=== PATIENT | female | born 1935 | race Caucasian/White ===

== ENCOUNTER → 2017-11-24 10:36 | Outpatient (CLI) | payer MEDICARE, OTHER, SELFPAY ==
--- NOTE | 2017-11-24 10:42 | RAD_ITS ---
STUDY: X-RAY CHEST REASON FOR EXAM: Female, 81 years old. Cough and chest pain. TECHNIQUE: Frontal and lateral views of the chest. COMPARISON: 07/26/2014. FINDINGS: The lungs are hyperexpanded. There are coarsened interstitial markings suggestive of mild chronic fibrosis. No gross focal infiltrates. No gross effusions. Normal size heart. Normal mediastinum and david. Normal visualized pulmonary arteries. Normal visualized aortic arch and descending thoracic aorta. There are diffuse degenerative changes of the visualized thoracic spine. Normal visualized ribs, clavicles, and shoulders. There is no demonstrated abnormality of the visualized soft tissue structures of the upper abdomen. RAD/Chest PA and Lateral IMPRESSION: There are findings consistent with COPD. There is no evidence of acute chest disease. Electronically Signed: César Ignacio MD at 18:13 EDT , Service support ,
== END ==
PROVIDERS: Family Provider Nurse Practitioner; PCP Nurse Practitioner; Visit Provider Nurse Practitioner
DX: N18.3 Chronic kidney disease, stage 3 (moderate) (principal)
CPT/HCPCS: 71046

== ENCOUNTER 2017-12-11 08:55 | Day surgery (SDC) | payer MEDICARE, OTHER, SELFPAY ==
[2017-12-11 09:32] VITALS: BP 142/77; PULSE 80; RESP 16; TEMP 37.1; O2SAT 98; BMI 24.0
[2017-12-11] MEDS: Phenazopyridine 95 MG Tablet 190 MG PO (09:48)
[2017-12-11] MEDS: Cefazolin 2 GM in 0.9% Normal Saline 100 ML IV (10:32)
[2017-12-11] MEDS: Bupiv/Epi 0.5% Mpf 30 ML Vial (10:35)
--- NOTE | 2017-12-11 11:45 | VAGMU_PTH ---
PATIENT: LINDSAY SALDIVAR LOC: [facility] [place] U#:[id number] AGE/SX: 81/F ROOM: RE12/11/[address]: Dr. Mary Jo Aguilar MD : [id number] BED: DIS: 12/11/2017 SPEC #: [id number] RECD: 12/11/17 12:26 STATUS: ZEYAD MALENA #: [id number] BROOKE: 12/11/17 11:[address]: Mary Jo Aguilar DEPT: SURGICAL PATHOLOGY RECD BY: Deangelo Bran ENTERED: 12/11/17 13:13 SP TYPE: VAG MUCOSA OTHR DR: Mary Jo Grier NP-Lynn Tissues: Vagina, NOS Procedures: Surgery Specimen Level III HEADER OPERATION: Colpocleisis perineoplasty cysto PRE-OP DIAGNOSIS: Vaginal vault prolapse TISSUE SUBMITTED: Vaginal mucosa MICROSCOPIC DIAGNOSIS Vaginal mucosa: Fragments of squamous mucosa with focal hyperkeratosis and parakeratosis. SJ:cammy 4/30/18 MICROSCOPIC DESCRIPTION Slides are reviewed. GROSS DESCRIPTION Received in fixative is one container labeled with the patient's name and designated vaginal mucosa. The specimen consists of three glistening fragments of pink-guadalupe mucosa with hemorrhagic submucosal tissue that in aggregate measure 8.5 x 6 x 0.5 cm. No mass lesions are identified. Crime Scene Photographer sections are submitted in one cassette. / AM:cammy 12/11/17 TC:5 CPT: 87094
--- NOTE | 2017-12-11 11:57 | PCM.OPRPT ---
Problem List (1) Vaginal vault prolapse after hysterectomy Status: Acute Report of Operation Date of Procedure: 12/11/17 Pre-Operative Diagnosis: vaginal vault prolapse after hysterectomy Post-Operative Diagnosis: same Surgery/Procedure Performed:: Colpocleisis, perineoplasty and cystoscopy Description of Surgical Findings:: The patient was taken to the operating room where general anesthesia was initiated. The patient was placed in dorsal lithotomy position and prepped and draped in sterile fashion. A surgical time out occurred. A coombs catheter was placed in the patient's bladder. The vaginal epithelium overlying the prolapsed vaginal vault was grasped with two Allis clamps, injected with 0.25% Marcaine with epinephrine and four incisions were performed to divide the vaginal wall into four quandrants. The underlying fascia was dissected off the overlying vaginal epithelium until the herniation of the fascia was completely exposed. Hemostasis was achieved with electrosurgical cautery. The herniation was repaired in the traditional fashion using imbricating purse string sutures of 2-O PDS on a CT-1 needle. Once the hernation was completely repaired, the redundant vaginal epithelium was excised and the incision was closed with a running, locking 3-O vicryl suture. Excellent hemostasis was noted. The perineoplasty was then performed by denuding the vaginal epithelium from 3 o'clock to 9 o'clock on the introitus along the posterior fourchette. The was then closed in three layers with 3-O vicryl. The vagina was packed with Kerlex gauze soaked in estrogen cream. Anesthesia was discontinued. All needle, instrument, and sponge counts were correct x 2. The patient was taken to recovery room in stable condition draining clear urine from her coombs catheter. clinical project assistant: Courtney Rivas Type of Anesthesia:: MAC/Supplemental/Local
[2017-12-11 12:02] VITALS: BP 107/65; BP 142/77; PULSE 82; RESP 16; TEMP 37.2; O2SAT 92
--- NOTE | 2017-12-11 12:06 | OP.PCM_ITS ---
Problem List (1) Vaginal vault prolapse after hysterectomy Status: Acute Report of Operation Date of Procedure: 12/11/17 Pre-Operative Diagnosis: vaginal vault prolapse after hysterectomy Post-Operative Diagnosis: same Surgery/Procedure Performed:: Colpocleisis, perineoplasty and cystoscopy Description of Surgical Findings:: The patient was taken to the operating room where general anesthesia was initiated. The patient was placed in dorsal lithotomy position and prepped and draped in sterile fashion. A surgical time out occurred. A coombs catheter was placed in the patient's bladder. The vaginal epithelium overlying the prolapsed vaginal vault was grasped with two Allis clamps, injected with 0.25% Marcaine with epinephrine and four incisions were performed to divide the vaginal wall into four quandrants. The underlying fascia was dissected off the overlying vaginal epithelium until the herniation of the fascia was completely exposed. Hemostasis was achieved with electrosurgical cautery. The herniation was repaired in the traditional fashion using imbricating purse string sutures of 2-O PDS on a CT-1 needle. Once the hernation was completely repaired, the redundant vaginal epithelium was excised and the incision was closed with a running, locking 3-O vicryl suture. Excellent hemostasis was noted. The perineoplasty was then performed by denuding the vaginal epithelium from 3 o 'clock to 9 o'clock on the introitus along the posterior fourchette. The was then closed in three layers with 3-O vicryl. The vagina was packed with Kerlex gauze soaked in estrogen cream. Anesthesia was discontinued. All needle, instrument, and sponge counts were correct x 2. The patient was taken to recovery room in stable condition draining clear urine from her coombs catheter. jewel bearing broacher: Courtney Rivas Type of Anesthesia:: MAC/Supplemental/Local
--- NOTE | 2017-12-11 12:07 | PCM.DC.GS ---
Discharge Activity: Return to Normal Activity, May not drive while taking narcotic pain medications. May shower in (days): 1 Call your doctor if your incision/area has: Continuous Slow Oozing, Sudden Increased Bleeding, Increased Pain/ Swelling, Increased Redness, Foul Smelling Discharge, Swelling at the incision site Call your doctor if you observe: Fever of 101 or Higher, Coldness, Increased Pain, Numbness or Tingling, Inability to urinate, Inability to have a bowel movement Allergies/Adverse Reactions: Allergies Sulfa (Sulfonamide Antibiotics) Allergy (Verified 09/30/14 07:27) Rash belladonna alkaloids Adverse Reaction (Verified 09/30/14 07:27) Other MADE ME FEEL WEIRD Medications to take at Discharge Amlodipine [Norvasc] 7.5 mg PO DAILY 08/23/14 Omeprazole [Prilosec] 40 mg PO DAILY 08/23/14 Paroxetine HCl [Paxil] 40 mg PO DAILY 08/23/14 Ibuprofen [Motrin] 800 mg PO TID PRN PRN #60 tablet 09/26/14 Albuterol IH (ProAir) [Proair Hfa (SP)Vent Pts] 1 puff INHALATION DAILY 12/04/17 Calcium Carbonate [Calcium] 600 mg PO DAILY 12/04/17 Cholecalciferol (Vitamin D3) [Vitamin D3] 2,000 unit PO BID 12/04/17 Levothyroxine [Synthroid] 50 mcg PO DAILY 12/04/17 Pyridoxine HCl [Vitamin B-6] 25 mg PO DAILY 12/04/17 Triamcinolone Acetonide [Nasacort] 1 spray NS DAILY 12/04/17 Primary Care Physician: Mary Jo Grier [Primary Care Provider] - Please Follow Up With: Mary Jo Aguilar MD When: 2 weeks Proposed Discharge Date: 12/11/17
[2017-12-11 12:10] VITALS: BP 117/66; BP 142/77; PULSE 95; RESP 16; O2SAT 94
[2017-12-11 12:15] VITALS: BP 112/76; BP 142/77; PULSE 95; RESP 16; O2SAT 95
[2017-12-11 12:20] VITALS: BP 122/70; BP 142/77; PULSE 92; RESP 16; TEMP 36.9; O2SAT 97
[2017-12-11 13:53] VITALS: BP 142/77
== END 2017-12-11 13:58 | disposition home or self-care (01) ==
LOC: SDC 08:55 → AC 08:57
PROVIDERS: Family Provider Nurse Practitioner; PCP Nurse Practitioner; Visit Provider Obstetrics & Gynecology
PROC: 0TJB8ZZ Inspection of Bladder, Via Natural or Artificial Opening Endoscopic (ICD-10-PCS; CPT 57120; principal; 2017-12-11 11:30)
DX: N90.4 Leukoplakia of vulva (principal); R23.4 Changes in skin texture; M19.90 Unspecified osteoarthritis, unspecified site; E78.00 Pure hypercholesterolemia, unspecified; K21.9 Gastro-esophageal reflux disease without esophagitis; F32.9 Major depressive disorder, single episode, unspecified; F41.9 Anxiety disorder, unspecified; J45.909 Unspecified asthma, uncomplicated; I10 Essential (primary) hypertension; E07.9 Disorder of thyroid, unspecified; Z90.710 Acquired absence of both cervix and uterus; Z79.51 Long term (current) use of inhaled steroids; Z79.899 Other long term (current) drug therapy
CPT/HCPCS: 56810; 57120; 88304; J7120; C1758; J1940

== ENCOUNTER → 2018-01-13 11:04 | Outpatient (CLI) | payer MEDICARE, OTHER, SELFPAY ==
--- NOTE | 2018-01-13 11:07 | RAD_ITS ---
STUDY: X-RAY - LEFT ANKLE REASON FOR EXAM: Female, 82 years old. Left ankle edema TECHNIQUE: 3 view(s) of the ankle. COMPARISON: None. FINDINGS: Normal visualized distal tibia and fibula. Normal medial and lateral malleoli. Normal tibiotalar articulation and ankle mortise. Normal visualized talus and calcaneus. The visualized subtalar, talonavicular, calcaneocuboid and tarsal articulations are normal. There is no demonstrated fracture. There is soft tissue swelling. RAD/Ankle min 3 Views IMPRESSION: Soft tissue edema. No acute bony abnormality. Electronically Signed: Jacky Bolaños DO at 10:50 EDT Tel , Service support ,
== END ==
PROVIDERS: Family Provider Nurse Practitioner; PCP Nurse Practitioner; Visit Provider Nurse Practitioner
DX: M25.471 Effusion, right ankle (principal)
CPT/HCPCS: 73610

== ENCOUNTER → 2018-04-08 10:51 | Outpatient (CLI) | payer MEDICARE, OTHER, SELFPAY ==
[2018-04-08 11:17] LABS: Mucous, Urine 0 SEEN /hpf (<or=2+); Red Blood Cells-Urine 0 SEEN /hpf (0-5); Squamous Epithelial Cells - UA 0 SEEN /hpf (5-10)
[2018-04-08 11:33] LABS: Color, Urine Yellow (Yellow); Glucose, Dipstick Normal (Normal); Ketone-Dipstick Negative (Negative); Leukocyte Esterase-Dipstick 500 /ul (Negative); Nitrite-Dipstick Negative (Negative); Occult Blood-Urine 250 /ul (Negative); Protein-Dipstick 100 mg/dl (Negative); Urine Bilirubin Dipstick Negative (Negative); Urine Clarity Turbid (Clear); Urine Urobilinogen Normal (Normal)
[2018-04-08 11:39] LABS: Bacteria 1+ /hpf (None Seen); White Blood Cells >100 SEEN /hpf (0-5)
== END ==
PROVIDERS: Family Provider Nurse Practitioner; PCP Nurse Practitioner; Visit Provider Obstetrics & Gynecology
DX: R31.9 Hematuria, unspecified (principal)
CPT/HCPCS: 81001; 87077; 87086; 87088; 87186

== ENCOUNTER → 2018-05-27 16:33 | Outpatient (CLI) | payer MEDICARE, OTHER, SELFPAY | PROVIDERS: Referring Provider Nurse Practitioner Adult Health; Visit Provider Nurse Practitioner Adult Health | DX: R31.9 Hematuria, unspecified (principal) | CPT/HCPCS: 87086 ==

== ENCOUNTER → 2018-08-05 10:02 | Outpatient (CLI) | payer MEDICARE, OTHER, SELFPAY ==
--- NOTE | 2018-08-05 10:05 | BI_ITS ---
MAMMOGRAPHY - BILATERAL SCREENING REASON FOR EXAM: Female, 82 years old. Routine annual screening examination. PERTINENT HISTORY: Sister with breast cancer. TECHNIQUE: Digital bilateral breast issa (3D mammographic acquisition) in the CC and MLO projections. 2-D mediolateral oblique (MLO) and craniocaudad (CC) views of both breasts were obtained. CAD: Full Field Digital Mammography with Computer Added Detection was performed. COMPARISON: Comparison is made with prior study dated September 23, 2016 and June 12, 2015. FINDINGS: Breast Composition: There are scattered areas of fibroglandular density. There are no dominant masses or suspicious calcifications. Stable benign-appearing bilateral axillary lymph nodes. No other significant abnormalities are identified. There has been no significant change since the prior study. BI/SCREENING MAMM (CAD), BILAT IMPRESSION: Stable bilateral screening mammogram. Yearly follow-up mammogram recommended. (A) ASSESSMENT CATEGORY: BIRADS Category 2: Benign. A letter regarding these results will be sent to the patient by the facility within 30 days. Approximately 10% of breast cancers are not detected by mammography. A normal mammogram should not delay biopsy of a clinically suspicious abnormality. [id number] Electronically Signed: Justen Norton MD at 15:27 EST Tel [phone], Service support ,
--- NOTE | 2018-08-05 10:22 | BD_ITS ---
STUDY: DUAL ENERGY X-RAY ABSORPTIOMETRY / DXA REASON FOR EXAM: Female, 82 years old. The patient is postmenopausal. Loss of height. TECHNIQUE: Bone Mineral Density (BMD) measurements of lumbar spine and bilateral hips were obtained. COMPARISON: Comparison is made with prior study dated July 12, 2013. FINDINGS: Lumbar Spine (L1-L4): g/cm2 (0.653) / T-score (-4.3) / Z-score (-2.4) Findings are suggestive of osteoporosis with a high fracture risk. Left Femur Total: g/cm2 (0.737) / T-score (-2.1) / Z-score (-0.1) Left Femoral Neck: g/cm2 (0.681) / T-score (-2.6) / Z-score (-0.4) Right Femur Total: g/cm2 (0.768) / T-score (-1.9) / Z-score (0.1) Right Femoral Neck: g/cm2 (0.679) / T-score (-2.6) / Z-score (-0.4) The T-Scores on the most recent prior examination were: Lumbar Spine (L1-L4): There has been worsening of bone density since the previous examination. Left Femur Total: which represents a worsening of 1.5%. Right Femur Total: which represents a worsening of 1.9%. BD/DXA BONE DENS W/VERT FX ASMT IMPRESSION: The patient is considered osteoporotic as outlined below according to World Anthony Organization (WHO) criteria with a high fracture risk. There has been worsening of bone density since the previous examination. Reference Information: The T-score is the number of standard deviations above or below the standard which is normal for young adults at their peak bone mineral density. The World Health Organization (WHO) interprets the T-scores as follows: Above -1 Normal bone density Between -1 and -2.5 Osteopenia Equal to / or below -2.5 Osteoporosis As a practical clinical guideline, osteopenia may be graded as follows: Mild -1 through -1.5 Moderate -1.6 through -2.0 Severe -2.1 through -2.4 The Z-score is the number of standard deviations above or below age-matched controls. A Z-score of less than -1.5 would be considered abnormal. References: 1. NIH Osteoporosis and Related Bone Diseases http://www.osteo.org 2. International Society for Clinical Densitometry http://www.iscd.org 3. National Osteoporosis Foundation http://www.nof.org Electronically Signed: Justen Norton MD at 10:45 EST Tel [phone], Service support ,
== END ==
PROVIDERS: Family Provider Nurse Practitioner; PCP Nurse Practitioner; Visit Provider Nurse Practitioner
DX: Z12.31 Encounter for screening mammogram for malignant neoplasm of breast (principal); Z78.0 Asymptomatic menopausal state
CPT/HCPCS: 77063; 77067; 77085

== ENCOUNTER → 2019-03-17 | Outpatient (CLI) | payer MEDICARE, OTHER, SELFPAY | END | disposition home or self-care (01) | LOC: LABSPEC 16:11 | PROVIDERS: Family Provider Nurse Practitioner; PCP Nurse Practitioner | DX: R30.0 Dysuria (principal) | CPT/HCPCS: 87077; 87086; 87088; 87186 ==

== ENCOUNTER → 2019-08-08 10:09 | Outpatient (CLI) | payer MEDICARE, OTHER, SELFPAY ==
--- NOTE | 2019-08-08 10:14 | BI_ITS ---
MAMMOGRAPHY - BILATERAL SCREENING 3-D TOMOSYNTHESIS REASON FOR EXAM: Female, 83 years old. 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 TECHNIQUE: 2-D mammograms and 3-D Tomosynthesis of the breast (s) were performed. CAD was performed. COMPARISON: 08/05/2018, 09/23/2016 FINDINGS: The breast composition is composed of scattered fibroglandular density. Scattered benign calcifications are seen. No dense spiculated masses or suspicious microcalcifications are identified. No architectural distortion is identified. There is no skin thickening or retraction. There has been no significant change since the prior study. BI/SCREEN MAMM (CAD) W/MARTI BILAT IMPRESSION: No mammographic signs of malignancy. Routine yearly mammograms recommended. ASSESSMENT CATEGORY: BIRADS Category 2: Benign. A letter regarding these results will be sent to the patient by the facility within 30 days. FOLLOW UP RECOMMENDATION: Yearly follow up mammogram recommended. (A) Approximately 10% of breast cancers are not detected by mammography. A normal mammogram should not delay biopsy of a clinically suspicious abnormality. Electronically Signed: Sina Bolden MD at 21:20 EST Tel [phone], Service support ,
== END ==
PROVIDERS: Family Provider Nurse Practitioner; PCP Nurse Practitioner; Referring Provider Nurse Practitioner; Visit Provider Nurse Practitioner
DX: Z12.31 Encounter for screening mammogram for malignant neoplasm of breast (principal)
CPT/HCPCS: 77063; 77067

== ENCOUNTER → 2020-02-29 | Outpatient (CLI) | payer MEDICARE, OTHER, SELFPAY ==
--- NOTE | 2020-02-29 15:40 | RAD_ITS ---
STUDY: X-RAY - RIGHT KNEE REASON FOR EXAM: Female, 84 years old. CHRONIC PAIN TECHNIQUE: 4 view(s) of the knee. COMPARISON: None. FINDINGS: Normal visualized distal femur. Normal visualized proximal tibia and fibula. Normal proximal tibiofibular articulation. There are mild degenerative changes with joint space narrowing of the medial knee compartment. Normal lateral femorotibial compartment. Normal patellofemoral articulation. The soft tissue structures are unremarkable. RAD/Knee 4 or More Views IMPRESSION: Mild degenerative changes with joint space narrowing of the medial knee compartment. Electronically Signed: Woody Otoole MD at 16:09 EDT , Service support ,
== END | disposition home or self-care (01) ==
LOC: HPRAD 15:35
PROVIDERS: PCP Nurse Practitioner; Referring Provider Nurse Practitioner; Visit Provider Nurse Practitioner
DX: M25.561 Pain in right knee (principal)
CPT/HCPCS: 73564

== ENCOUNTER → 2020-06-13 | Outpatient (CLI) | payer MEDICARE, OTHER, SELFPAY | END | disposition home or self-care (01) | LOC: LABSPEC 13:15 | PROVIDERS: PCP Nurse Practitioner; Visit Provider Nurse Practitioner Adult Health | DX: N39.0 Urinary tract infection, site not specified (principal) | CPT/HCPCS: 87077; 87086; 87088; 87186 ==

== ENCOUNTER → 2020-08-14 13:18 | Outpatient (CLI) | payer MEDICARE, OTHER, SELFPAY ==
--- NOTE | 2020-08-14 13:19 | BI_ITS ---
MAMMOGRAPHY - BILATERAL SCREENING REASON FOR EXAM: Female, 84 years old. Routine annual screening examination. PERTINENT HISTORY: FA HX OF SISTER @ AGE 43 - LT EXC BX 1980 - BILAT MOLES MARKED - CURRENT HRT CREAM X 2 YRS TECHNIQUE: Digital bilateral breast marti (3D mammographic acquisition) in the CC and MLO projections. 2-D mediolateral oblique (MLO) and craniocaudad (CC) views of both breasts were obtained. CAD: Full Field Digital Mammography with Computer Added Detection was performed. COMPARISON: None. FINDINGS: Breast Composition: The breasts are almost entirely fatty. There is a new partially circumscribed mass in the upper outer quadrant of the right breast measures 5 mm for which further evaluation by ultrasound is recommended. There are no suspicious calcifications. No other significant abnormalities are identified. BI/SCREEN MAMM (CAD) W/MARTI BILAT IMPRESSION: Further ultrasound evaluation recommended, as described above. (E) ASSESSMENT CATEGORY: BIRADS Category 0: Incomplete. Need additional imaging evaluation. A letter regarding these results will be sent to the patient by the facility within 30 days. Approximately 10% of breast cancers are not detected by mammography. A normal mammogram should not delay biopsy of a clinically suspicious abnormality. [id number] Electronically Signed: Ross Hutchinson, at 15:15 EST Tel , Service support ,
--- NOTE | 2020-08-14 13:22 | BD_ITS ---
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 COMPARISON: Comparison is made with prior study dated 08/05/2018. FINDINGS: Lumbar Spine (L1-L4): g/cm2 (0.641) / T-score (-4.4) / Z-score (-2.5) Findings are suggestive of osteoporosis with a high fracture risk. Left Femur Total: g/cm2 (0.748) / T-score (-2.1) / Z-score (0.1) Left Femoral Neck: g/cm2 (0.687) / T-score (-2.5) / Z-score (-0.3) Right Femur Total: g/cm2 (0.74) / T-score (-1.8) / Z-score (0.4) Right Femoral Neck: g/cm2 (0.684) / T-score (-2.5) / Z-score (-0.3) The T-Scores on the most recent prior examination were: Lumbar Spine (L1-L4): There has been worsening of bone density since the previous examination. Left Femur Total: which represents an improvement of 1.5%. Right Femur Total: which represents an improvement of 2.1%. BD/Dexa Bone Density Study IMPRESSION: The patient is considered osteoporotic as outlined below according to World Anthony Organization (WHO) criteria with a high fracture risk. There has been improvement of bone density since the previous examination. Reference Information: The T-score is the number of standard deviations above or below the standard which is normal for young adults at their peak bone mineral density. The World Health Organization (WHO) interprets the T-scores as follows: Above -1 Normal bone density Between -1 and -2.5 Osteopenia Equal to / or below -2.5 Osteoporosis As a practical clinical guideline, osteopenia may be graded as follows: Mild -1 through -1.5 Moderate -1.6 through -2.0 Severe -2.1 through -2.4 The Z-score is the number of standard deviations above or below age-matched controls. A Z-score of less than -1.5 would be considered abnormal. References: 1. NIH Osteoporosis and Related Bone Diseases www osteo.org 2. International Society for Clinical Densitometry www iscd.org 3. National Osteoporosis Foundation www nof.org Electronically Signed: Justen Norton, at 10:33 EST , Service support ,
== END ==
PROVIDERS: PCP Nurse Practitioner; Referring Provider Nurse Practitioner; Visit Provider Nurse Practitioner
DX: Z78.0 Asymptomatic menopausal state (principal); Z12.31 Encounter for screening mammogram for malignant neoplasm of breast
CPT/HCPCS: 77063; 77067; 77080

== ENCOUNTER → 2020-08-20 10:47 | Outpatient (CLI) | payer MEDICARE, OTHER, SELFPAY ==
--- NOTE | 2020-08-20 10:49 | US_ITS ---
STUDY: ULTRASOUND BREAST - RIGHT REASON FOR EXAM: Female, 84 years old. Abnormal screening mammogram. TECHNIQUE: Axial and longitudinal images of the RIGHT breast were performed with a high resolution ultrasound transducer. # OF IMAGES: 40 COMPARISON: Comparison is made with prior mammogram dated 08/14/2020. FINDINGS: RIGHT Breast: The mammographic abnormality corresponds to a 4 mm x 3 mm x 3 mm cyst at the 9 o''clock position of the breast at 5 cm from nipple. US/Breast Limited Unilateral IMPRESSION: The mammographic abnormality corresponds to a 4 mm x 3 mm x 3 mm cyst at the 9 o''clock position of the breast at 5 cm from the nipple. ASSESSMENT CATEGORY: BIRADS Category 2: Benign. A letter regarding these results will be sent to the patient by the facility within 30 days. Electronically Signed: Justen Norton, at 15:49 EST , Service support ,
== END ==
PROVIDERS: PCP Nurse Practitioner; Visit Provider Nurse Practitioner
DX: N63.11 Unspecified lump in the right breast, upper outer quadrant (principal)
CPT/HCPCS: 76642

== ENCOUNTER 2020-09-13 14:58 | Outpatient (RCR) | payer MEDICARE, OTHER, SELFPAY | END 2020-09-13 23:59 | LOC: IMMUN 14:58 | PROVIDERS: PCP Nurse Practitioner; Visit Provider Family Medicine | DX: Z23 Encounter for immunization (principal) | CPT/HCPCS: 0011A; 0012A; 91301 ==

== ENCOUNTER → 2021-04-15 | Outpatient (CLI) | payer MEDICARE, OTHER, SELFPAY | END | disposition home or self-care (01) | LOC: LABSPEC 16:50 | PROVIDERS: PCP Nurse Practitioner; Referring Provider Nurse Practitioner Adult Health; Visit Provider Nurse Practitioner Adult Health | DX: R30.0 Dysuria (principal) | CPT/HCPCS: 87086; 87088 ==

== ENCOUNTER 2021-09-24 16:50 | Outpatient (CLI) | payer MEDICARE, SELFPAY | END 2021-09-24 23:59 | disposition home or self-care (01) | LOC: LABSPEC 16:59 | PROVIDERS: PCP Nurse Practitioner; Visit Provider Urology | DX: R31.9 Hematuria, unspecified (principal) | CPT/HCPCS: 87086; 87088 ==

== ENCOUNTER 2021-11-05 16:51 | Outpatient (CLI) | payer MEDICARE, SELFPAY ==
[2021-11-05 16:55] LABS: Bacteria 0 SEEN /hpf (None Seen); Mucous, Urine 0 SEEN /hpf (<or=2+)
[2021-11-05 17:40] LABS: Color, Urine Yellow (Yellow); Glucose, Dipstick Normal (Normal); Ketone-Dipstick Negative (Negative); Leukocyte Esterase-Dipstick 500 /ul (Negative); Nitrite-Dipstick Negative (Negative); Occult Blood-Urine 150 /ul (Negative); Protein-Dipstick 15 mg/dl (Negative); Urine Bilirubin Dipstick Negative (Negative); Urine Clarity Sl. Cloudy (Clear); Urine Urobilinogen Normal (Normal)
[2021-11-05 17:50] LABS: Amorphous Sediment 1+ URATE; Red Blood Cells-Urine 5-10 SEEN /hpf (0-5); Squamous Epithelial Cells - UA 0-5 SEEN /hpf (5-10); White Blood Cells 50-100 SEEN /hpf (0-5)
== END 2021-11-05 23:59 | disposition home or self-care (01) ==
LOC: LABSPEC 16:52
PROVIDERS: PCP Nurse Practitioner; Visit Provider Obstetrics & Gynecology
DX: R35.0 Frequency of micturition (principal)
CPT/HCPCS: 81001; 87077; 87086; 87088; 87186

== ENCOUNTER 2021-11-12 16:52 | Outpatient (CLI) | payer MEDICARE, SELFPAY | END 2021-11-12 23:59 | disposition home or self-care (01) | LOC: LABSPEC 16:54 | PROVIDERS: PCP Nurse Practitioner; Referring Provider Urology; Visit Provider Urology | DX: R31.21 Asymptomatic microscopic hematuria (principal) | CPT/HCPCS: 87086; 87088 ==

== ENCOUNTER 2021-11-22 06:37 | Outpatient (CLI) | payer MEDICARE, SELFPAY ==
--- NOTE | 2021-11-22 06:42 | CT_ITS ---
STUDY: CT ABDOMEN AND PELVIS WITH AND WITHOUT CONTRAST REASON FOR EXAM: Female, 85 years old. CYSTITIS WITH HEMATURIA RADIATION DOSAGE (If Supplied By Facility): CTDIvol = ( 16.10 ) mGy, DLP = ( 1910.17 ) mGycm TECHNIQUE: Transaxial images were obtained from the dome of the diaphragm to the symphysis pubis without oral contrast. IV 100mL Isovue-300 was administered. Sagittal and coronal images were reconstructed. Individualized dose optimization techniques were used for this CT. COMPARISON: None. FINDINGS: Mild increased linear markings at the lung bases slightly more prominent on the right side suggestive of a mild linear scarring. Coronary artery calcification. Normal liver. There are surgical clips in the gallbladder fossa consistent with a prior cholecystectomy. Normal spleen. Normal pancreas. Normal bilateral adrenal glands. Normal right kidney. There is a 6.1 cm x 6.1 cm cyst in the lateral upper midportion of the left kidney. Normal visualized stomach. Normal small intestine. Normal colon. The appendix is visualized and appears normal. There is scattered atherosclerotic calcification of the abdominal aorta and its major visceral branches, without a demonstrated aneurysm. Normal inferior vena cava. Normal retroperitoneum. Mild degree of mural thickening at the base of the bladder more prominent on the right side. There is absence of the uterus consistent with a prior hysterectomy. There is a 3 cm cyst in the left ovary. Follow-up is recommended. There is a small umbilical hernia containing fat. There are degenerative changes of the visualized lumbar spine. 50% loss of height of the L4 vertebrae. CT/CT Abd/Pelvis W/WO Contrast IMPRESSION: 6.1 cm x 6.1 cm cyst in the lateral upper midportion of the left kidney. 3 cm cyst in the left ovary. Follow-up is recommended. Mild degree of mural thickening at the base of the bladder more prominent on the right side. Electronically Signed: Justen Norton MD at 14:05 EDT ,
== END 2021-11-22 23:59 | disposition home or self-care (01) ==
PROVIDERS: PCP Nurse Practitioner; Referring Provider Urology; Visit Provider Urology
DX: N30.01 Acute cystitis with hematuria (principal)
CPT/HCPCS: 74178; Q9967

== ENCOUNTER → 2022-01-06 | Outpatient (CLI) | payer MEDICARE, SELFPAY ==
--- NOTE | 2022-01-06 14:57 | VDLE_ITS ---
Reason For Study: Pain RIGHT LEFT CFV is compressible, spontaneous, phasic, GSV is normal. competent and demonstrates normal CFV is compressible, spontaneous, phasic, augmentation. competent, and demonstrates normal Procedure augmentation. This is a venous duplex using B-mode, color FV is compressible, spontaneous, phasic, flow and spectral Doppler. competent and demonstrates normal Exam performed in department. augmentation. A preliminary report was called and/or faxed POP V is compressible, spontaneous, phasic, to Dr. Paige. competent and demonstrates normal augmentation. T/P Trunk is compressible. PTV is compressible. LT PerV is compressible. VL/Venous Duplex US, Unilateral Interpretation Summary There is no evidence of left lower extremity deep vein thrombosis. Left great s aphenous vein appears patent and compressible segmentally. Normal flow patterns right common femoral vein Ordering Physician: Irasema Paige Referring Physician: Irasema Paige Performed By: Luna Sam, PETE, RVT
== END | disposition home or self-care (01) ==
LOC: CVS 14:55
PROVIDERS: PCP Internal Medicine; Visit Provider Internal Medicine
DX: M79.662 Pain in left lower leg (principal)
CPT/HCPCS: 93971

== ENCOUNTER → 2022-10-08 | Outpatient (CLI) | payer MEDICARE, SELFPAY ==
--- NOTE | 2022-10-08 14:19 | US_ITS ---
INDICATION: Ovarian cyst, left EXAMINATION: Ultrasound US Pelvis Non-OB Complete TECHNIQUE: Transabdominal and transvaginal pelvic ultrasound was performed. Grayscale, spectral waveform, and color flow Doppler evaluation of the adnexa. COMPARISON: CT 11/22/2021. FINDINGS: UTERUS: Surgically absent. RIGHT OVARY: Not visualized. LEFT OVARY: Measures 4 x 3.8 x 2.6 cm. Non-enlarged, normal echogenicity. There is normal arterial inflow and venous outflow present in the left ovary. There is a well-circumscribed anechoic simple appearing cyst in the left ovary measuring 3.3 cm. FREE FLUID: None. US/Pelvic (Non ) IMPRESSION: Simple 3.3 cm cyst in the left ovary. Electronically Signed: Robert Simpson MD at 23:29 EST ,
== END | disposition home or self-care (01) ==
PROVIDERS: PCP Nurse Practitioner Family; Visit Provider Nurse Practitioner Family
DX: N83.202 Unspecified ovarian cyst, left side (principal)
CPT/HCPCS: 76856

== ENCOUNTER → 2022-10-15 | Outpatient (CLI) | payer MEDICARE, SELFPAY ==
[2022-10-17 08:29] LABS: Cancer Antigen 125 12.9 U/mL (0.0-38.1)
== END | disposition home or self-care (01) ==
PROVIDERS: PCP Nurse Practitioner Family; Referring Provider Nurse Practitioner Family; Visit Provider Nurse Practitioner Family
DX: N83.202 Unspecified ovarian cyst, left side (principal)
CPT/HCPCS: 36415; 86304

== ENCOUNTER 2023-04-15 11:14 | Emergency (ER) | payer MEDICARE, SELFPAY ==
[2023-04-15 11:15] VITALS: BP 146/88; PULSE 86; RESP 14; TEMP 36.2; O2SAT 97; BMI 25.7
--- NOTE | 2023-04-15 11:35 | CT_ITS ---
STUDY: CT ABDOMEN AND PELVIS WITH CONTRAST REASON FOR EXAM: Female, 87 years old. rlq abdominal pain. PRIOR CHOLECYSTECTOMY,HYSTERECTOMY RADIATION DOSAGE (If Supplied By Facility): CTDIvol = ( 12.46 ) mGy, DLP = ( 863.89 ) mGycm TECHNIQUE: Transaxial images were obtained from the dome of the diaphragm to the symphysis pubis without oral contrast. IV 100mL Isovue-300 was administered. Sagittal and coronal images were reconstructed. Individualized dose optimization techniques were used for this CT. COMPARISON: Comparison is made with prior study dated November 22, 2021. FINDINGS: Mild increase in markings at the lung bases suggestive of linear atelectasis and/or scarring. Coronary artery calcification. Normal liver. There are surgical clips in the gallbladder fossa consistent with a prior cholecystectomy. Normal spleen. Normal pancreas. Normal bilateral adrenal glands. Normal right kidney. There is a 6.8 cm x 6.5 cm cyst in the mid lower pole of the left kidney. There is a small hiatal hernia. Normal small intestine. Normal colon. There is non-visualization of the appendix. There is scattered atherosclerotic calcification of the abdominal aorta, without a demonstrated aneurysm. Normal inferior vena cava. Normal retroperitoneum. Normal urinary bladder. There is a 2.9 cm x 3.2 cm cyst in the left ovary. This is essentially unchanged as compared to prior study. The patient is status post hysterectomy. There is a small umbilical hernia containing fat. There are degenerative changes of the visualized lumbar spine. Stable loss of height of the superior endplate of the L4 vertebrae. CT/Abdomen/Pelvis W IV Cont ONLY IMPRESSION: Status post cholecystectomy. Stable left renal cyst. Stable cyst in the left ovary. Electronically Signed: Justen Norton MD at 13:49 EDT ,
[2023-04-15] MEDS: 0.9% Normal Saline 1,000 ML 1000 ML IV (11:43)
[2023-04-15] MEDS: Ketorolac 15 MG/ML Vial IV (11:43)
[2023-04-15 11:51] LABS: Absolute Lymphocyte Count 1.24 X10^3/uL (0.83-4.51); Basophil# 0.02 X10^3/uL; Basophil% 0.3 % (0-1); Eosinophil# 0.13 X10^3/uL; Eosinophils% 1.6 % (0-5); Hematocrit 41.9 % (37-47); Hemoglobin 13.7 g/dL (12.0-15.0); Lymphocyte # 1.24 X10^3/ul (0.83-4.51); Lymphocyte % 15.7 % (19-41); Mean Corp Hgb Conc 32.7 g/dL (32-36); Mean Corpuscular Hgb 29.5 pg (27.0-32.0); Mean Corpuscular Volume 90.1 fL (81-99); Mean Platelet Vol. 10.2 fl (6.2-12.0); Monocyte# 0.48 X10^3/uL; Monocyte% 6.1 % (0-10); NRBC Flagged by Analyzer 0 % (0-5); Neutrophil # 6.01 X10^3/uL (2.7-7.7); Platelet Count 195 K/mm3 (150-450); RBC Distribution Width SD 42.9 fl (35.1-43.9); Red Blood Count 4.65 M/mm3 (4.2-5.4); White Blood Count 7.9 K/mm3 (4.4-11.0)
[2023-04-15 12:07] LABS: AST(SGOT) 11 U/L (15-37); Alanine Aminotransfer ALT/SGPT 16 U/L (13-56); Albumin, Serum 3.8 g/dL (3.2-5.0); Alkaline Phosphatase 101 U/L (45-117); Anion Gap 7 (5-15); BUN 26 mg/dL (7-18); BUN/Creat Ratio 18.8 RATIO (10-20); Calcium,Total 9.3 mg/dL (8.5-10.1); Chloride 106 mmol/L (98-107); Creatinine, Serum 1.38 mg/dL (0.55-1.02); EST Glomerular Filtration Rate 39 mL/min (>60); Est Glom Filt Rate - Afr Amer 47 mL/min (>60); Estimated Creatinine Clearance 25.74 ml/min; Globulin 3.8 g/dL (2.2-4.2); Glucose 143 mg/dL (74-106); Lipase 29 U/L (13-75); Potassium 4.1 mmol/L (3.5-5.1); Protein, Total 7.6 g/dL (6.4-8.2); Sodium Level 138 mmol/L (136-145)
[2023-04-15 13:00] LABS: Mucous, Urine 0 SEEN /hpf (<or=2+)
[2023-04-15 13:08] LABS: Color, Urine Yellow (Yellow); Glucose, Dipstick Normal (Normal); Ketone-Dipstick Negative (Negative); Leukocyte Esterase-Dipstick 25 /ul (Negative); Nitrite-Dipstick Negative (Negative); Occult Blood-Urine 25 /ul (Negative); Protein-Dipstick Negative (Negative); Urine Bilirubin Dipstick Negative (Negative); Urine Clarity Clear (Clear); Urine Urobilinogen Normal (Normal)
[2023-04-15 13:14] VITALS: BP 140/78; PULSE 79; RESP 18; O2SAT 96
[2023-04-15 13:21] LABS: Bacteria RARE /hpf (None Seen); Red Blood Cells-Urine 0-5 SEEN /hpf (0-5); Squamous Epithelial Cells - UA 0-5 SEEN /hpf (5-10); White Blood Cells 10-25 SEEN /hpf (0-5)
--- NOTE | 2023-04-15 13:53 | ED.VIS.GI ---
HPI HPI - GI History of Present Illness Chief Complaint: Abd Pain Narrative Narrative: 87-year-old female with right lower abdominal pain. This started this morning upon awakening. Denies fever, chills, nausea, vomiting, diarrhea, constipation. No urinary or vaginal complaints. Patient states she feels otherwise well. She took some ibuprofen for pain and this did not take her pain completely away. Patient has had history of hysterectomy and cholecystectomy but no history of bowel obstruction. [facility] Medical History Arthritis Hemorrhoids Hypertension Knee pain Thyroid disease Home Medications Omeprazole [Prilosec] 40 mg PO DAILY 08/23/14 [History Last Taken 12/11/17 08:15 1] amlodipine 5 mg tablet 7.5 mg PO DAILY 08/23/14 [History Last Taken 12/11/17 08:15 1] paroxetine HCl 40 mg tablet (Paxil) 40 mg PO DAILY 08/23/14 [History Last Taken Unknown] Ibuprofen [Motrin] 800 mg PO TID PRN PRN Abdominal Pain #60 tabs 09/26/14 [Rx Last Taken Unknown] albuterol sulfate 90 mcg/actuation aerosol inhaler (ProAir HFA) 1 puff inhalation DAILY 12/04/17 [History Last Taken Unknown] calcium carbonate 600 mg calcium (1,500 mg) tablet 600 mg PO DAILY 12/04/17 [History Last Taken Unknown] cholecalciferol (vitamin D3) 50 mcg (2,000 unit) chewable tablet 2,000 unit PO BID 12/04/17 [History Last Taken Unknown] levothyroxine 50 mcg tablet 50 mcg PO DAILY 12/04/17 [History Last Taken 12/11/17 08:15 1] pyridoxine (vitamin B6) 25 mg tablet (Vitamin B-6) 25 mg PO DAILY 12/04/17 [History Last Taken Unknown] triamcinolone acetonide 55 mcg nasal spray aerosol (Nasacort) 1 spray NS DAILY 12/04/17 [History Last Taken Unknown] Allergy/AdvReac Type Severity Reaction Status Date / Time Sulfa (Sulfonamide Allergy Rash Verified 04/15/23 11:17 Antibiotics) belladonna alkaloids AdvReac Other Verified 04/15/23 11:17 Social History Smoking Status: Never smoker ROS ROS ED Constitutional Constitutional ED: Denies chills, fever(s) or sweats Eyes Eyes: Denies blurry vision or change in vision ENT ENT ED: Denies ear pain or sore throat Cardiovascular Cardiovascular: Denies chest pain, palpitations or racing heartbeat Respiratory/Chest Respiratory/Chest: Denies cough, dyspnea or sputum Gastrointestinal Gastrointestinal: Reports abdominal pain; Denies constipation, diarrhea, nausea or vomiting Genitourinary Genitourinary ED: Denies dysuria, hematuria or urinary frequency Musculoskeletal Musculoskeletal: Denies arthralgias, myalgias or neck pain Integumentary Denies abscess, Abrasions or rash Neurologic Neurologic: Denies headache(s), paresthesias or weakness Psychiatric Psychiatric: Denies anxiety, depression, suicidal ideation or suicidal thoughts Endocrine Endocrinology: Denies polydipsia or polyuria EXAM Physical Exam Const Vital Signs: 04/15/23 11:15 Temperature 97.2 F L Temperature Source Temporal Pulse Rate 86 Respiratory Rate 14 Blood Pressure 146/88 H Blood Pressure Mean 107 Pulse Ox 97 Oxygen Delivery Method Room Air Positive well nourished General Appearance ED: NAD HEENT Reports moist mucous membranes Eyes PERRL and EOMs intact bilaterally Neck no lymphadenopathy Resp normal respiratory effort Effort and Inspection: Negative for respiratory distress Cardio regular rate and regular rhythm GI Palpation: tender RLQ Back/Spine no CVA tenderness Neuro CN's II-XII intact bilaterally, moves all extremities and no sensory deficits noted Sensorium / Orientation: alert, oriented to person, oriented to place and oriented to time Psych mental status grossly normal and thought process normal Skin no wounds MDM MDM MDM Narrative Medical decision making narrative: Patient presenting with right lower quadrant abdominal pain which started this morning no history of kidney stones. Not have any urinary complaints or vaginal complaints. She has no associated symptoms other than the pain. No fevers or chills. Patient declines medication other than Toradol but this was given. Differential includes colitis, appendicitis, diverticulitis, UTI, pyelonephritis, constipation, small bowel obstruction. CBC was obtained to assess white blood cell count, hemoglobin, platelets. CMP to assess liver function, renal function, electrolytes. Lipase to assess for pancreatitis. Urinalysis to assess for UTI. CT of the abdomen pelvis was obtained to assess for intra-abdominal abnormalities. BC shows no leukocytosis with white blood cell count of 7.9. Hemoglobin 13.7. Platelets 195. Creatinine slightly elevated today at 1.38 and the patient was given a liter of normal saline. Her last creatinine was 1.19. Urinalysis negative for infection. Liver enzymes and lipase normal. CT of the abdomen pelvis with IV contrast shows left renal cyst and left ovarian cyst but nothing acute on the right side of her abdomen. I this point the patient ultimately has a negative work-up and is stable for discharge home. I will give her return precautions. Impression: 1. Abdominal pain Lab Data Attestation: I reviewed the patient's lab results. Labs: Laboratory Results - last 24 hr 04/15/23 04/15/23 11:43 11:56 WBC 7.9 RBC 4.65 Hgb 13.7 Hct 41.9 MCV 90.1 MCH 29.5 MCHC 32.7 RDW Std Deviation 42.9 RDW Coeff of Paula 13.0 Plt Count 195 MPV 10.2 Immature Gran % (Auto) 0.300 Neut % (Auto) 76.0 H Lymph % (Auto) 15.7 L Wise % (Auto) 6.1 Eos % (Auto) 1.6 Baso % (Auto) 0.3 Absolute Neuts (auto) 6.0 Absolute Lymphs (auto) 1.24 Nucleated RBC % 0 Sodium 138 Potassium 4.1 Chloride 106 Carbon Dioxide 25.0 Anion Gap 7 BUN 26 H Creatinine 1.38 H Estim Creat Clear Calc 25.74 Est GFR (MDRD) Af Amer 47 L Est GFR (MDRD) Non-Af 39 L BUN/Creatinine Ratio 18.8 Glucose 143 H Calcium 9.3 Total Bilirubin 0.50 AST 11 L ALT 16 Alkaline Phosphatase 101 Total Protein 7.6 Albumin 3.8 Globulin 3.8 Albumin/Globulin Ratio 1.0 Lipase 29 Urine Color Yellow Urine Clarity Clear Urine pH 7.0 Ur Specific [place] 1.010 Urine Protein Negative Urine Glucose (UA) Normal Urine Ketones Negative Urine Occult Blood 25 H Urine Nitrite Negative Urine Bilirubin Negative Urine Urobilinogen Normal Ur Leukocyte Esterase 25 H Urine RBC 0-5 SEEN Urine WBC 10-25 SEEN Ur Squamous Epith Cells 0-5 SEEN Urine Bacteria RARE Urine Mucus 0 SEEN Radiography Diagnostic Testing: Clinical Impression(s) from Imaging Studies Abdomen/Pelvis CT 04/15/23 11:35 IMPRESSION: Status post cholecystectomy. Stable left renal cyst. Stable cyst in the left ovary. Electronically Signed: Justen Norton MD at 13:49 EDT , Discharge Plan Triage Chief Complaint: Abd Pain ED Provider: Walt Nam Dx/Rx/DC Orders Instructions: ED Abdominal Pain Unkn Cause Fem Prescriptions: No Action amlodipine 5 MG tablet 7.5 mg PO DAILY Patient Comments: ELEVATED BLOOD PRESSURE paroxetine HCl [Paxil] 40 MG tablet 40 mg PO DAILY Patient Comments: DEPRESSION Omeprazole [Prilosec] 40 MG capsule 40 mg PO DAILY Patient Comments: STOMACH/INDIGESTION Ibuprofen [Motrin] 800 MG tablet 800 mg PO TID PRN PRN (Reason: Abdominal Pain) Qty: 60 1RF Patient Comments: PAIN pyridoxine (vitamin B6) [Vitamin B-6] 25 MG tablet 25 mg PO DAILY calcium carbonate 600 MG tablet 600 mg PO DAILY levothyroxine 50 MCG tablet 50 mcg PO DAILY triamcinolone acetonide [Nasacort] 1 SPRAY aerosol,spray 1 spray NS DAILY albuterol sulfate [ProAir HFA] 1 PUFF inhaler 1 puff inhalation DAILY cholecalciferol (vitamin D3) 2,000 UNIT tablet,chewable 2,000 unit PO BID Primary Care Provider: Bell Gaffney Referrals: Bell Gaffney, ADMINISTRATIVE ASSISTANT OFFICE MANAGER-C [Primary Care Provider] - Disposition Disposition: Home, Self Care
[2023-04-15 13:54] VITALS: BP 141/69; PULSE 80; RESP 16; O2SAT 96
[2023-04-15 14:17] VITALS: BP 136/55; PULSE 76; RESP 18; O2SAT 98
== END 2023-04-15 14:18 | disposition home or self-care (01) ==
PROVIDERS: Emergency Provider Student in an Organized Health Care Education/Training Program; PCP Nurse Practitioner Family; Visit Provider Student in an Organized Health Care Education/Training Program
DX: R10.31 Right lower quadrant pain (principal); N28.1 Cyst of kidney, acquired; N83.202 Unspecified ovarian cyst, left side; I10 Essential (primary) hypertension
CPT/HCPCS: 74177; 80053; 81001; 83690; 85025; 96361; 96374; 99283; J7030; Q9967; A4216

== ENCOUNTER 2023-05-10 18:36 | Emergency (ER) | payer MEDICARE, SELFPAY ==
[2023-05-10 18:38] VITALS: BP 155/83; PULSE 104; RESP 18; TEMP 37.2; O2SAT 94; BMI 26.6
--- NOTE | 2023-05-10 19:26 | CT_ITS ---
STUDY: CT Abdomen And Pelvis W/ Contrast Injection 05/10/2023 8:33 PM REASON FOR EXAM: Female, 87 years old. Abdominal pain LLQ abdominal pain Individualized dose optimization techniques were used for this CT. COMPARISON: 04.15.23. TECHNIQUE: CT Abdomen And Pelvis W/ Contrast Injection IV 75mL Isovue-370 FINDINGS: There are atherosclerotic calcifications of visualized coronary arteries. The visualized portions of the heart are within normal limits. Normal liver. There are surgical clips in the gallbladder fossa consistent with a prior cholecystectomy. Normal spleen. Normal pancreas. Normal bilateral adrenal glands. No acute findings of the right kidney. There are hypodensities in the left kidney. These are consistent for cysts. No follow up required. Normal visualized stomach. Normal small intestine. Stool throughout the colon. The appendix is visualized and appears normal. There are calcifications of the abdominal aorta. This is consistent for atherosclerotic disease. There is NO abdominal aortic aneurysm. Vascular workup can be obtained based on clinical correlation. Normal inferior vena cava. Subcentimeter mesenteric lymph nodes. Normal urinary bladder. There is absence of the uterus consistent with a prior hysterectomy. 24 mm simple left ovarian cyst. There is an umbilical hernia containing fat. There are diffuse degenerative changes of the visualized lumbar spine. Stable superior endplate compression deformity of L4. 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 CT/Abdomen/Pelvis W IV Cont ONLY IMPRESSION: (NOT LISTED IN ORDER OF SIGNIFICANCE) Since the prior study there has been development of an inferior endplate compression deformity of T12. There are no acute findings. Other findings as above. Electronically Signed: Hiram Branham MD at 20:40 EDT ,
[2023-05-10 19:43] LABS: Absolute Neutrophil Count 6.2 X10^3/uL (2.0-7.7); Basophil# 0.03 X10^3/uL; Basophil% 0.4 % (0-1); Eosinophil# 0.34 X10^3/uL; Hematocrit 41.7 % (37-47); Hemoglobin 13.7 g/dL (12.0-15.0); Lymphocyte % 14.3 % (19-41); Mean Corp Hgb Conc 32.9 g/dL (32-36); Mean Corpuscular Hgb 29.3 pg (27.0-32.0); Mean Corpuscular Volume 89.3 fL (81-99); Mean Platelet Vol. 9.7 fl (6.2-12.0); Monocyte# 0.58 X10^3/uL; Monocyte% 6.9 % (0-10); NRBC Flagged by Analyzer 0 % (0-5); Neutrophil # 6.21 X10^3/uL (2.7-7.7); Neutrophil % 73.9 % (47-70); Platelet Count 212 K/mm3 (150-450); RBC Distribution Width SD 42.5 fl (35.1-43.9); Red Blood Count 4.67 M/mm3 (4.2-5.4); White Blood Count 8.4 K/mm3 (4.4-11.0)
--- NOTE | 2023-05-10 19:48 | EDS_ITS ---
HPI <CHIRAG Babb - Last Filed: 05/10/23 21:13> History of Present Illness Chief Complaint: Abd Pain Narrative Narrative: Patient is an 87-year-old female with history of hypertension, hyperlipidemia,, hypothyroidism who presents to the emergency department with 1 week of left lower quadrant abdominal pain. Patient states the pain is getting worse, she does have some bowel changes such as being constipated for the last 3 days. She states the pain is worse when she wears tight pants over the area, as well as bend down. She does have history of diverticula however no history of diverticulitis. Patient denies any fever or chills. Patient denies any blood in the stool or vomit. PFSH <CHIRAG Babb - Last Filed: 05/10/23 21:13> [facility] Medical History Arthritis Hemorrhoids Hypertension Knee pain Thyroid disease Home Medications Omeprazole [Prilosec] 40 mg PO DAILY 08/23/14 [History Last Taken 12/11/17 08:15 1] amlodipine 5 mg tablet 7.5 mg PO DAILY 08/23/14 [History Last Taken 12/11/17 08:15 1] paroxetine HCl 40 mg tablet (Paxil) 40 mg PO DAILY 08/23/14 [History Last Taken Unknown] Ibuprofen [Motrin] 800 mg PO TID PRN PRN Abdominal Pain #60 tabs 09/26/14 [Rx Last Taken Unknown] albuterol sulfate 90 mcg/actuation aerosol inhaler (ProAir HFA) 1 puff inhalation DAILY 12/04/17 [History Last Taken Unknown] calcium carbonate 600 mg calcium (1,500 mg) tablet 600 mg PO DAILY 12/04/17 [History Last Taken Unknown] cholecalciferol (vitamin D3) 50 mcg (2,000 unit) chewable tablet 2,000 unit PO BID 12/04/17 [History Last Taken Unknown] levothyroxine 50 mcg tablet 50 mcg PO DAILY 12/04/17 [History Last Taken 12/11/17 08:15 1] pyridoxine (vitamin B6) 25 mg tablet (Vitamin B-6) 25 mg PO DAILY 12/04/17 [History Last Taken Unknown] triamcinolone acetonide 55 mcg nasal spray aerosol (Nasacort) 1 spray NS DAILY 12/04/17 [History Last Taken Unknown] Allergy/AdvReac Type Severity Reaction Status Date / Time Sulfa (Sulfonamide Allergy Rash Verified 05/10/23 18:38 Antibiotics) belladonna alkaloids AdvReac Other Verified 05/10/23 18:38 Social History Smoking Status: Never smoker ROS <CHIRAG Babb - Last Filed: 05/10/23 21:13> ROS ED ROS Narrative Constitutional: Negative for fever, chills, weight loss, weakness Eyes: Negative for vision loss, vision change, double vision ENT: Negative for any sore throat, ear pain, congestion Cardiovascular: Negative for any chest pain, tightness, palpitations Respiratory: Negative for any cough, sputum production, hemoptysis, dyspnea, dyspnea on exertion, orthopnea Gastrointestinal: Negative for any nausea, vomiting, diarrhea, constipation, blood in stool, blood in vomit. Positive for left lower quadrant abdominal pain : Negative for any urinary frequency, dysuria, retention, blood in urine Muscle skeletal: Negative for any muscle joint pain, stiffness, myalgias, arthralgias, neck pain, back pain Neurological: Negative for any headache, syncope, numbness or tingling, dizziness Skin: Negative for any rashes, lumps, itching, abrasions, lacerations Psychiatric: Negative for any depression, anxiety, stress, suicidal ideation, homicidal ideation Hematologic: Negative for any easy bruising, excessive bruising, easy bleeding Allergies: Negative for any eczema, hives, rash EXAM <CHIRAG Babb - Last Filed: 05/10/23 21:13> Physical Exam Narrative Exam Narrative: Vital signs reviewed. HEET: Head normocephalic atraumatic, TMs clear bilaterally. Posterior pharynx is clear, moist mucous membranes. Nares clear bilaterally. Neck: Supple with no lymphadenopathy or tenderness. No signs of meningismus, negative jolt sign. Cardiac: Regular rate and rhythm no murmurs gallops or rubs, equal peripheral pulses bilaterally. Respiratory: Lungs clear to auscultation bilaterally. No chest tenderness. Abdomen: Soft. No abdominal bruit or pulsatile masses. No hepatosplenomegaly. Patient's abdomen does appear slightly firm and distended however patient has no significant pain on palpation. Patient has minimal pain to the left lower quadrant on deep palpation. Hypoactive bowel sounds. Extremities: No peripheral edema, no signs of gross trauma or deformity. Active full range of motion of all extremities. Neuro: Cranial nerves II through XII intact, no focal neurological deficits. Skin: Clean dry and intact with no rash, purpura, petechiae, vesicles or pustules. Backs/flank: No CVA tenderness, no midline spinal tenderness, no deformity. Psych: Normal mood and affect. No SI, HI or acute psychosis. Const Vital Signs: 05/10/23 18:38 Temperature 99 F Temperature Source Temporal Pulse Rate 104 H Respiratory Rate 18 Blood Pressure 155/83 H Blood Pressure Mean 107 Pulse Ox 94 Oxygen Delivery Method Room Air <Dr. Sandoval Aguiar DO - Last Filed: 05/10/23 21:16> Physical Exam Const Vital Signs: 05/10/23 18:38 Temperature 99 F Temperature Source Temporal Pulse Rate 104 H Respiratory Rate 18 Blood Pressure 155/83 H Blood Pressure Mean 107 Pulse Ox 94 Oxygen Delivery Method Room Air MDM <CHIRAG Babb - Last Filed: 05/10/23 21:13> [facility] Lab Data Labs: Laboratory Results - last 24 hr 05/10/23 05/10/23 19:33 19:55 WBC 8.4 RBC 4.67 Hgb 13.7 Hct 41.7 MCV 89.3 MCH 29.3 MCHC 32.9 RDW Std Deviation 42.5 RDW Coeff of Paula 13.0 Plt Count 212 MPV 9.7 Immature Gran % (Auto) 0.500 Neut % (Auto) 73.9 H Lymph % (Auto) 14.[address] % (Auto) 6.9 Eos % (Auto) 4.0 Baso % (Auto) 0.4 Absolute Neuts (auto) 6.2 Absolute Lymphs (auto) 1.20 Nucleated RBC % 0 Sodium 138 Potassium 3.8 Chloride 104 Carbon Dioxide 26.0 Anion Gap 8 BUN 27 H Creatinine 1.38 H Estim Creat Clear Calc 25.74 Est GFR (MDRD) Af Amer 47 L Est GFR (MDRD) Non-Af 39 L BUN/Creatinine Ratio 19.6 Glucose 131 H Calcium 9.0 Urine Color Yellow Urine Clarity Cloudy Urine pH 6.0 Ur Specific [place] 1.010 Urine Protein 15 H Urine Glucose (UA) Normal Urine Ketones Negative Urine Occult Blood 50 H Urine Nitrite Negative Urine Bilirubin Negative Urine Urobilinogen Normal Ur Leukocyte Esterase 500 H Urine RBC 5-10 SEEN Urine WBC 50-100 SEEN Ur Squamous Epith Cells 10-25 SEEN Ur Transition Epith Cell 0 SEEN Urine Bacteria 1+ Urine Mucus 0 SEEN Radiography Diagnostic Testing: Clinical Impression(s) from Imaging Studies Abdomen/Pelvis CT 05/10/23 19:26 IMPRESSION: (NOT LISTED IN ORDER OF SIGNIFICANCE) Since the prior study there has been development of an inferior endplate compression deformity of T12. There are no acute findings. Other findings as above. Electronically Signed: Hiram Branham MD at 20:40 EDT , Treatment and Re-Evaluation :: Patient appears generally well, patient appears nontoxic, vital signs are stable. Presenting to the emergency department with complaints of left lower quadrant abdominal pain for the last week that is getting worse. Patient will receive a full abdominal work-up including CBC, BMP, urinalysis. CT scan of the abdomen pelvis with IV contrast to rule out any diverticulitis, bowel obstruction, colitis, constipation. All radiologic examinations were read, reviewed by the emergency department attending. From these reads, a plan of care will be put in place. Patient's laboratory values show normal CBC, patient's chemistries showed normal electrolytes, BUN was 27, creatinine is 1.38, this is baseline for the patient, 1 month ago it was 1.38 as well, blood glucose 131. Patient on reevaluation appears to be in no distress. Patient did receive a CT scan of the M pelvis without contrast. Currently waiting for the read. CT scan abdomen pelvis with IV contrast shows since the prior study there has been development of inferior endplate compression deformity at T12. There are no acute findings. Other findings as above. Patient has a normal urinary bladder. There is an absent uterus consistent with a prior hysterectomy. 24 mm simple left ovarian cyst. Patient has history of this. Patient at this time will follow-up outpatient. Patient's urinalysis did show bacteria however it was grossly contaminated, this was sent for culture. Patient will follow-up outpatient. At this time there is no evidence of acute diverticulitis, bowel obstruction, perforation, bowel obstruction. Patient stable for discharge <Dr. Sandoval Aguiar, DO - Last Filed: 05/10/23 21:16> [facility] Lab Data Attestation: I reviewed the patient's lab results. Labs: Laboratory Results - last 24 hr 05/10/23 05/10/23 19:33 19:55 WBC 8.4 RBC 4.67 Hgb 13.7 Hct 41.7 MCV 89.3 MCH 29.3 MCHC 32.9 RDW Std Deviation 42.5 RDW Coeff of Paula 13.0 Plt Count 212 MPV 9.7 Immature Gran % (Auto) 0.500 Neut % (Auto) 73.9 H Lymph % (Auto) 14.[address] % (Auto) 6.9 Eos % (Auto) 4.0 Baso % (Auto) 0.4 Absolute Neuts (auto) 6.2 Absolute Lymphs (auto) 1.20 Nucleated RBC % 0 Sodium 138 Potassium 3.8 Chloride 104 Carbon Dioxide 26.0 Anion Gap 8 BUN 27 H Creatinine 1.38 H Estim Creat Clear Calc 25.74 Est GFR (MDRD) Af Amer 47 L Est GFR (MDRD) Non-Af 39 L BUN/Creatinine Ratio 19.6 Glucose 131 H Calcium 9.0 Urine Color Yellow Urine Clarity Cloudy Urine pH 6.0 Ur Specific [place] 1.010 Urine Protein 15 H Urine Glucose (UA) Normal Urine Ketones Negative Urine Occult Blood 50 H Urine Nitrite Negative Urine Bilirubin Negative Urine Urobilinogen Normal Ur Leukocyte Esterase 500 H Urine RBC 5-10 SEEN Urine WBC 50-100 SEEN Ur Squamous Epith Cells 10-25 SEEN Ur Transition Epith Cell 0 SEEN Urine Bacteria 1+ Urine Mucus 0 SEEN Radiography Diagnostic Testing: Clinical Impression(s) from Imaging Studies Abdomen/Pelvis CT 05/10/23 19:26 IMPRESSION: (NOT LISTED IN ORDER OF SIGNIFICANCE) Since the prior study there has been development of an inferior endplate compression deformity of T12. There are no acute findings. Other findings as above. Electronically Signed: Hiram Branham MD at 20:40 EDT , Treatment and Re-Evaluation :: Patient appears generally well, patient appears nontoxic, vital signs are stable. Presenting to the emergency department with complaints of left lower quadrant abdominal pain for the last week that is getting worse. Patient will receive a full abdominal work-up including CBC, BMP, urinalysis. CT scan of the abdomen pelvis with IV contrast to rule out any diverticulitis, bowel obstruction, colitis, constipation. All radiologic examinations were read, reviewed by the emergency department attending. From these reads, a plan of care will be put in place. Patient's laboratory values show normal CBC, patient's chemistries showed normal electrolytes, BUN was 27, creatinine is 1.38, this is baseline for the patient, 1 month ago it was 1.38 as well, blood glucose 131. Patient on reevaluation appears to be in no distress. Patient did receive a CT scan of the M pelvis without contrast. Currently waiting for the read. CT scan abdomen pelvis with IV contrast shows since the prior study there has been development of inferior endplate compression deformity at T12. There are no acute findings. Other findings as above. Patient has a normal urinary bladder. There is an absent uterus consistent with a prior hysterectomy. 24 mm simple left ovarian cyst. Patient has history of this. Patient at this time wi ll follow-up outpatient. Patient's urinalysis did show bacteria however it was grossly contaminated, this was sent for culture. Patient will follow-up outpatient. At this time there is no evidence of acute diverticulitis, bowel obstruction, perforation, bowel obstruction. Patient stable for discharge I have personally performed a face to face assessment of the patient and have reviewed the NEVILLE Note. I performed a substantive portion of the visit including all aspects of the following. My prabhakar findings include: History is patient with progressively worsening left-sided abdominal pain partic ularly with bending over. She wonders if this could be related to an ovarian cyst. Exam is minimally tender abdomen. There is no guarding or rebound. Afebrile. She appears well and moves easily. Medical Decison Making White count is 8.4. Urine is contaminated but we will send this for culture. She is asymptomatic from urinary standpoint but she states that she gets frequent UTIs. At this point she has no inflammatory changes on her CT. Her white count is normal. She is afebrile. We will have her follow-up if continued symptoms. Discharge Plan Triage Chief Complaint: Abd Pain ED Midlevel Provider: Aayush Howell ED Provider: Sandoval Aguiar Dx/Rx/DC Orders Clinical Impression: Abdominal pain Instructions: Abdominal Pain Prescriptions: No Action amlodipine 5 MG tablet 7.5 mg PO DAILY Patient Comments: ELEVATED BLOOD PRESSURE paroxetine HCl [Paxil] 40 MG tablet 40 mg PO DAILY Patient Comments: DEPRESSION Omeprazole [Prilosec] 40 MG capsule 40 mg PO DAILY Patient Comments: STOMACH/INDIGESTION Ibuprofen [Motrin] 800 MG tablet 800 mg PO TID PRN PRN (Reason: Abdominal Pain) Qty: 60 1RF Patient Comments: PAIN pyridoxine (vitamin B6) [Vitamin B-6] 25 MG tablet 25 mg PO DAILY calcium carbonate 600 MG tablet 600 mg PO DAILY levothyroxine 50 MCG tablet 50 mcg PO DAILY triamcinolone acetonide [Nasacort] 1 SPRAY aerosol,spray 1 spray NS DAILY albuterol sulfate [ProAir HFA] 1 PUFF inhaler 1 puff inhalation DAILY cholecalciferol (vitamin D3) 2,000 UNIT tablet,chewable 2,000 unit PO BID Primary Care Provider: Bell Gaffney Referrals: Bell Gaffney, VIVEK-C [Primary Care Provider] - Activity Restrictions/Additional Instructions: Please follow-up outpatient. Disposition Disposition: Home, Self Care
[2023-05-10 19:55] LABS: Anion Gap 8 (5-15); BUN 27 mg/dL (7-18); BUN/Creat Ratio 19.6 RATIO (10-20); Chloride 104 mmol/L (98-107); Creatinine, Serum 1.38 mg/dL (0.55-1.02); EST Glomerular Filtration Rate 39 mL/min (>60); Est Glom Filt Rate - Afr Amer 47 mL/min (>60); Estimated Creatinine Clearance 25.74 ml/min; Glucose 131 mg/dL (74-106); Potassium 3.8 mmol/L (3.5-5.1); Sodium Level 138 mmol/L (136-145)
[2023-05-10 20:01] LABS: Mucous, Urine 0 SEEN /hpf (<or=2+)
[2023-05-10 20:03] LABS: Color, Urine Yellow (Yellow); Glucose, Dipstick Normal (Normal); Ketone-Dipstick Negative (Negative); Leukocyte Esterase-Dipstick 500 /ul (Negative); Nitrite-Dipstick Negative (Negative); Occult Blood-Urine 50 /ul (Negative); Protein-Dipstick 15 mg/dl (Negative); Urine Bilirubin Dipstick Negative (Negative); Urine Clarity Cloudy (Clear); Urine Urobilinogen Normal (Normal)
[2023-05-10 20:10] LABS: Red Blood Cells-Urine 5-10 SEEN /hpf (0-5); Squamous Epithelial Cells - UA 10-25 SEEN /hpf (5-10); Transitional Epithelial - Ur 0 SEEN /hpf (0-5); White Blood Cells 50-100 SEEN /hpf (0-5)
[2023-05-10 20:11] LABS: Bacteria 1+ /hpf (None Seen)
== END 2023-05-10 21:19 | disposition home or self-care (01) ==
PROVIDERS: Nurse Practitioner; Emergency Provider Emergency Medicine; PCP Nurse Practitioner Family; Visit Provider Emergency Medicine
DX: R10.32 Left lower quadrant pain (principal); E78.5 Hyperlipidemia, unspecified; I10 Essential (primary) hypertension; E03.9 Hypothyroidism, unspecified
CPT/HCPCS: 74177; 80048; 81001; 85025; 87086; 87088; 99282; Q9967; A4216

== ENCOUNTER 2023-05-19 14:03 | Emergency (ER) | payer MEDICARE, SELFPAY ==
[2023-05-19 14:03] VITALS: BP 129/70; PULSE 88; RESP 18; TEMP 35.7; O2SAT 98
--- NOTE | 2023-05-19 14:26 | ED.VIS.BACK ---
HPI History of Present Illness Chief Complaint: Back Detail of Chief Complaint: Increasing low back pain with history of compression fracture T12 and L3 Informant: patient and spouse/S.O. Onset/Context/Timing Onset: Month(s) Context: Gradual Onset Chronic pain exacerbated by: Any type of movement, sitting Injury: other (Significant osteoporosis) Timing: Continuous Quality: Dull and Aching Location: Lumbar Current Severity: Moderate Maximum Severity: Severe Worsened by: improves with Movement, Ambulation, Bending and Lifting Relieved by: Nothing (Patient prefers to stand versus sitting.) Associated Symptoms Associated Symptoms: - (She denies saddle paresthesia or anesthesia. She denies foot drop. She denies buckling of her knees going up or down steps.); Negative for Numbness, Tingling, Radiation to Right Leg, Radiation to Left Leg, Fever, Abdominal Pain, Dysuria, Unable to Ambulate, Unable to Transfer, Urinary Retention, Urinary Incontinence, Constipation or Fecal Incontinence Narrative Narrative: Patient is an 87-year-old woman. She states she had imaging done a couple of years ago. There is no record of any imaging of her back. She did have a recent CAT scan which revealed fracture endplate T12. She reports increasing pain over the past several months. She is presently on tramadol with minimal benefit. She states within 2 hours there is no improvement. She denies fever, chills night sweats. She denies trauma. She denies lifting pushing or pulling anything. She denies near fall. She denies bowel bladder dysfunction. She denies saddle paresthesia or anesthesia. She does not have radicular pain. She denies foot drop. She is able to go up and down steps without her knee buckling. She states she has increased pain. She denies dysuria, frequency, urgency or hematuria. Prior similar symptoms: Yes Recent Illness/Hospitalization: No PFSH PFS Medical History Arthritis Hemorrhoids Hypertension Knee pain Thyroid disease Home Medications Omeprazole [Prilosec] 40 mg PO DAILY 08/23/14 [History Last Taken 12/11/17 08:15 1] amlodipine 5 mg tablet 7.5 mg PO DAILY 08/23/14 [History Last Taken 12/11/17 08:15 1] paroxetine HCl 40 mg tablet (Paxil) 40 mg PO DAILY 08/23/14 [History Last Taken Unknown] Ibuprofen [Motrin] 800 mg PO TID PRN PRN Abdominal Pain #60 tabs 09/26/14 [Rx Last Taken Unknown] albuterol sulfate 90 mcg/actuation aerosol inhaler (ProAir HFA) 1 puff inhalation DAILY 12/04/17 [History Last Taken Unknown] calcium carbonate 600 mg calcium (1,500 mg) tablet 600 mg PO DAILY 12/04/17 [History Last Taken Unknown] cholecalciferol (vitamin D3) 50 mcg (2,000 unit) chewable tablet 2,000 unit PO BID 12/04/17 [History Last Taken Unknown] levothyroxine 50 mcg tablet 50 mcg PO DAILY 12/04/17 [History Last Taken 12/11/17 08:15 1] pyridoxine (vitamin B6) 25 mg tablet (Vitamin B-6) 25 mg PO DAILY 12/04/17 [History Last Taken Unknown] triamcinolone acetonide 55 mcg nasal spray aerosol (Nasacort) 1 spray NS DAILY 12/04/17 [History Last Taken Unknown] calcitonin (salmon) 200 unit/actuation nasal spray 1 spray intranasal (ALT) DAILY #3.7 mL 05/19/23 [Rx Last Taken Unknown] oxycodone-acetaminophen 5 mg-325 mg tablet 1 tab PO Q6H PRN PRN pain 5 days #20 TABLETS 05/19/23 [Rx Last Taken Unknown] Allergy/AdvReac Type Severity Reaction Status Date / Time Sulfa (Sulfonamide Allergy Rash Verified 05/19/23 14:03 Antibiotics) belladonna alkaloids AdvReac Other Verified 05/19/23 14:03 Social History (Updated 05/19/23 @ 14:[address] Darron Ceron MD) household members: spouse Smoking Status: Never smoker substance use type: does not use ROS ROS ED Constitutional Constitutional ED: Denies chills, fever(s), subjective or sweats Eyes Eyes: Denies blurry vision, change in vision or diplopia ENT ENT ED: Denies ear pain, rhinorrhea or sore throat Cardiovascular Cardiovascular: Denies chest pain, palpitations or paroxysmal nocturnal dyspnea Respiratory/Chest Respiratory/Chest: Denies dyspnea, dyspnea on exertion or paroxysmal nocturnal dyspnea Gastrointestinal Gastrointestinal: Denies abdominal pain, nausea or vomiting Genitourinary Genitourinary ED: Denies dysuria, hematuria or urinary frequency Musculoskeletal Musculoskeletal: Reports back pain; Denies arthralgias, myalgias or neck pain Integumentary Denies rash Neurologic Neurologic: Reports paresthesias and other Details: Patient points an area paresthesia superior to the right knee on the lateral side. ; Denies headache(s) or weakness Psychiatric Psychiatric: Denies anxiety or depression Hematologic/Lymphatic Hematologic/Lymphatic: Denies easy bleeding or easy bruising EXAM Physical Exam Const Vital Signs: 05/19/23 14:03 Temperature 96.3 F L Temperature Source Temporal Pulse Rate 88 Respiratory Rate 18 Blood Pressure 129/70 H Blood Pressure Mean 89 Pulse Ox 98 Oxygen Delivery Method Room Air Positive well nourished and well developed General Appearance ED: well developed; Negative for NAD HEENT Reports moist mucous membranes HEENT Narrative: Head is atraumatic and normocephalic. Ears are normal. Nares are patent. Posterior is normal. 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 ; Negative for pale conjunctiva or scleral icterus Neck no lymphadenopathy, supple and no JVD Resp normal respiratory effort and clear to auscultation bilaterally Cardio regular rate, regular rhythm, S1 normal heart sound, S2 normal heart sound and no murmurs GI normal to inspection, nondistended, normoactive bowel sounds, soft to palpation, non-tender, non-distended and no masses GI Narrative: There is no palpable pulse with mass. There is no abdominal bruit. Back/Spine normal to inspection and no thoracic nor lumbar tenderness Back/Spine Narrative: Alert and ankle reflex are 2+ and symmetric. EHLs intact. Gait was observed with no foot drop. She is able to walk on heels and toes. She is able to perform a 1 legged squat right and left. She has normal sensation over L3-S1 dermatome. EHL is intact bilaterally. DP and PT pulse are palpable. There is no stigmata of peripheral vascular disease. Movement does exacerbate her pain. Lumbar Spine / Lower Back: ROM limited and straight leg raise negative bilaterally Extremity normal to inspection and no clubbing, cyanosis or edema Neuro oriented x3 and no sensory deficits noted Sensorium / Orientation: alert Motor Exam: strength 5/5 throughout Deep Tendon Reflexes: Rt Patellar (L4): 2+, Lt Patellar (L4): 2+, Rt Ankle (S1): 2+ and Lt Ankle (S1): 2+ Deep Tendon Reflexes Back: Rt Patellar (L4): 2+, Lt Patellar (L4): 2+, Rt Ankle (S1): 2+ and Lt Ankle (S1): 2+ Plantar Reflex: Downgoing: bilateral Psych mental status grossly normal Skin no rashes or lesions noted and no wounds MDM MDM MDM Narrative Medical decision making narrative: With history of osteoporosis and known compression fractures and reportedly no imaging for 2 to 3 years we will obtain x-ray of the LS-spine. Patient was medicated with 3 mg of morphine and given 4 mg of Zofran to prevent nausea vomiting. Prior records were reviewed. Of note she did have a recent CT of the abdomen a couple of months ago which revealed a T12 endplate abnormality/fracture. She has an appointment with Dr. Andrade in pain management this coming week. Radiography Chest X-Ray - ED: 2 View and Read by ED Physician (There is total loss of height of the T12 vertebrae. This is new from most recent CT. There is also abnormality of the endplate of L4 noted. There appears to be a kidney stone on the right. There is nonseptic gas pattern noted on the abdominal portion. There is also evidence of atherosclerotic h) Diagnostic Testing: Clinical Impression(s) from Imaging Studies Lumbar Spine X-Ray 05/19/23 14:50 IMPRESSION: Degenerative changes of the spine, as detailed above. A most complete collapse of the T12 vertebral body. Loss of height of the superior endplate of the L4 vertebra. Electronically Signed: Justen Norton MD at 15:06 EDT , Treatment and Re-Evaluation Narrative: Patient was reassessed at 1542. She was informed of her x-ray results. She states she had significant improvement of her pain. Plan is to discharge to home with prescription for hydrocodone with acetaminophen. She was instructed to keep her appointment with Dr. Strickland. She was told if she develops weakness in her legs, problems with bowels or urination she is to return immediately. Discharge Plan Triage Chief Complaint: Back ED Provider: Darron Ceron Dx/Rx/DC Orders Clinical Impression: Closed wedge compression fracture of T12 vertebra, Nontraumatic compression fracture of L4 vertebra Instructions: ED Fracture, Vertebral Compression Prescriptions: New oxycodone-acetaminophen [oxycodone-acetaminophen] 5-325 mg tablet 1 tab PO Q6H PRN PRN (Reason: pain) 5 Days Qty: 20 0RF calcitonin (salmon) 200 unit/actuation spray,non-aerosol 1 spray intranasal (ALT) DAILY Qty: 3.7 0RF No Action amlodipine 5 MG tablet 7.5 mg PO DAILY Patient Comments: ELEVATED BLOOD PRESSURE paroxetine HCl [Paxil] 40 MG tablet 40 mg PO DAILY Patient Comments: DEPRESSION Omeprazole [Prilosec] 40 MG capsule 40 mg PO DAILY Patient Comments: STOMACH/INDIGESTION Ibuprofen [Motrin] 800 MG tablet 800 mg PO TID PRN PRN (Reason: Abdominal Pain) Qty: 60 1RF Patient Comments: PAIN pyridoxine (vitamin B6) [Vitamin B-6] 25 MG tablet 25 mg PO DAILY calcium carbonate 600 MG tablet 600 mg PO DAILY levothyroxine 50 MCG tablet 50 mcg PO DAILY triamcinolone acetonide [Nasacort] 1 SPRAY aerosol,spray 1 spray NS DAILY albuterol sulfate [ProAir HFA] 1 PUFF inhaler 1 puff inhalation DAILY cholecalciferol (vitamin D3) 2,000 UNIT tablet,chewable 2,000 unit PO BID Primary Care Provider: Bell Gaffney Referrals: Koby Strickland MD [Med Staff - Active Staff] - Keep [place] appointment Bell Gaffney [employer] CONSULTANT-C [Primary Care Provider] - Disposition Disposition: Home, Self Care
[2023-05-19] MEDS: Ondansetron 4 MG/2 ML Vial IV (14:29)
[2023-05-19] MEDS: Morphine 4 MG/ML Syringe 3 MG IV (14:29)
--- NOTE | 2023-05-19 14:50 | RAD_ITS ---
STUDY: X-RAY - LUMBAR SPINE REASON FOR EXAM: Female, 87 years old. Injury/Pain TECHNIQUE: 2 view(s) of the lumbar spine were obtained. COMPARISON: None FINDINGS: Normal lumbar lordosis. There is a mild dextroscoliosis of the lumbar spine. There is a normal alignment of the vertebrae. Almost complete collapse of the T12 vertebrae. Loss of height of the L4 vertebrae. There is multi-level degenerative disc disease with multi-level disc space narrowing. There is atherosclerotic calcification of the abdominal aorta without a demonstrated aneurysm. 1.4 cm x 1.4 sono rounded calcific density in the mid lower right side of the abdomen. This may represent a calcified mesenteric node. The patient is status post cholecystectomy. RAD/Lumbar Spine 2 or 3 Views IMPRESSION: Degenerative changes of the spine, as detailed above. A most complete collapse of the T12 vertebral body. Loss of height of the superior endplate of the L4 vertebra. Electronically Signed: Justen Norton MD at 15:06 EDT ,
== END 2023-05-19 16:04 | disposition home or self-care (01) ==
PROVIDERS: Emergency Provider Emergency Medicine; PCP Nurse Practitioner Family; Visit Provider Emergency Medicine
DX: M48.54XA Collapsed vertebra, not elsewhere classified, thoracic region, initial encounter for fracture (principal); M48.56XA Collapsed vertebra, not elsewhere classified, lumbar region, initial encounter for fracture; I10 Essential (primary) hypertension; G89.29 Other chronic pain; X58.XXXA Exposure to other specified factors, initial encounter
CPT/HCPCS: 72100; 96374; 96375; 99282; J2405

== ENCOUNTER 2023-05-22 13:18 | Emergency (ER) | payer MEDICARE, SELFPAY ==
[2023-05-22 13:21] VITALS: BP 152/70; PULSE 92; RESP 18; TEMP 36.6; O2SAT 97; BMI 26.9
--- NOTE | 2023-05-22 14:36 | ED.VIS.BACK ---
HPI History of Present Illness Chief Complaint: Back Detail of Chief Complaint: Back pain Informant: patient Narrative Narrative: Patient presents to the emergency department with complaint of back pain that she has had for approximately 3 weeks. She denies injury. Patient was seen in the emergency department 2 days ago and had x-rays of her back that showed a T12 compression fracture. She has history of osteoporosis. Patient was written for hydrocodone which is helping her pain but not taken away her pain. She denies any pain rating down the legs or weakness in extremities. She denies change in bowel or bladder function. Patient has appointment with pain management in 4 days. Patient was not sure if she can get through the weekend with the amount of blood on that she was prescribed. She denies any new falls or injuries. [facility] Medical History Arthritis Hemorrhoids Hypertension Knee pain Thyroid disease Home Medications Omeprazole [Prilosec] 40 mg PO DAILY 08/23/14 [History Last Taken 12/11/17 08:15 1] amlodipine 5 mg tablet 7.5 mg PO DAILY 08/23/14 [History Last Taken 12/11/17 08:15 1] paroxetine HCl 40 mg tablet (Paxil) 40 mg PO DAILY 08/23/14 [History Last Taken Unknown] Ibuprofen [Motrin] 800 mg PO TID PRN PRN Abdominal Pain #60 tabs 09/26/14 [Rx Last Taken Unknown] albuterol sulfate 90 mcg/actuation aerosol inhaler (ProAir HFA) 1 puff inhalation DAILY 12/04/17 [History Last Taken Unknown] calcium carbonate 600 mg calcium (1,500 mg) tablet 600 mg PO DAILY 12/04/17 [History Last Taken Unknown] cholecalciferol (vitamin D3) 50 mcg (2,000 unit) chewable tablet 2,000 unit PO BID 12/04/17 [History Last Taken Unknown] levothyroxine 50 mcg tablet 50 mcg PO DAILY 12/04/17 [History Last Taken 12/11/17 08:15 1] pyridoxine (vitamin B6) 25 mg tablet (Vitamin B-6) 25 mg PO DAILY 12/04/17 [History Last Taken Unknown] triamcinolone acetonide 55 mcg nasal spray aerosol (Nasacort) 1 spray NS DAILY 12/04/17 [History Last Taken Unknown] calcitonin (salmon) 200 unit/actuation nasal spray 1 spray intranasal (ALT) DAILY #3.7 mL 05/19/23 [Rx Last Taken Unknown] oxycodone-acetaminophen 5 mg-325 mg tablet 1 tab PO Q6H PRN PRN pain 5 days #20 TABLETS 05/19/23 [Rx Last Taken Unknown] oxycodone 5 mg tablet 5 mg PO Q4H PRN pain 3 days #14 tabs 05/22/23 [Rx Last Taken Unknown] Allergy/AdvReac Type Severity Reaction Status Date / Time Sulfa (Sulfonamide Allergy Rash Verified 05/22/23 13:20 Antibiotics) belladonna alkaloids AdvReac Other Verified 05/22/23 13:20 Social History (Updated 05/19/23 @ 14:[address] Darron Ceron MD) household members: spouse Smoking Status: Never smoker substance use type: does not use ROS ROS ED Review of Systems ROS Unobtainable: other Constitutional Constitutional ED: Reports lethargy; Denies chills, fever(s), sweats or weight loss Eyes Eyes: Denies blurry vision, change in vision or diplopia ENT ENT ED: Denies rhinorrhea or sore throat Cardiovascular Cardiovascular: Denies chest pain, orthopnea or racing heartbeat Respiratory/Chest Respiratory/Chest: Denies cough, dyspnea, dyspnea on exertion, orthopnea or sputum Gastrointestinal Gastrointestinal: Denies abdominal pain, diarrhea, nausea or vomiting Genitourinary Genitourinary ED: Denies dysuria, hematuria or urinary frequency Musculoskeletal Musculoskeletal: Reports back pain; Denies arthralgias, myalgias or neck pain Integumentary Denies abscess, Abrasions or rash Neurologic Neurologic: Denies headache(s) or weakness Psychiatric Psychiatric: Denies anxiety, depression or suicidal thoughts Endocrine Endocrinology: Denies polydipsia, polyphagia or polyuria Hematologic/Lymphatic Hematologic/Lymphatic: Denies easy bleeding, easy bruising or lymphadenopathy Allergic/Immunologic Allergic/Immunologic ED: Denies mouth swelling, tongue swelling or urticaria EXAM Physical Exam Const Vital Signs: 05/22/23 13:21 Temperature 97.8 F Temperature Source Temporal Pulse Rate 92 Respiratory Rate 18 Blood Pressure 152/70 H Blood Pressure Mean 97 Pulse Ox 97 Oxygen Delivery Method Room Air Positive well nourished and well developed General Appearance ED: well developed and NAD HEENT Reports TM's clear and moist mucous membranes normocephalic and atraumatic; Negative for trauma or tenderness Tympanic Membrane ED: Yes TM's clear Eyes PERRL and EOMs intact bilaterally General Eye ED: Negative for pale conjunctiva or scleral icterus Neck no lymphadenopathy, supple and no JVD General: Negative for tenderness Chest Wall inspection of chest normal and palpation of chest normal Chest: Negative for tenderness Resp normal respiratory effort and clear to auscultation bilaterally Effort and Inspection: Negative for respiratory distress or pain with movement Auscultation: Negative for rhonchi, wheezes or diminished lung sounds Cardio regular rate, regular rhythm, S1 normal heart sound, S2 normal heart sound and no murmurs Peripheral Pulses: pulses 2+ throughout GI normal to inspection, nondistended, normoactive bowel sounds, soft to palpation, non-tender, non-distended and no masses Back/Spine no CVA tenderness Back/Spine Narrative: To palpation over the T12 region that reproduces her pain. She has negative straight leg raises. Deep tendon reflexes +2/4 bilaterally at the patella and Achilles. Patient has normal extension. Normal sensation to light touch. Extremity normal to inspection General Extremety ED: Negative for edema General Extremity: Negative for edema Neuro oriented x3, CN's II-XII intact bilaterally, no sensory deficits noted and gait normal Sensorium / Orientation: awake, alert, oriented to person, oriented to place and oriented to time Motor Exam: strength 5/5 throughout and strength abnormal Psych mental status grossly normal Skin no rashes or lesions noted and no wounds MDM MDM MDM Narrative Medical decision making narrative: Presents with severe back pain related to T12 compression fracture. She is awaiting evaluation by pain management in 4 days. I will start her on a Duragesic patch and she can use the oxycodone for breakthrough pain. Patient advised to take a daily stool softener. There are no red flag symptoms of cauda equina. Discharge Plan Triage Chief Complaint: Back ED Provider: Mc Grubbs Dx/Rx/DC Orders Clinical Impression: Compression fracture, Back pain Instructions: Compression Fx, ED Back Pain (Acute or Chronic) Prescriptions: New oxycodone 5 mg tablet 5 mg PO Q4H PRN (Reason: pain) 3 Days Qty: 14 0RF Rx Instructions: as needed for pain No Action amlodipine 5 MG tablet 7.5 mg PO DAILY Patient Comments: ELEVATED BLOOD PRESSURE paroxetine HCl [Paxil] 40 MG tablet 40 mg PO DAILY Patient Comments: DEPRESSION Omeprazole [Prilosec] 40 MG capsule 40 mg PO DAILY Patient Comments: STOMACH/INDIGESTION Ibuprofen [Motrin] 800 MG tablet 800 mg PO TID PRN PRN (Reason: Abdominal Pain) Qty: 60 1RF Patient Comments: PAIN pyridoxine (vitamin B6) [Vitamin B-6] 25 MG tablet 25 mg PO DAILY calcium carbonate 600 MG tablet 600 mg PO DAILY levothyroxine 50 MCG tablet 50 mcg PO DAILY triamcinolone acetonide [Nasacort] 1 SPRAY aerosol,spray 1 spray NS DAILY albuterol sulfate [ProAir HFA] 1 PUFF inhaler 1 puff inhalation DAILY cholecalciferol (vitamin D3) 2,000 UNIT tablet,chewable 2,000 unit PO BID oxycodone-acetaminophen [oxycodone-acetaminophen] 5-325 mg tablet 1 tab PO Q6H PRN PRN (Reason: pain) 5 Days Qty: 20 0RF calcitonin (salmon) 200 unit/actuation spray,non-aerosol 1 spray intranasal (ALT) DAILY Qty: 3.7 0RF Primary Care Provider: Bell Gaffney Referrals: Koby Strickland MD [Med Staff - Active Staff] - 3-5 Days Bell Gaffney NP-C [Primary Care Provider] - Disposition Disposition: Home, Self Care Discharge Date/Time: 05/22/23 15:34
[2023-05-22] MEDS: fentaNYL 25 MCG Patch TD (15:29)
== END 2023-05-22 15:34 | disposition home or self-care (01) ==
PROVIDERS: Emergency Provider Emergency Medicine; PCP Nurse Practitioner Family; Visit Provider Emergency Medicine
DX: M80.08XA Age-related osteoporosis with current pathological fracture, vertebra(e), initial encounter for fracture (principal); I10 Essential (primary) hypertension
CPT/HCPCS: 99283

== ENCOUNTER 2023-05-27 16:31 | Observation (INO) | payer MEDICARE, SELFPAY ==
[2023-05-27 16:32] VITALS: BP 136/78; PULSE 114; RESP 19; TEMP 36.4; O2SAT 97
--- NOTE | 2023-05-27 17:57 | ED.VIS.BACK ---
HPI History of Present Illness Chief Complaint: Back Informant: patient, spouse/S.O. and other (Pain management physician) Onset/Context/Timing Onset: Weeks Narrative Narrative: Patient presents secondary to worsened low back pain. She states she has had some mild back pain throughout the summer but became exquisitely worse 3 weeks ago. Patient has been in the ER several times and saw pain management earlier this week. She is currently on oxycodone as well as low-dose tizanidine. X-rays and imaging studies have shown a T12 compression fracture. However, her pain seems to be lower around the L4 area. On prior studies she had a 50% loss of height of L4. Pain management called her back today when she had called about increasing pain but she was already in the waiting room in the emergency room. Pain management physician presented to the ER to evaluate the patient. He believes patient likely will need admission for pain control and a lumbar spine MRI. If this confirms compression fracture as he believes plan would be for kyphoplasty. [facility] Medical History Arthritis Hemorrhoids Hypertension Knee pain Thyroid disease Home Medications Omeprazole [Prilosec] 40 mg PO DAILY 08/23/14 [History Last Taken 12/11/17 08:15 1] amlodipine 5 mg tablet 5 mg PO DAILY 08/23/14 [History Last Taken 05/27/23] paroxetine HCl 40 mg tablet (Paxil) 40 mg PO DAILY 08/23/14 [History Last Taken Unknown] albuterol sulfate 90 mcg/actuation aerosol inhaler (ProAir HFA) 1 puff inhalation DAILY 12/04/17 [History Last Taken Unknown] calcium carbonate 600 mg calcium (1,500 mg) tablet 600 mg PO DAILY 12/04/17 [History Last Taken Unknown] cholecalciferol (vitamin D3) 50 mcg (2,000 unit) chewable tablet 2,000 unit PO BID 12/04/17 [History Last Taken Unknown] levothyroxine 50 mcg tablet 50 mcg PO DAILY 12/04/17 [History Last Taken 12/11/17 08:15 1] pyridoxine (vitamin B6) 25 mg tablet (Vitamin B-6) 25 mg PO DAILY 12/04/17 [History Last Taken Unknown] triamcinolone acetonide 55 mcg nasal spray aerosol (Nasacort) 1 spray NS DAILY 12/04/17 [History Last Taken Unknown] calcitonin (salmon) 200 unit/actuation nasal spray 1 spray intranasal (ALT) DAILY #3.7 mL 05/19/23 [Rx Last Taken Unknown] oxycodone-acetaminophen 5 mg-325 mg tablet 1 tab PO Q6H PRN PRN pain 5 days #20 TABLETS 05/19/23 [Rx Last Taken Unknown] ascorbic acid (vitamin C) 500 mg tablet (Vitamin C) 1 g PO DAILY 05/27/23 [History Last Taken Unknown] hydrochlorothiazide 12.5 mg capsule 12.5 mg PO DAILY 05/27/23 [History Last Taken Unknown] losartan 25 mg tablet 25 mg PO DAILY 05/27/23 [History Last Taken Unknown] methenamine hippurate 1 gram tablet 1 g PO DAILY PRN prevent uti 05/27/23 [History Last Taken Unknown] oxycodone 5 mg tablet 5 mg PO Q6H pain 05/27/23 [History Last Taken Unknown] rosuvastatin 5 mg tablet 5 mg PO QODAY 05/27/23 [History Last Taken Unknown] tizanidine 2 mg tablet 1 mg PO QHS 05/27/23 [History Last Taken Unknown] Allergy/AdvReac Type Severity Reaction Status Date / Time Sulfa (Sulfonamide Allergy Rash Verified 05/27/23 16:32 Antibiotics) belladonna alkaloids AdvReac Other Verified 05/27/23 16:32 Social History household members: spouse Smoking Status: Never smoker substance use type: does not use ROS ROS ED Constitutional Constitutional ED: Denies chills or fever(s) Eyes Eyes: Denies discharge from eye(s) ENT ENT ED: Denies discharge from eye(s), rhinorrhea or sore throat Cardiovascular Cardiovascular: Denies chest pain or palpitations Respiratory/Chest Respiratory/Chest: Denies cough or dyspnea Gastrointestinal Gastrointestinal: Denies abdominal pain, nausea or vomiting Genitourinary Genitourinary ED: Denies dysuria Musculoskeletal Musculoskeletal: Reports back pain Integumentary Denies Abrasions or rash Neurologic Neurologic: Denies headache(s) or weakness Psychiatric Psychiatric: Denies anxiety or depression Endocrine Endocrinology: Denies polydipsia or polyuria Allergic/Immunologic Allergic/Immunologic ED: Denies lip swelling or urticaria EXAM Physical Exam Const Vital Signs: 05/27/23 16:32 05/27/23 18:54 05/27/23 19:49 Temperature 97.6 F L Temperature Source Temporal Pulse Rate 114 H 82 70 Respiratory Rate 19 H 16 15 Blood Pressure 136/78 H 157/90 H 134/71 H Blood Pressure Mean 97 112 92 Pulse Ox 97 95 93 Oxygen Delivery Method Room Air Room Air Room Air Positive well nourished and well developed General Appearance ED: well developed HEENT Reports moist mucous membranes Eyes EOMs intact bilaterally Resp normal respiratory effort and clear to auscultation bilaterally Cardio regular rate and regular rhythm GI soft to palpation and non-tender Back/Spine Back/Spine Narrative: Tenderness of the low lumbar spine. Extremity normal to inspection Neuro oriented x3 Neuro Narrative: Good sensation noted to the bilateral lower extremities. Good distal pulses. No focal neurodeficits. Skin no rashes or lesions noted MDM MDM MDM Narrative Medical decision making narrative: Lab work we obtained to evaluate for leukocytosis, anemia, electrolyte derangement. Lumbar spine x-rays obtained to ensure no new change when compared to prior studies from a week ago. History & Record Review Additional record(s) reviewed:: Prior ED visit and Prior labs Lab Data Attestation: I reviewed the patient's lab results. Labs: Laboratory Results - last 24 hr 05/27/23 05/27/23 18:05 19:30 WBC 12.3 H RBC 4.58 Hgb 13.3 Hct 40.6 MCV 88.6 MCH 29.0 MCHC 32.8 RDW Std Deviation 41.5 RDW Coeff of Paula 12.9 Plt Count 261 MPV 9.4 Immature Gran % (Auto) 0.300 Neut % (Auto) 83.8 H Lymph % (Auto) 7.7 L [place] % (Auto) 7.2 Eos % (Auto) 0.7 Baso % (Auto) 0.3 Absolute Neuts (auto) 10.3 H Absolute Lymphs (auto) 0.95 Nucleated RBC % 0 Sodium 136 Potassium 3.6 Chloride 104 Carbon Dioxide 26.0 Anion Gap 6 BUN 21 H Creatinine 1.09 H Est GFR (MDRD) Af Amer 61 Est GFR (MDRD) Non-Af 51 L BUN/Creatinine Ratio 19.3 Glucose 106 Calcium 9.5 Urine Color Yellow Urine Clarity Clear Urine pH 6.5 Ur Specific [place] 1.015 Urine Protein 30 H Urine Glucose (UA) Normal Urine Ketones 150 A* Urine Occult Blood 50 H Urine Nitrite Negative Urine Bilirubin Negative Urine Urobilinogen Normal Ur Leukocyte Esterase 100 H Urine RBC 0-5 SEEN Urine WBC 5-10 SEEN Ur Squamous Epith Cells 0-5 SEEN Urine Bacteria 0 SEEN Urine Mucus 0 SEEN Radiography Diagnostic Testing: Clinical Impression(s) from Imaging Studies Lumbar Spine X-Ray 05/27/23 18:45 IMPRESSION: Stable T12 and L4 compression fractures. Degenerative change. Electronically Signed: Phillip Granado MD at 19:15 EDT , Treatment and Re-Evaluation Narrative: CBC was a white count of 12.3 with 84% neutrophils. Hemoglobin is 13.3. Chemistry studies are unremarkable. Urinalysis reveals 5-10 white cells with 0 bacteria and no nitrites. She does have 150 ketones. Lumbar spine x-rays per my interpretation no chronic changes with compression noted at T12 and L4. No significant change when compared to prior study. Radiology interpretation is reviewed and agrees. Patient did receive a dose of morphine and Zofran here for pain. I will speak with hospitalist regarding admission for pain control and lumbar spine MRI as planned with pain management. Discharge Plan Triage Chief Complaint: Back ED Provider: Mary Ellen Rojas Dx/Rx/DC Orders Clinical Impression: Compression fracture, Intractable back pain Prescriptions: No Action amlodipine 5 MG tablet 5 mg PO DAILY Patient Comments: ELEVATED BLOOD PRESSURE paroxetine HCl [Paxil] 40 MG tablet 40 mg PO DAILY Patient Comments: DEPRESSION Omeprazole [Prilosec] 40 MG capsule 40 mg PO DAILY Patient Comments: STOMACH/INDIGESTION pyridoxine (vitamin B6) [Vitamin B-6] 25 MG tablet 25 mg PO DAILY calcium carbonate 600 MG tablet 600 mg PO DAILY levothyroxine 50 MCG tablet 50 mcg PO DAILY triamcinolone acetonide [Nasacort] 1 SPRAY aerosol,spray 1 spray NS DAILY albuterol sulfate [ProAir HFA] 1 PUFF inhaler 1 puff inhalation DAILY cholecalciferol (vitamin D3) 2,000 UNIT tablet,chewable 2,000 unit PO BID oxycodone-acetaminophen [oxycodone-acetaminophen] 5-325 mg tablet 1 tab PO Q6H PRN PRN (Reason: pain) 5 Days Qty: 20 0RF calcitonin (salmon) 200 unit/actuation spray,non-aerosol 1 spray intranasal (ALT) DAILY Qty: 3.7 0RF hydrochlorothiazide 12.5 mg capsule 12.5 mg PO DAILY losartan 25 mg tablet 25 mg PO DAILY methenamine hippurate 1 gram tablet 1 g PO DAILY PRN rosuvastatin 5 mg tablet 5 mg PO QODAY tizanidine 2 mg tablet 1 mg PO QHS ascorbic acid (vitamin C) [Vitamin C] 500 mg tablet 1 g PO DAILY oxycodone 5 mg tablet 5 mg PO Q6H Rx Instructions: as needed for pain Primary Care Provider: Bell Gaffney Referrals: Bell Gaffney, [employer]-C [Primary Care Provider] - Disposition Disposition: Acute Care [facility]
[2023-05-27 18:12] LABS: Absolute Lymphocyte Count 0.95 X10^3/uL (0.83-4.51); Absolute Neutrophil Count 10.3 X10^3/uL (2.0-7.7); Basophil# 0.04 X10^3/uL; Basophil% 0.3 % (0-1); Eosinophil# 0.08 X10^3/uL; Eosinophils% 0.7 % (0-5); Hematocrit 40.6 % (37-47); Hemoglobin 13.3 g/dL (12.0-15.0); Lymphocyte # 0.95 X10^3/ul (0.83-4.51); Lymphocyte % 7.7 % (19-41); Mean Corp Hgb Conc 32.8 g/dL (32-36); Mean Corpuscular Volume 88.6 fL (81-99); Mean Platelet Vol. 9.4 fl (6.2-12.0); Monocyte# 0.88 X10^3/uL; Monocyte% 7.2 % (0-10); NRBC Flagged by Analyzer 0 % (0-5); Neutrophil # 10.28 X10^3/uL (2.7-7.7); Neutrophil % 83.8 % (47-70); Platelet Count 261 K/mm3 (150-450); RBC Distribution Width CV 12.9 % (11.6-14.6); RBC Distribution Width SD 41.5 fl (35.1-43.9); Red Blood Count 4.58 M/mm3 (4.2-5.4); White Blood Count 12.3 K/mm3 (4.4-11.0)
[2023-05-27 18:32] LABS: Anion Gap 6 (5-15); BUN 21 mg/dL (7-18); BUN/Creat Ratio 19.3 RATIO (10-20); Calcium,Total 9.5 mg/dL (8.5-10.1); Chloride 104 mmol/L (98-107); Creatinine, Serum 1.09 mg/dL (0.55-1.02); EST Glomerular Filtration Rate 51 mL/min (>60); Est Glom Filt Rate - Afr Amer 61 mL/min (>60); Glucose 106 mg/dL (74-106); Potassium 3.6 mmol/L (3.5-5.1); Sodium Level 136 mmol/L (136-145)
--- NOTE | 2023-05-27 18:45 | RAD_ITS ---
STUDY: X-RAY - LUMBAR SPINE REASON FOR EXAM: Female, 87 years old. Pain TECHNIQUE: 2 view(s) of the lumbar spine were obtained. COMPARISON: May 19, 2023 FINDINGS: Normal lumbar lordosis. There is no substantial scoliosis. There is a normal alignment of the vertebrae. There is generalized demineralization of the vertebral bodies. There is stable T12 compression fracture with 90% loss of height. There is stable L4 compression fracture with 30% loss of height. There are degenerative changes at L4-5. There is facet spurring of the lower lumbar spine. There are surgical clips in the right upper abdomen. RAD/Lumbar Spine 2 or 3 Views IMPRESSION: Stable T12 and L4 compression fractures. Degenerative change. Electronically Signed: Phillip Granado MD at 19:15 EDT ,
[2023-05-27 18:54] VITALS: BP 157/90; PULSE 82; RESP 16; O2SAT 95
[2023-05-27] MEDS: Morphine 4 MG/ML Syringe IV (19:21)
[2023-05-27] MEDS: Ondansetron 4 MG/2 ML Vial IV (19:21)
[2023-05-27 19:36] LABS: Bacteria 0 SEEN /hpf (None Seen); Mucous, Urine 0 SEEN /hpf (<or=2+)
[2023-05-27 19:47] LABS: Color, Urine Yellow (Yellow); Glucose, Dipstick Normal (Normal); Leukocyte Esterase-Dipstick 100 /ul (Negative); Nitrite-Dipstick Negative (Negative); Occult Blood-Urine 50 /ul (Negative); Protein-Dipstick 30 mg/dl (Negative); Specific Gravity, Urine 1.015 (1.002-1.030); Urine Bilirubin Dipstick Negative (Negative); Urine Clarity Clear (Clear); Urine Urobilinogen Normal (Normal); Urine pH 6.5 (5.0 - 8.0)
[2023-05-27 19:49] VITALS: BP 134/71; PULSE 70; RESP 15; O2SAT 93
[2023-05-27 19:53] LABS: Ketone-Dipstick 150 mg/dl (Negative)
[2023-05-27 20:00] LABS: Red Blood Cells-Urine 0-5 SEEN /hpf (0-5); Squamous Epithelial Cells - UA 0-5 SEEN /hpf (5-10); White Blood Cells 5-10 SEEN /hpf (0-5)
[2023-05-27 20:49] VITALS: BP 121/79; PULSE 69; RESP 15; O2SAT 98
--- NOTE | 2023-05-27 21:25 | PCM.HP.STD ---
HPI - General General Date of Admission: 05/27/23 Date of Service: 05/27/23 Chief Complaint: Lower back pain HPI Narrative LINDSAY SALDIVAR, is a 87 F with a significant history of chronic back pain presents emergency department progressively worsening lower back pain above his baseline started 3 weeks ago. Of note patient has a known L4 and T12 compression fracture. Because of severely worsening back pain patient saw pain management 2 days before presentation and he was put on a new pain regimen. She described the pain as sharp. Also she has muscle spasms at her back. Pain radiates to her lower back and at times into her bilateral legs. Because of pain she is unable to walk. That is her pain worsens with walking. Previously at rest pain was improved but now the pain is not improved with rest. Patient/family called pain management to let pain management know of her increasing pain. When pain management called back patient was at the ED already. Patient was seen at the ED by pain management briefly. Per pain management doctor patient should be admitted and an MRI of her lower back done. Patient reported the last time her bowels moved was on the same day of presentation and that was with MiraLAX. Patient denies any urinary symptoms. [facility] Medical History Arthritis Hemorrhoids Hypertension Knee pain Osteoporosis Thyroid disease Home Medications Omeprazole [Prilosec] 40 mg PO DAILY 08/23/14 [History Last Taken 05/27/23] amlodipine 5 mg tablet 5 mg PO DAILY 08/23/14 [History Last Taken 05/27/23] paroxetine HCl 40 mg tablet (Paxil) 40 mg PO DAILY 08/23/14 [History Last Taken 05/27/23] albuterol sulfate 90 mcg/actuation aerosol inhaler (ProAir HFA) 1 puff inhalation DAILY PRN sob 12/04/17 [History Last Taken 05/21/23] calcium carbonate 600 mg calcium (1,500 mg) tablet 600 mg PO DAILY 12/04/17 [History Last Taken 05/27/23] cholecalciferol (vitamin D3) 50 mcg (2,000 unit) chewable tablet 2,000 unit PO BID 12/04/17 [History Last Taken 05/27/23] levothyroxine 50 mcg tablet 50 mcg PO DAILY 12/04/17 [History Last Taken 05/27/23] pyridoxine (vitamin B6) 25 mg tablet (Vitamin B-6) 25 mg PO DAILY 12/04/17 [History Last Taken Unknown] triamcinolone acetonide 55 mcg nasal spray aerosol (Nasacort) 1 spray NS DAILY 12/04/17 [History Last Taken Unknown] oxycodone-acetaminophen 5 mg-325 mg tablet 1 tab PO Q6H PRN PRN pain 5 days #20 TABLETS 05/19/23 [Rx Last Taken Unknown] ascorbic acid (vitamin C) 500 mg tablet (Vitamin C) 1 g PO DAILY 05/27/23 [History Last Taken 05/27/23] calcitonin (salmon) 200 unit/actuation nasal spray 1 spray intranasal (ALT) DAILY PRN see md 05/27/23 [History Last Taken Unknown] hydrochlorothiazide 12.5 mg capsule 12.5 mg PO DAILY 05/27/23 [History Last Taken 05/27/23] losartan 25 mg tablet 25 mg PO DAILY 05/27/23 [History Last Taken 05/27/23] methenamine hippurate 1 gram tablet 1 g PO DAILY PRN prevent uti 05/27/23 [History Last Taken 05/27/23] oxycodone 5 mg tablet 5 mg PO Q6H pain 05/27/23 [History Last Taken 05/27/23] rosuvastatin 5 mg tablet 5 mg PO QODAY 05/27/23 [History Last Taken Unknown] tizanidine 2 mg tablet 1 mg PO QHS 05/27/23 [History Last Taken 05/26/23] Allergy/AdvReac Type Severity Reaction Status Date / Time Sulfa (Sulfonamide Allergy Rash Verified 05/27/23 16:32 Antibiotics) belladonna alkaloids AdvReac Other Verified 05/27/23 16:32 Family History Other Anxiety disorder CVA (cerebral vascular accident) Surgical History H/O: hysterectomy Hx of cholecystectomy Social History household members: spouse Smoking Status: Never smoker substance use type: does not use ROS ROS Narrative Pertinent positives and pertinent negatives as noted in HPI. All other systems were reviewed and are negative Vital Signs Vital Signs Vital Signs: 05/27/23 16:32 05/27/23 18:54 05/27/23 19:49 Temperature 97.6 F L Temperature Source Temporal Pulse Rate 114 H 82 70 Respiratory Rate 19 H 16 15 Blood Pressure 136/78 H 157/90 H 134/71 H Blood Pressure Mean 97 112 92 Pulse Ox 97 95 93 Oxygen Delivery Method Room Air Room Air Room Air 05/27/23 20:49 Temperature Temperature Source Pulse Rate 69 Respiratory Rate 15 Blood Pressure 121/79 H Blood Pressure Mean 93 Pulse Ox 98 Oxygen Delivery Method Physical Exam Narrative Physical exam: General: Well-nourished, well-developed. Head: Normocephalic, atraumatic, no tenderness Eyes: Vision is grossly intact. EOMI ENT, no trauma, dry mucous membranes, no rhinorrhea Neck: Nontender, No thyromegaly. CVS: Regular rate and rhythm. S1-S2 present. No murmur, gallop or rub. Respiratory : clear to auscultation bilaterally, chest wall nontender Abdomen: Soft, nontender, nondistended, normal bowel sounds, no masses : Deferred Back: Nontender, no CVA tenderness, no midline spinal tenderness, deformities, step-offs. Straight leg test is negative bilaterally. Extremities: Nontender full range of motion, no trauma Skin: Normal color, no trauma, abrasions Neuro: Alert, oriented, cranial nerves II through XII grossly intact. Psychiatry: Normal mood. Normal affect. Not depressed. Not anxious. Results Lab / Micro Data 05/27/23 18:05 05/27/23 18:05 Labs: Laboratory Results - last 24 hr 05/27/23 18:05: WBC 12.3 H, RBC 4.58, Hgb 13.3, Hct 40.6, MCV 88.6, MCH 29.0, MCHC 32.8, RDW Std Deviation 41.5, RDW Coeff of Paula 12.9, Plt Count 261, MPV 9.4, Immature Gran % (Auto) 0.300, Neut % (Auto) 83.8 H, Lymph % (Auto) 7.7 L, [place] % (Auto) 7.2, Eos % (Auto) 0.7, Baso % (Auto) 0.3, Absolute Neuts (auto) 10.3 H, Absolute Lymphs (auto) 0.95, Nucleated RBC % 0, Sodium 136, Potassium 3.6, Chloride 104, Carbon Dioxide 26.0, Anion Gap 6, BUN 21 H, Creatinine 1.09 H, Est GFR (MDRD) Af Amer 61, Est GFR (MDRD) Non-Af 51 L, BUN/Creatinine Ratio 19.3, Glucose 106, Calcium 9.5 05/27/23 19:30: Urine Color Yellow, Urine Clarity Clear, Urine pH 6.5, Ur Specific [place] 1.015, Urine Protein 30 H, Urine Glucose (UA) Normal, Urine Ketones 150 A*, Urine Occult Blood 50 H, Urine Nitrite Negative, Urine Bilirubin Negative, Urine Urobilinogen Normal, Ur Leukocyte Esterase 100 H, Urine RBC 0-5 SEEN, Urine WBC 5-10 SEEN, Ur Squamous Epith Cells 0-5 SEEN, Urine Bacteria 0 SEEN, Urine Mucus 0 SEEN Radiology Impression Lumbar Spine X-Ray 05/27/23 18:45 IMPRESSION: Stable T12 and L4 compression fractures. Degenerative change. Electronically Signed: Phillip Granado MD at 19:15 EDT , Assessment & Plan Assessment/Plan (1) Intractable back pain: PLAN: Plan Intractable lower back pain Radiology interpretation of lumbar spine x-ray: Stable T12 and L4 compression fractures. Degenerative change. Patient placed on scheduled Tylenol. As needed oxycodone continued with parameters.. Morphine ordered. Escalate tizanidine that was started about 2 days ago. Lumbar spine MRI ordered. Pain management consult. Dry mucous membrane Normal saline fluid hydration ordered. Leukocytosis Likely reactive Trend. DVT prophylaxis SCD ordered. Time spent in the patient's overall evaluation,decision-making process, review of diagnostic data, adjustment of management, discussion with other providers, nursing and ancillary staff involved in patient's care documentation, 45 minutes. Charges/Coding Visit Charges Inpatient E&M: 00255 Init Hosp L2
[2023-05-27 22:14] VITALS: BMI 25.8
[2023-05-27 22:32] VITALS: BP 159/80; PULSE 94; RESP 18; TEMP 36.8; O2SAT 100
[2023-05-27] MEDS: 0.9% Normal Saline (1000mL) 1,000 ML 75 ML IV (22:36)
[2023-05-27] MEDS: Acetaminophen 500 MG Tablet 1000 MG PO (22:41)
[2023-05-27] MEDS: 0.9% Saline Lock 10 ML Syringe IV (22:41)
[2023-05-27] MEDS: oxyCODONE 5 MG Tablet PO (22:41)
[2023-05-27] MEDS: tiZANidine HCl 2 MG Tablet PO (22:41)
[2023-05-28 03:07] VITALS: BP 121/66; PULSE 80; RESP 16; TEMP 36.6; O2SAT 94
[2023-05-28] MEDS: Morphine 4 MG/ML Syringe 3 MG IV ×2 (03:44→08:44)
[2023-05-28] MEDS: Acetaminophen 500 MG Tablet 1000 MG PO ×3 (05:20→20:05)
[2023-05-28] MEDS: oxyCODONE 5 MG Tablet PO (05:20)
[2023-05-28] MEDS: Levothyroxine 50 MCG Tablet PO (05:20)
--- NOTE | 2023-05-28 05:55 | MRI_ITS ---
HISTORY: Back Pain, KNOWN FRACTURE T12 AND L4 TECHNIQUE: Multiplanar and multisequence MR images of the lumbar spine were obtained without intravenous contrast. 144 images. COMPARISON: XR prior day and 05/19/2023, CT 05/10/2023. FINDINGS: VERTEBRAE: T12 compression fracture with approximately 60% loss of height, bone marrow edema, and no significant retropulsion into the spinal canal. Mild chronic compression fracture of L4. Degenerative endplate changes of T12-L1 and L4-5. ALIGNMENT: No anterior or posterior subluxation. SPINAL CANAL: Normal morphology and position of the conus medullaris at L1-2. No gross ligamentous disruption or epidural collection. INTERVERTEBRAL DISCS: T12-L1: 1.9 cm craniocaudal right paracentral and foraminal disc extrusion with superior and inferior migration resulting in right T12 and L1 nerve root impingement, moderate central canal stenosis, severe right, and mild-moderate left foraminal narrowing. L1-2: Mild posterior disc bulge osteophyte complex with facet arthropathy superimposed on a developmentally narrow spinal canal resulting in mild central canal stenosis and bilateral foraminal narrowing. L2-3: Mild posterior disc bulge osteophyte complex with facet arthropathy superimposed on a developmentally narrow spinal canal resulting in moderate central canal stenosis and bilateral foraminal narrowing. L3-4: Mild posterior disc bulge osteophyte complex with facet arthropathy superimposed on a developmentally narrow spinal canal resulting in mild-moderate central canal stenosis and bilateral foraminal narrowing. L4-5: Mild posterior disc bulge osteophyte complex with facet arthropathy superimposed on a developmentally narrow spinal canal resulting in moderate central canal stenosis and bilateral foraminal narrowing. L5-S1: Mild disc bulge with facet arthropathy resulting in mild central canal stenosis and bilateral foraminal narrowing. SOFT TISSUES: Prevertebral edema at the level of the T12 compression fracture. Posterior subcutaneous and intramuscular edema. Left renal and left ovarian cysts again seen. MRI/Spine Lumbar (Routine) IMPRESSION: Severe acute-subacute T12 compression fracture with height similar to 05/19/2023. Large right disc extrusion at T12-L1 resulting in right nerve root impingement, moderate spinal canal stenosis, and right greater than left foraminal narrowing. 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 Chronic T4 compression fracture. Electronically Signed: Aga Guerrero MD at 10:58 EDT ,
[2023-05-28] MEDS: Cholecalciferol (VIT D3) 25 MCG TABLET (1,000 UNITS) 50 MCG PO ×2 (08:45→20:05)
[2023-05-28] MEDS: Calcium Carbonate 500 MG Tablet PO (08:46)
[2023-05-28] MEDS: amLODIPine 5 MG Tablet PO (08:46)
[2023-05-28] MEDS: Pantoprazole Sodium 40 MG Tablet PO (08:46)
[2023-05-28] MEDS: Losartan Potassium 25 MG Tablet PO (08:46)
[2023-05-28] MEDS: hydroCHLOROthiazide 12.5mg 12.5 MG PO (08:46)
[2023-05-28] MEDS: Paroxetine 20 MG Tablet 40 MG PO (08:47)
[2023-05-28] MEDS: Ascorbic Acid 500 MG Tablet 1000 MG PO (08:48)
[2023-05-28] MEDS: Methenamine Hippurate 1 GM Tablet PO (08:48)
--- NOTE | 2023-05-28 08:50 | PCM.PN.HOSP ---
Reason for Visit Reason for Visit: Diagnoses Dorsalgia, unspecified (05/27/23) Subjective Subjective Patient feels the medications are helping but then symptoms go back telemetry reports they wear off, feels the same as yesterday otherwise Objective Data Objective Data Vital Signs: Vital Signs Temp Pulse Resp BP Pulse Ox O2 Del Method 98 F 80 16 121/66 H 94 Room Air 05/28/23 03:07 05/28/23 03:07 05/28/23 03:07 05/28/23 03:07 05/28/23 03:07 05/28/23 03:07 Oxygen Delivery Method Room Air Weight: 68.2 kg Body Mass Index (BMI) 25.8 Intake & Output: Intake and Output for Last 24 Hours 05/26/23 05/27/23 05/28/23 23:59 23:59 23:59 Output Total 100 / 100 Balance -100 / -100 Lab / Micro Data 05/28/23 10:36 05/27/23 18:05 Labs: Laboratory Results - last 24 hr 05/27/23 18:05: WBC 12.3 H, RBC 4.58, Hgb 13.3, Hct 40.6, MCV 88.6, MCH 29.0, MCHC 32.8, RDW Std Deviation 41.5, RDW Coeff of Paula 12.9, Plt Count 261, MPV 9.4, Immature Gran % (Auto) 0.300, Neut % (Auto) 83.8 H, Lymph % (Auto) 7.7 L, [place] % (Auto) 7.2, Eos % (Auto) 0.7, Baso % (Auto) 0.3, Absolute Neuts (auto) 10.3 H, Absolute Lymphs (auto) 0.95, Nucleated RBC % 0, Sodium 136, Potassium 3.6, Chloride 104, Carbon Dioxide 26.0, Anion Gap 6, BUN 21 H, Creatinine 1.09 H, Est GFR (MDRD) Af Amer 61, Est GFR (MDRD) Non-Af 51 L, BUN/Creatinine Ratio 19.3, Glucose 106, Calcium 9.5 05/27/23 19:30: Urine Color Yellow, Urine Clarity Clear, Urine pH 6.5, Ur Specific [place] 1.015, Urine Protein 30 H, Urine Glucose (UA) Normal, Urine Ketones 150 A*, Urine Occult Blood 50 H, Urine Nitrite Negative, Urine Bilirubin Negative, Urine Urobilinogen Normal, Ur Leukocyte Esterase 100 H, Urine RBC 0-5 SEEN, Urine WBC 5-10 SEEN, Ur Squamous Epith Cells 0-5 SEEN, Urine Bacteria 0 SEEN, Urine Mucus 0 SEEN Radiography Diagnostic Testing: Radiology Impression Lumbar Spine X-Ray 05/27/23 18:45 IMPRESSION: Stable T12 and L4 compression fractures. Degenerative change. Electronically Signed: Phillip Granado MD at 19:15 EDT , Physical Exam Narrative General: Alert, oriented, no apparent distress HEENT: Atraumatic, normocephalic, dry mouth Eyes: Anicteric, normal conjunctiva, extraocular movements grossly intact Neck: Supple Respiratory: Clear to auscultation bilaterally, normal respiratory effort Cardiovascular: Regular rate and rhythm GI: Soft, nontender, nondistended Extremities: No edema Musculoskeletal: Moving all extremities Neuro: No overt focal neurological deficits Skin: No rashes appreciated Psych: Cooperative Assessment & Plan Assessment/Plan (1) Intractable back pain: PLAN: Plan #Intractable lower back pain w/ hx of chronic T12 and L4 compression fxs -Radiology interpretation of lumbar spine x-ray: Stable T12 and L4 compression fractures. Degenerative change. -Patient placed on scheduled Tylenol. As needed oxycodone continued with parameters.. Morphine ordered. Escalate tizanidine that was started about 2 days ago. Lumbar spine MRI ordered. Pain management consult. -05/28: Continue as needed pain medication, awaiting MRI, appreciate pain management input. PT/OT ordered #CKD stage IIIb -Creatinine slightly less than baseline but patient appeared dry on admission, receiving IV fluids -05/28: Continue to monitor #Leukocytosis -Likely reactive -Trend. -05/28: Resolved DVT prophylaxis SCD ordered. Time spent in the patient's overall evaluation,decision-making process, review of diagnostic data, adjustment of management, discussion with other providers, nursing and ancillary staff involved in patient's care documentation, 30 minutes. Charges/Coding Visit Charges Inpatient E&M: 94137 [facility] Hosp L1
[2023-05-28 10:46] LABS: Absolute Lymphocyte Count 0.86 X10^3/uL (0.83-4.51); Absolute Neutrophil Count 7.6 X10^3/uL (2.0-7.7); Basophil# 0.03 X10^3/uL; Basophil% 0.3 % (0-1); Eosinophil# 0.14 X10^3/uL; Eosinophils% 1.5 % (0-5); Hematocrit 38.8 % (37-47); Hemoglobin 13.1 g/dL (12.0-15.0); Lymphocyte # 0.86 X10^3/ul (0.83-4.51); Lymphocyte % 9.3 % (19-41); Mean Corp Hgb Conc 33.8 g/dL (32-36); Mean Corpuscular Volume 88.8 fL (81-99); Mean Platelet Vol. 9.7 fl (6.2-12.0); Monocyte# 0.59 X10^3/uL; Monocyte% 6.4 % (0-10); NRBC Flagged by Analyzer 0 % (0-5); Neutrophil # 7.58 X10^3/uL (2.7-7.7); Neutrophil % 82.2 % (47-70); Platelet Count 258 K/mm3 (150-450); RBC Distribution Width CV 12.9 % (11.6-14.6); RBC Distribution Width SD 42.5 fl (35.1-43.9); Red Blood Count 4.37 M/mm3 (4.2-5.4); White Blood Count 9.2 K/mm3 (4.4-11.0)
[2023-05-28 11:12] LABS: Anion Gap 8 (5-15); BUN 22 mg/dL (7-18); BUN/Creat Ratio 20.2 RATIO (10-20); Calcium,Total 9.3 mg/dL (8.5-10.1); Chloride 108 mmol/L (98-107); Creatinine, Serum 1.09 mg/dL (0.55-1.02); EST Glomerular Filtration Rate 51 mL/min (>60); Est Glom Filt Rate - Afr Amer 61 mL/min (>60); Estimated Creatinine Clearance 32.58 ml/min; Glucose 97 mg/dL (74-106); Potassium 3.4 mmol/L (3.5-5.1); Sodium Level 139 mmol/L (136-145)
[2023-05-28] MEDS: 0.9% Normal Saline (1000mL) 1,000 ML 75 ML IV (12:50)
[2023-05-28] MEDS: Potassium Chloride Oral Tablet 20 MEQ 40 MEQ PO (12:52)
--- NOTE | 2023-05-28 13:15 | CASEMGMT ---
RN?CM?EXHIBIT PREPARATOR?CM?to room to meet with patient for initial transition planning/care coordination?assessment.?RN?CM?introduced self and role at [facility].? Pt voices understanding and consents to?assessment?at this time.? Pt sitting up in chair in room in no distress at this time.? Pt is A/O at this time and answers all questions appropriately.?? Care providers, pharmacy, and demographics verified/updated at this time. PCP: Bell Gaffney NP Specialists: pain management. Dr Prado-urology [facility] Benefit:?Yes Living Will/HPOA:?Pt does not currently have LW/HCPOA and declines info at this time.? Pt made aware that she can contact as an out-pt and make appt in the future if she decides she would like to talk with someone about this or would like to utilize [facility] social work for advanced directive completion.? Given Ticket Sales Supervisor Rac card with information and contact number. Pt expresses understanding.? LNOK: , Jack. 2 adult children: daughter and son Living Arrangements: Lives w/her in 2-story home w/2 steps to enter. Bedroom and full bathroom on 2nd floor, 1/2 bath on main floor. Pt states up until about 3 weeks ago, she was independent w/ADL's and IADL's and able to navigate the stairs quite well. Pt states her back started hurting a few weeks ago and the pain has become worse. She states for the past week it has been difficult to walk and either her or son have been assisting her w/walking and w/IADL's. The past 2 days it has been so painful, she has been staying upstairs and her family have been bringing her meals and assisting her. DME: ?States has the following DME:?cane. ?Pt states no need for further DME at this time.?Pt does not have a walker and may need one. PT/OT evals pending. HHC/SNF: No hx of either. Made aware PT/OT evals are pending and recommendations will be made. Discussed possible options of SNF, HHC, and OP therapy. Pt states she wants to take some time to think about it and talk w/her . She states she may be amendable to going to a SNF if it is recommended. Елена NOWAK, made aware. PLAN:??TBD. SNF vs home w/HHC, pending course of treatment and progress w/therapy. Amy BSN?RN?CM
[2023-05-28 15:00] VITALS: BP 141/78; PULSE 77; RESP 16; TEMP 36.7; O2SAT 93
[2023-05-28 16:00] VITALS: PULSE 82
--- NOTE | 2023-05-28 16:07 | CASEMGMT ---
Patient declined to have [employer] form reviewed or sign. She stated that she was trying to order dinner and she had company. When asked when a good time would be, she stated tomorrow. Will attempt to review with patient tomorrow. Bette Garza, Discharge Planning Asst.
--- NOTE | 2023-05-28 16:21 | PCM.CONS.GEN ---
Assessment & Plan Assessment/Plan (1) Intractable back pain: (2) Compression fracture: (3) Back pain: (4) Spinal stenosis of lumbar region: PLAN: Plan Ms. Villeda is a pleasant 87 y/o female with severe acute back pain that has limited her ability to perform adls. She is now admitted due to progressively worsening low back pain. She is now barely able to stand and walk due to the pain. The pain appears to be most consistent with severe muscle spasms that are likely related to her recent acute/subacute T12 vertebral compression fracture. MRI imaging demonstrated about 60% reduction in the vertebral height of the T12 vertebrae. I spoke with Dr. Kwon about possible kyphoplasty of the T12 vertebrae. We discussed this at length and decided to proceed with this procedure as an inpatient tomorrow. We will perform this kyphoplasty together as this is a relatively severe compression fracture. I spoke at length about this plan with the patient and her family and they are in agreement to proceed with the kyphoplasty and that I would be coordinating with Dr. Kwon to perform this procedure. -Continue current pain management regimen as per the hospitalist team as she has been feeling a bit better. She has had a little sleepiness on the current regimen, so I would not increase the dosing or frequency of the medications at this time. She denies any other side effects. -NPO at midnight, avoid anticoagulant medications. -Plan for T12 kyphoplasty in OR 05/29/2023. -I will consider epidural steroid injection as well in the future, likely to be performed in the outpatient setting after discharge. HPI Consult Data Date of Consult: 05/28/23 HPI Narrative Reason for Consultation: Back pain HPI Narrative: LINDSAY SALDIVAR, is a 87 F who presents with severe low back pain. She was last seen in our outpatient clinic on Thursday05/25/2023 for her low back pain. The pain started about 3 weeks ago after no clear inciting incident. The pain has been progressive and debilitating since that time. She has underwent multiple ED visits and prescribed opioid medications, which have helped short term, but the pain quickly returns. After her visit this thursday, I prescribed low dose tizanidine for her spasm pain along with oxycodone. The plan was to perform a LESI in order to improve her symptoms until an MRI could be obtained and then consider a kyphoplasty as this was felt to be the most likely cause of her pain. Furthermore, she had recent CT imaging and xray imaging showing a T12 compression fracture that was not seen on previous imaging. Her L4 compression fraction was present previous to the start of her pain. After her visit she states her pain worsened and she had difficulty standing and walking to the point that she was essentially unable to leave her bed on Thursday and Thursday. She went to the ED and was admitted for pain and poor function. She has since been managed with oxycodone, morphine and tizanidine with some improvement in her pain. FOR[facility]LY [facility] Medical History Arthritis Hemorrhoids Hypertension Knee pain Osteoporosis Thyroid disease Home Medications Omeprazole [Prilosec] 40 mg PO DAILY 08/23/14 [History Last Taken 05/27/23] amlodipine 5 mg tablet 5 mg PO DAILY 08/23/14 [History Last Taken 05/27/23] paroxetine HCl 40 mg tablet (Paxil) 40 mg PO DAILY 08/23/14 [History Last Taken 05/27/23] albuterol sulfate 90 mcg/actuation aerosol inhaler (ProAir HFA) 1 puff inhalation DAILY PRN sob 12/04/17 [History Last Taken 05/21/23] calcium carbonate 600 mg calcium (1,500 mg) tablet 600 mg PO DAILY 12/04/17 [History Last Taken 05/27/23] cholecalciferol (vitamin D3) 50 mcg (2,000 unit) chewable tablet 2,000 unit PO BID 12/04/17 [History Last Taken 05/27/23] levothyroxine 50 mcg tablet 50 mcg PO DAILY 12/04/17 [History Last Taken 05/27/23] pyridoxine (vitamin B6) 25 mg tablet (Vitamin B-6) 25 mg PO DAILY 12/04/17 [History Last Taken Unknown] triamcinolone acetonide 55 mcg nasal spray aerosol (Nasacort) 1 spray NS DAILY 12/04/17 [History Last Taken Unknown] oxycodone-acetaminophen 5 mg-325 mg tablet 1 tab PO Q6H PRN PRN pain 5 days #20 TABLETS 05/19/23 [Rx Last Taken Unknown] ascorbic acid (vitamin C) 500 mg tablet (Vitamin C) 1 g PO DAILY 05/27/23 [History Last Taken 05/27/23] calcitonin (salmon) 200 unit/actuation nasal spray 1 spray intranasal (ALT) DAILY PRN see md 05/27/23 [History Last Taken Unknown] hydrochlorothiazide 12.5 mg capsule 12.5 mg PO DAILY 05/27/23 [History Last Taken 05/27/23] losartan 25 mg tablet 25 mg PO DAILY 05/27/23 [History Last Taken 05/27/23] methenamine hippurate 1 gram tablet 1 g PO DAILY PRN prevent uti 05/27/23 [History Last Taken 05/27/23] oxycodone 5 mg tablet 5 mg PO Q6H pain 05/27/23 [History Last Taken 05/27/23] rosuvastatin 5 mg tablet 5 mg PO QODAY 05/27/23 [History Last Taken Unknown] tizanidine 2 mg tablet 1 mg PO QHS 05/27/23 [History Last Taken 05/26/23] Allergy/AdvReac Type Severity Reaction Status Date / Time Sulfa (Sulfonamide Allergy Rash Verified 05/27/23 16:32 Antibiotics) belladonna alkaloids AdvReac Other Verified 05/27/23 16:32 Family History Other Anxiety disorder CVA (cerebral vascular accident) Surgical History H/O: hysterectomy Hx of cholecystectomy Social History household members: spouse Smoking Status: Never smoker substance use type: does not use ROS Constitutional Constitutional: Denies anorexia, change in weight, chills, fatigue, fever(s), malaise, night sweats, weakness, weight gain or weight loss Musculoskeletal Musculoskeletal: Reports back pain; Denies extremity pain, joint pain, joint stiffness, joint swelling, limited range of motion, muscle weakness, neck pain or stiffness Physical Exam Narrative She has tenderness to percussion over the lower back. She has limited ROM due to significant pain. She has difficulty standing and sitting up due to pain. 5/5 strength in the lower extremities. Sensation is intact in the lower extremities. She has no significant tenderness to the paraspinal muscles in the thoracic and lumbar region. Const alert, oriented x3, no apparent distress and well nourished General Appearance: cooperative and well developed HEENT normocephalic Eyes EOMs intact bilaterally Resp normal respiratory effort Cardio regular rate Skin no rashes or lesions noted Psych affect normal Appearance: appropriate Medical Records Data Attestation: I reviewed the patient's medical records (Lumbar MRI) Medical records narrative: Her MRI shows a compression fracture of the T12 vertebral body. Additionally, there was a L4 vertebral compression fracture that appeared chronic in nature. Her T12 fracture appears to be acute or subacute in nature. Furthermore there is some posterior disc extrusion. Lab / Micro Data 05/28/23 10:36 05/28/23 10:36 Labs: Laboratory Results - last 24 hr 05/27/23 18:05: WBC 12.3 H, RBC 4.58, Hgb 13.3, Hct 40.6, MCV 88.6, MCH 29.0, MCHC 32.8, RDW Std Deviation 41.5, RDW Coeff of Paula 12.9, Plt Count 261, MPV 9.4, Immature Gran % (Auto) 0.300, Neut % (Auto) 83.8 H, Lymph % (Auto) 7.7 L, [place] % (Auto) 7.2, Eos % (Auto) 0.7, Baso % (Auto) 0.3, Absolute Neuts (auto) 10.3 H, Absolute Lymphs (auto) 0.95, Nucleated RBC % 0, Sodium 136, Potassium 3.6, Chloride 104, Carbon Dioxide 26.0, Anion Gap 6, BUN 21 H, Creatinine 1.09 H, Est GFR (MDRD) Af Amer 61, Est GFR (MDRD) Non-Af 51 L, BUN/Creatinine Ratio 19.3, Glucose 106, Calcium 9.5 05/27/23 19:30: Urine Color Yellow, Urine Clarity Clear, Urine pH 6.5, Ur Specific Jack 1.015, Urine Protein 30 H, Urine Glucose (UA) Normal, Urine Ketones 150 A*, Urine Occult Blood 50 H, Urine Nitrite Negative, Urine Bilirubin Negative, Urine Urobilinogen Normal, Ur Leukocyte Esterase 100 H, Urine RBC 0-5 SEEN, Urine WBC 5-10 SEEN, Ur Squamous Epith Cells 0-5 SEEN, Urine Bacteria 0 SEEN, Urine Mucus 0 SEEN 05/28/23 10:36: WBC 9.2, RBC 4.37, Hgb 13.1, Hct 38.8, MCV 88.8, MCH 30.0, MCHC 33.8, RDW Std Deviation 42.5, RDW Coeff of Paula 12.9, Plt Count 258, MPV 9.7, Immature Gran % (Auto) 0.300, Neut % (Auto) 82.2 H, Lymph % (Auto) 9.3 L, [place] % (Auto) 6.4, Eos % (Auto) 1.5, Baso % (Auto) 0.3, Absolute Neuts (auto) 7.6, Absolute Lymphs (auto) 0.86, Nucleated RBC % 0, Sodium 139, Potassium 3.4 L, Chloride 108 H, Carbon Dioxide 23.0, Anion Gap 8, BUN 22 H, Creatinine 1.09 H, Estim Creat Clear Calc 32.58, Est GFR (MDRD) Af Amer 61, Est GFR (MDRD) Non-Af 51 L, BUN/Creatinine Ratio 20.2 H, Glucose 97, Calcium 9.3 Radiology Impression Lumbar Spine X-Ray 05/27/23 18:45 IMPRESSION: Stable T12 and L4 compression fractures. Degenerative change. Electronically Signed: Phillip Granado MD at 19:15 EDT , Lumbar Spine MRI 05/28/23 05:55 IMPRESSION: Severe acute-subacute T12 compression fracture with height similar to 05/19/2023. Large right disc extrusion at T12-L1 resulting in right nerve root impingement, moderate spinal canal stenosis, and right greater than left foraminal narrowing. 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 Chronic T4 compression fracture. Electronically Signed: Aga Guerrero MD at 10:58 EDT , Charges/Coding Multi Select Codes Visit Charges Office Visit/Consults: 43777 IP Consult L4
[2023-05-28 19:59] VITALS: BP 151/83; PULSE 86; RESP 16; TEMP 36.8; O2SAT 94
[2023-05-28] MEDS: tiZANidine HCl 2 MG Tablet PO (20:05)
[2023-05-28] MEDS: Atorvastatin Calcium 10 MG Tablet PO (20:08)
[2023-05-29] VITALS (13 sets, daily range): BP systolic 134–168; BP diastolic 73–87; PULSE 89–107; RESP 16–18; TEMP 36.6–37; O2SAT 85–95; BMI 25.8
[2023-05-29] MEDS: Acetaminophen 500 MG Tablet 1000 MG PO ×3 (05:28→21:31)
[2023-05-29] MEDS: Levothyroxine 50 MCG Tablet PO (05:28)
--- NOTE | 2023-05-29 06:00 | EKG12_ITS ---
Test Reason : AM EKG Blood Pressure : / mmHG Vent. Rate : 099 BPM Atrial Rate : 099 BPM P-R Int : 152 ms QRS Dur : 066 ms QT Int : 372 ms P-R-T Axes : 061 -03 020 degrees QTc Int : 477 ms Normal sinus rhythm Low voltage QRS Borderline ECG When compared with ECG of 12-APR-2001 11:35, QT has lengthened Confirmed by JERICHO HUGHES, HARMONY ([id number]), website/blog editor MARCOS BERUMEN ([id number]) on 06/04/2023 1:26:29 PM Referred By: CAMILLA Confirmed By:HARMONY ECHAVARRIA MD
[2023-05-29 06:25] LABS: Absolute Lymphocyte Count 0.71 X10^3/uL (0.83-4.51); Absolute Neutrophil Count 7.7 X10^3/uL (2.0-7.7); Basophil# 0.03 X10^3/uL; Basophil% 0.3 % (0-1); Eosinophil# 0.35 X10^3/uL; Eosinophils% 3.7 % (0-5); Hematocrit 38.5 % (37-47); Hemoglobin 12.4 g/dL (12.0-15.0); Lymphocyte # 0.71 X10^3/ul (0.83-4.51); Lymphocyte % 7.5 % (19-41); Mean Corp Hgb Conc 32.2 g/dL (32-36); Mean Corpuscular Hgb 28.8 pg (27.0-32.0); Mean Corpuscular Volume 89.5 fL (81-99); Mean Platelet Vol. 9.7 fl (6.2-12.0); Monocyte# 0.63 X10^3/uL; Monocyte% 6.7 % (0-10); NRBC Flagged by Analyzer 0 % (0-5); Neutrophil # 7.68 X10^3/uL (2.7-7.7); Neutrophil % 81.4 % (47-70); Platelet Count 237 K/mm3 (150-450); RBC Distribution Width SD 42.4 fl (35.1-43.9); White Blood Count 9.4 K/mm3 (4.4-11.0)
[2023-05-29 07:03] LABS: Anion Gap 9 (5-15); BUN 20 mg/dL (7-18); BUN/Creat Ratio 22.2 RATIO (10-20); Calcium,Total 8.7 mg/dL (8.5-10.1); Chloride 109 mmol/L (98-107); EST Glomerular Filtration Rate 63 mL/min (>60); Est Glom Filt Rate - Afr Amer 76 mL/min (>60); Estimated Creatinine Clearance 39.46 ml/min; Glucose 106 mg/dL (74-106); Potassium 3.7 mmol/L (3.5-5.1); Sodium Level 143 mmol/L (136-145); Thyroid Stim Hormone (TSH) 1.13 uIU/mL (0.358-3.74)
[2023-05-29] MEDS: Calcium Carbonate 500 MG Tablet PO (07:27)
[2023-05-29] MEDS: amLODIPine 5 MG Tablet PO (07:28)
[2023-05-29] MEDS: hydroCHLOROthiazide 12.5mg 12.5 MG PO (07:28)
[2023-05-29] MEDS: Pantoprazole Sodium 40 MG Tablet PO (07:28)
[2023-05-29] MEDS: Ascorbic Acid 500 MG Tablet 1000 MG PO (07:28)
[2023-05-29] MEDS: Cholecalciferol (VIT D3) 25 MCG TABLET (1,000 UNITS) 50 MCG PO ×2 (07:29→21:31)
[2023-05-29] MEDS: Losartan Potassium 25 MG Tablet PO (07:30)
[2023-05-29] MEDS: Paroxetine 20 MG Tablet 40 MG PO (07:30)
--- NOTE | 2023-05-29 07:39 | PN.HOSP_ITS ---
Reason for Visit Reason for Visit: Diagnoses Spinal stenosis, lumbar region without neurogenic claudication (05/27/23) Dorsalgia, unspecified (05/27/23) Subjective Subjective Back still hurting, has no other acute complaints Objective Data Objective Data Vital Signs: Vital Signs Temp Pulse Resp BP Pulse Ox O2 Del Method 98.4 F 90 18 147/84 H 94 Room Air 05/29/23 02:55 05/29/23 02:55 05/29/23 02:55 05/29/23 02:55 05/29/23 02:55 05/29/23 02:55 Oxygen Delivery Method Room Air Weight: 68.2 kg Body Mass Index (BMI) 25.8 Intake & Output: Intake and Output for Last 24 Hours 05/27/23 05/28/23 05/29/23 23:59 23:59 23:59 Intake Total 1500 / 1500 1000 / 1000 Output Total 500 / 500 100 / 100 Balance 1000 / 1000 900 / 900 Lab / Micro Data 05/29/23 06:00 05/29/23 06:00 Labs: Laboratory Results - last 24 hr 05/28/23 10:36: WBC 9.2, RBC 4.37, Hgb 13.1, Hct 38.8, MCV 88.8, MCH 30.0, MCHC 33.8, RDW Std Deviation 42.5, RDW Coeff of Paula 12.9, Plt Count 258, MPV 9.7, Imm ature Gran % (Auto) 0.300, Neut % (Auto) 82.2 H, Lymph % (Auto) 9.3 L, [place] % (Auto) 6.4, Eos % (Auto) 1.5, Baso % (Auto) 0.3, Absolute Neuts (auto) 7.6, Absolute Lymphs (auto) 0.86, Nucleated RBC % 0, Sodium 139, Potassium 3.4 L, Chloride 108 H, Carbon Dioxide 23.0, Anion Gap 8, BUN 22 H, Creatinine 1.09 H, Estim Creat Clear Calc 32.58, Est GFR (MDRD) Af Amer 61, Est GFR (MDRD) Non-Af 51 L, BUN/Creatinine Ratio 20.2 H, Glucose 97, Calcium 9.3 05/29/23 06:00: WBC 9.4, RBC 4.30, Hgb 12.4, Hct 38.5, MCV 89.5, MCH 28.8, MCHC 32.2, RDW Std Deviation 42.4, RDW Coeff of Paula 13.0, Plt Count 237, MPV 9.7, Immature Gran % (Auto) 0.400, Neut % (Auto) 81.4 H, Lymph % (Auto) 7.5 L, [place] % (Auto) 6.7, Eos % (Auto) 3.7, Baso % (Auto) 0.3, Absolute Neuts (auto) 7.7, Absolute Lymphs (auto) 0.71 L, Nucleated RBC % 0, Sodium 143, Potassium 3.7, Chloride 109 H, Carbon Dioxide 25.0, Anion Gap 9, BUN 20 H, Creatinine 0.90, Estim Creat Clear Calc 39.46, Est GFR (MDRD) Af Amer 76, Est GFR (MDRD) Non-Af 63, BUN/Creatinine Ratio 22.2 H, Glucose 106, Calcium 8.7, TSH 1.13 Radiography Diagnostic Testing: Radiology Impression Lumbar Spine MRI 05/28/23 05:55 IMPRESSION: Severe acute-subacute T12 compression fracture with height similar to 05/19/2023. Large right disc extrusion at T12-L1 resulting in right nerve root impingement, moderate spinal canal stenosis, and right greater than left foraminal narrowing. 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 Chronic T4 compression fracture. Electronically Signed: Aga Guerrero MD at 10:58 EDT Reading Location ID and State: [facility] / [place] Tel , Service support , Physical Exam Narrative General: Alert, oriented, no apparent distress HEENT: Atraumatic, normocephalic, dry mouth Eyes: Anicteric, normal conjunctiva, extraocular movements grossly intact Neck: Supple Respiratory: Clear to auscultation bilaterally, normal respiratory effort Cardiovascular: Regular rate and rhythm GI: Soft, nontender, nondistended Extremities: No edema Musculoskeletal: Moving all extremities Neuro: No overt focal neurological deficits Skin: No rashes appreciated Psych: Cooperative Assessment & Plan Assessment/Plan (1) Intractable back pain: PLAN: Plan #Intractable lower back pain w/ hx of chronic T12 and L4 compression fxs -Radiology interpretation of lumbar spine x-ray: Stable T12 and L4 compression fractures. Degenerative change. -Patient placed on scheduled Tylenol. As needed oxycodone continued with parameters.. Morphine ordered. Escalate tizanidine that was started about 2 days ago. Lumbar spine MRI ordered. Pain management consult. -05/28: Continue as needed pain medication, awaiting MRI, appreciate pain management input. PT/OT ordered -05/29: Discussed with Dr. Galvan, he and Dr. Kwon will perform kyphoplasty this afternoon. Continue pain management, continue PT/OT #CKD stage IIIb -Creatinine slightly less than baseline but patient appeared dry on admission, receiving IV fluids -05/28: Continue to monitor -05/29: Further improved #Leukocytosis -Likely reactive -Trend. -05/28: Resolved DVT prophylaxis SCD ordered. Time spent in the patient's overall evaluation,decision-making process, review of diagnostic data, adjustment of management, discussion with other providers, nursing and ancillary staff involved in patient's care documentation, 36 minutes. Charges/Coding Visit Charges Inpatient E&M: 30490 Subs Hosp L2
--- NOTE | 2023-05-29 10:58 | CONS.ORTHO ---
HPI Consult Data Date of Consult: 05/29/23 HPI Narrative Reason for Consultation: Low back pain HPI Narrative: LINDSAY AMOS, is a 87 F who presents with low back pain for about a month. I was asked to see Mrs. Amos for her acute low back pain by Dr. Galvan and pain management as well as Dr. Vergara. She denies any falls or injuries a month ago but mentions that she had a fall in early summer this year. Over the last 4 weeks her pain has significantly worsened since that she had multiple ER visits and admissions. She says that she has been in the hospital at least for the last week. Since a week, she has not been able to ambulate by herself. She says that she has been transferred to a chair with help. Prior to a month ago she was able to go up and down stairs at home independently and used a cane for support. Over the last few weeks she has had needed help with someone helping her up the stairs. She lives with her and son and other family members. She denies any radiating pain or tingling numbness in the lower extremities. She denies any weakness as well. She has longstanding balance issues. She denies any bladder or bowel disturbances. [facility] Medical History Arthritis Hemorrhoids Hypertension Knee pain Osteoporosis Thyroid disease Home Medications Omeprazole [Prilosec] 40 mg PO DAILY 08/23/14 [History Last Taken 05/27/23] amlodipine 5 mg tablet 5 mg PO DAILY 08/23/14 [History Last Taken 05/27/23] paroxetine HCl 40 mg tablet (Paxil) 40 mg PO DAILY 08/23/14 [History Last Taken 05/27/23] albuterol sulfate 90 mcg/actuation aerosol inhaler (ProAir HFA) 1 puff inhalation DAILY PRN sob 12/04/17 [History Last Taken 05/21/23] calcium carbonate 600 mg calcium (1,500 mg) tablet 600 mg PO DAILY 12/04/17 [History Last Taken 05/27/23] cholecalciferol (vitamin D3) 50 mcg (2,000 unit) chewable tablet 2,000 unit PO BID 12/04/17 [History Last Taken 05/27/23] levothyroxine 50 mcg tablet 50 mcg PO DAILY 12/04/17 [History Last Taken 05/27/23] pyridoxine (vitamin B6) 25 mg tablet (Vitamin B-6) 25 mg PO DAILY 12/04/17 [History Last Taken Unknown] triamcinolone acetonide 55 mcg nasal spray aerosol (Nasacort) 1 spray NS DAILY 12/04/17 [History Last Taken Unknown] oxycodone-acetaminophen 5 mg-325 mg tablet 1 tab PO Q6H PRN PRN pain 5 days #20 TABLETS 05/19/23 [Rx Last Taken Unknown] ascorbic acid (vitamin C) 500 mg tablet (Vitamin C) 1 g PO DAILY 05/27/23 [History Last Taken 05/27/23] calcitonin (salmon) 200 unit/actuation nasal spray 1 spray intranasal (ALT) DAILY PRN see md 05/27/23 [History Last Taken Unknown] hydrochlorothiazide 12.5 mg capsule 12.5 mg PO DAILY 05/27/23 [History Last Taken 05/27/23] losartan 25 mg tablet 25 mg PO DAILY 05/27/23 [History Last Taken 05/27/23] methenamine hippurate 1 gram tablet 1 g PO DAILY PRN prevent uti 05/27/23 [History Last Taken 05/27/23] oxycodone 5 mg tablet 5 mg PO Q6H pain 05/27/23 [History Last Taken 05/27/23] rosuvastatin 5 mg tablet 5 mg PO QODAY 05/27/23 [History Last Taken Unknown] tizanidine 2 mg tablet 1 mg PO QHS 05/27/23 [History Last Taken 05/26/23] Allergy/AdvReac Type Severity Reaction Status Date / Time Sulfa (Sulfonamide Allergy Rash Verified 05/27/23 16:32 Antibiotics) belladonna alkaloids AdvReac Other Verified 05/27/23 16:32 Family History Other Anxiety disorder CVA (cerebral vascular accident) Surgical History H/O: hysterectomy Hx of cholecystectomy Social History household members: spouse Smoking Status: Never smoker substance use type: does not use Vital Signs Vital Signs Vital Signs: 05/28/23 15:00 05/28/23 16:00 05/28/23 19:59 Temperature 98.1 F 98.2 F Temperature Source Temporal Oral Pulse Rate 77 82 86 Pulse Strength Respiratory Rate 16 16 Respiratory Effort Respiratory Depth Respiratory Pattern Blood Pressure 141/78 H 151/83 H Blood Pressure Mean 99 105 Blood Pressure Source Monitor Blood Pressure Position Semi-Fowlers Blood Pressure Location Right Arm Pulse Ox 93 94 Oxygen Delivery Method Room Air Room Air 05/29/23 02:55 05/29/23 07:58 05/29/23 07:58 Temperature 98.4 F 98.4 F Temperature Source Oral Oral Pulse Rate 90 92 Pulse Strength Respiratory Rate 18 16 Respiratory Effort Normal Respiratory Depth Normal Respiratory Pattern Normal Blood Pressure 147/84 H 168/87 H Blood Pressure Mean 105 114 Blood Pressure Source Monitor Monitor Blood Pressure Position Semi-Fowlers Semi-Fowlers Blood Pressure Location Right Arm Right Arm Pulse Ox 94 94 Oxygen Delivery Method Room Air Room Air Room Air 05/29/23 07:58 Temperature Temperature Source Pulse Rate Pulse Strength Normal (2+) Respiratory Rate Respiratory Effort Respiratory Depth Respiratory Pattern Blood Pressure Blood Pressure Mean Blood Pressure Source Blood Pressure Position Blood Pressure Location Pulse Ox Oxygen Delivery Method Weight Weight: 150 lb 5.684 oz Body Mass Index (BMI) 25.8 Physical Exam Const alert and oriented x3 Neuro Neuro Narrative: Examination of her lower back shows mild vague paraspinal tenderness throughout the thoracolumbar to lower lumbar region. Gibbus noticed in the thoracolumbar junction region. Neurologic evaluation of lower extremity shows 5 x 5 power in all muscles normal sensations in all dermatomes. Lab / Micro Data 05/29/23 06:00 05/29/23 06:00 Labs: Laboratory Results - last 24 hr 05/28/23 10:36: Sodium 139, Potassium 3.4 L, Chloride 108 H, Carbon Dioxide 23.0, Anion Gap 8, BUN 22 H, Creatinine 1.09 H, Estim Creat Clear Calc 32.58, Est GFR (MDRD) Af Amer 61, Est GFR (MDRD) Non-Af 51 L, BUN/Creatinine Ratio 20.2 H, Glucose 97, Calcium 9.3 05/29/23 06:00: WBC 9.4, RBC 4.30, Hgb 12.4, Hct 38.5, MCV 89.5, MCH 28.8, MCHC 32.2, RDW Std Deviation 42.4, RDW Coeff of Paula 13.0, Plt Count 237, MPV 9.7, Immature Gran % (Auto) 0.400, Neut % (Auto) 81.4 H, Lymph % (Auto) 7.5 L, [place] % (Auto) 6.7, Eos % (Auto) 3.7, Baso % (Auto) 0.3, Absolute Neuts (auto) 7.7, Absolute Lymphs (auto) 0.71 L, Nucleated RBC % 0, Sodium 143, Potassium 3.7, Chloride 109 H, Carbon Dioxide 25.0, Anion Gap 9, BUN 20 H, Creatinine 0.90, Estim Creat Clear Calc 39.46, Est GFR (MDRD) Af Amer 76, Est GFR (MDRD) Non-Af 63, BUN/Creatinine Ratio 22.2 H, Glucose 106, Calcium 8.7, TSH 1.13 Radiology Impression Lumbar Spine MRI 05/28/23 05:55 IMPRESSION: Severe acute-subacute T12 compression fracture with height similar to 05/19/2023. Large right disc extrusion at T12-L1 resulting in right nerve root impingement, moderate spinal canal stenosis, and right greater than left foraminal narrowing. 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 Chronic T4 compression fracture. Electronically Signed: Aga Guerrero MD at 10:58 EDT Reading Location ID and State: [facility] / [place] Tel , Service support , Assessment & Plan Assessment/Plan (1) Compression fracture: PLAN: I went through the patient's recent x-rays MRI and CT abdomen. Her L4 compression fracture is likely chronic as it shows up on the abdomen from November 2021. The L4 compression deformity has not worsened with time. It is unclear if the L4 is contributing to her pain. Her T12 compression fracture is new and was first seen in the CT abdomen from 05/10/2023. The initial height loss was minimal, but the recent x-ray as well as MRI done within the last week show severe worsening vertebral body height loss at T12, nearing vertebral plana. Due to this progressive vertebral body height loss, I feel that she may benefit from intervention, either in the form of cement augmentation or use of orthosis such as TLSO brace. Since patient has intractable pain not getting better with time and she has lost her mobility at least for the last week, I believe that an urgent cement augmentation procedure would be ideal and will help her return to mobility quicker. Due to her age, regaining mobility and ambulation is critical to prevent any recumbency complications. Her recent MRI also suggests T12-L1 right paraspinal disc herniation with stenosis around the conus medullaris. Patient does not seem to have any bladder or bowel disturbance or any neurological weakness in the lower extremities. She also does not have any radicular symptoms going into the abdomen. I explained to her that this disc herniation may be source of pain, but will likely improve with time due to its known favorable natural history. A T12 kyphoplasty should be a less invasive procedure to help with her pain related to the subacute T12 compression fracture but will likely not do anything for the disc herniation. I am of the opinion that the kyphoplasty should be tried to see if it helps and if she still has continued persistent symptoms, consideration for further treatment of the discoloration may be possible. I agree with Dr. Galvan's recommendation for a detailed kyphoplasty this afternoon. I will assist him in the OR for this procedure. Postprocedure, a TLSO brace may be considered if she continues to have axial pain, but will not be needed if she has good relief from the procedure. Hopefully with physical therapy she should regain her mobility and ambulation. I went over all risks benefits and alternatives to the T12 kyphoplasty procedure with the patient. The risks include but are not limited to infection, bleeding, hematoma formation, spinal cord or nerve root injury, cement extravasation, cement embolism, hypertension, cardiopulmonary event, need for further procedures or surgeries DVT, pulmonary embolism. I feel the benefits of the procedure will outweigh the risks. Patient was in agreement. (2) Intractable back pain: PLAN: See above (3) Spinal stenosis of lumbar region: QUALIFIERS: Neurogenic claudication status: without neurogenic claudication Qualified Code(s): M48.061 - Spinal stenosis, lumbar region without neurogenic claudication PLAN: MRI does show multilevel degenerative stenosis in the lumbar spine. Patient does not have any neurologic symptoms in the lower extremities consistent with the stenosis and the severity of the stenosis not severe enough to consider any surgical intervention for the same. Charges/Coding Visit Charges Inpatient E&M: 23233 Init Hosp L3
--- NOTE | 2023-05-29 10:59 | CASEMGMT ---
Met with patient to complete [employer]IR[employer]O form. ALT[employer]IR[employer]O form explained to patient who voiced understanding and signed form. Original form placed in pt?s chart and copy provided to patient. Bette Garza, Discharge Planning Asst.?
--- NOTE | 2023-05-29 12:51 | NURSING ---
pt to surgery
--- NOTE | 2023-05-29 13:55 | RAD_ITS ---
CLINICAL HISTORY: Female, 87 years old. T12 kyphoplasty. PROCEDURE: KYPHOPLASTY - T12 FLUOROSCOPY TIME (if supplied): (2 minutes and 37 seconds.) minutes/seconds. 15.96 mGy. 10 spot images were submitted. TECHNIQUE: (All elements of maximal sterile barrier technique followed, including US elements as applicable) RAD/Thoracic Spine 2 Views IMPRESSION: Intraoperative imaging provided for kyphoplasty of the T12 vertebrae. Electronically Signed: Justen Norton MD at 9:38 EDT ,
--- NOTE | 2023-05-29 14:03 | CASEMGMT ---
Discharge Planning A list of?HH?providers including quality and resource use data and consistent with the patient's preferred geographic region, medical needs, and insurance network was created in [employer] Guide.? This list was provided to the RN PERCY. Bette Garza, Discharge Planning Asst.
[2023-05-29] MEDS: Cefazolin 2 GM in 0.9% Normal Saline (100mL Bag) 100 ML IV (14:24)
[2023-05-29] MEDS: Lidocaine 0.5% (50 ml) 50 ML Vial (14:45)
[2023-05-29] MEDS: Bupivacaine Mpf 0.5% 30 ML VIAL (15:19)
--- NOTE | 2023-05-29 15:50 | OP.PCM_ITS ---
Problems Associated Problem List Diagnoses (1) Compression fracture: (2) Intractable back pain: Report of Operation Pre-Operative Diagnosis: T12 vertebral fracture Post-Operative Diagnosis: T12 vertebral fracture Surgery/Procedure Performed:: T12 kyphoplasty Surgeon: Kishore Galvan architecture consultant: None (Dr. Jad Kwon: CO-Surgeon) Type of Anesthesia: MAC Anesthesiologist: Harvey Hardy Specimen's removed: None Drains: None Estimated Blood Loss (mL): 5 Description of Procedure: PROCEDURE:?The patient was brought to the operating room/radiology suite and patient was positioned prone on the Daniel table. MAC anesthesia was induced. The back was prepped and draped. The image intensifier (C-arm) was brought into position and the T12 pedicles were identified and marked with a skin marker. In view of the collapse of T12, a transpedicular approach to the vertebral body was appropriate. An 10-gauge needle was advanced through the T12 pedicle to the junction of the pedicle and vertebral body on the left side to about [address] medial and anterior from the lateral and posterior aguayo of the vertebral body. Positioning was confirmed on the AP and lateral plane. AP and lateral images were taken to verify position and trajectory. Once I was at the junction of the pedicle and the vertebral body, a lateral image was taken to insure that the cannula was positioned approximately 1cm past the vertebral body wall. The needle was then removed leaving the guide trochar in place. The same procedure was performed on the right side. Biopsy was attempted through each trochar, but no sample was able to be withdrawn. Through the cannula, a drill was advanced into the vertebral body under fluoroscopic guidance toward the anterior cortex, creating a channel. After completing the entry into the vertebral body, 15 mm inflatable balloon was inserted through the right cannula and advanced under fluoroscopic guidance into the vertebral body near the anterior cortex. The radiopaque marker bands on the balloon was identified using AP and lateral images. The above sequence of instrument placement was then repeated on the left side of the T12 vertebral body. Once both balloons were in position. Expansion of the balloons was done sequentially in increments of 0.25 to 0.5 cc of contrast, with careful attention being paid to the inflation pressures and balloon position. The inflation was monitored with AP and lateral imaging. The final balloon volume was 4 cc on the right side and 2 cc on the left. There was no breach of the lateral wall or anterior cortex of the vertebral body. Direct reduction of the fracture was achieved, end plate movement was noted. Once the bone cement had hardened, the cannulas were then removed. Imaging was then used to confirm no cement was trailing out of the cannula. Post-procedure, all incisions were closed with steristrips, 4x4 and tegaderm. The patient was kept in the prone position for approximately 10 minutes post cement injection. She was then turned supine, monitored briefly and returned to the floor. She was moving both her lower extremities at this time. Throughout the procedure, there were no intraoperative complications. Estimated blood loss was minimal. Complications None
[2023-05-29] MEDS: Methenamine Hippurate 1 GM Tablet PO (17:01)
[2023-05-29] MEDS: tiZANidine HCl 2 MG Tablet PO (21:31)
[2023-05-30 00:24] VITALS: BP 141/89; PULSE 92; RESP 16; TEMP 36.8; O2SAT 95
[2023-05-30 04:24] VITALS: BP 146/83; PULSE 94; RESP 16; TEMP 36.8; O2SAT 95
[2023-05-30] MEDS: Acetaminophen 500 MG Tablet 1000 MG PO ×2 (05:17→14:07)
[2023-05-30] MEDS: Levothyroxine 50 MCG Tablet PO (05:17)
[2023-05-30 07:02] LABS: Absolute Lymphocyte Count 0.61 X10^3/uL (0.83-4.51); Absolute Neutrophil Count 5.5 X10^3/uL (2.0-7.7); Hematocrit 37.4 % (37-47); Hemoglobin 12.4 g/dL (12.0-15.0); Lymphocyte # 0.61 X10^3/ul (0.83-4.51); Lymphocyte % 9.5 % (19-41); Mean Corp Hgb Conc 33.2 g/dL (32-36); Mean Corpuscular Hgb 29.4 pg (27.0-32.0); Mean Corpuscular Volume 88.6 fL (81-99); Mean Platelet Vol. 9.6 fl (6.2-12.0); Monocyte# 0.23 X10^3/uL; Monocyte% 3.6 % (0-10); NRBC Flagged by Analyzer 0 % (0-5); Neutrophil # 5.51 X10^3/uL (2.7-7.7); Neutrophil % 86.3 % (47-70); Platelet Count 217 K/mm3 (150-450); RBC Distribution Width CV 12.9 % (11.6-14.6); RBC Distribution Width SD 41.7 fl (35.1-43.9); Red Blood Count 4.22 M/mm3 (4.2-5.4); White Blood Count 6.4 K/mm3 (4.4-11.0)
[2023-05-30 07:38] LABS: Anion Gap 6 (5-15); BUN 29 mg/dL (7-18); BUN/Creat Ratio 28.2 RATIO (10-20); Calcium,Total 8.8 mg/dL (8.5-10.1); Chloride 110 mmol/L (98-107); Creatinine, Serum 1.03 mg/dL (0.55-1.02); EST Glomerular Filtration Rate 54 mL/min (>60); Est Glom Filt Rate - Afr Amer 65 mL/min (>60); Estimated Creatinine Clearance 34.48 ml/min; Glucose 131 mg/dL (74-106); Potassium 4.1 mmol/L (3.5-5.1); Sodium Level 141 mmol/L (136-145)
--- NOTE | 2023-05-30 07:55 | PCM.PN.HOSP ---
Reason for Visit Reason for Visit: Diagnoses Spinal stenosis, lumbar region without neurogenic claudication (05/27/23) Dorsalgia, unspecified (05/27/23) Subjective Subjective Patient is an 87-year-old lady who presented with intractable low back p Objective Data Objective Data Vital Signs: Vital Signs Temp Pulse Resp BP Pulse Ox O2 Del Method O2 Flow Rate 98.3 F 94 16 146/83 H 95 Room Air 2 05/30/23 04:24 05/30/23 04:24 05/30/23 04:24 05/30/23 04:24 05/30/23 04:24 05/30/23 04:24 05/30/23 00:24 Oxygen Flow Rate (L/min) 2 Oxygen Delivery Method Room Air Weight: 68.2 kg Body Mass Index (BMI) 25.8 Intake & Output: Intake and Output for Last 24 Hours 05/28/23 05/29/23 05/30/23 23:59 23:59 23:59 Intake Total 1500 / 1500 1360 / 1360 Output Total 500 / 500 1000 / 1000 400 / 400 Balance 1000 / 1000 360 / 360 -400 / -400 Lab / Micro Data 05/30/23 06:37 05/30/23 06:37 Labs: Laboratory Results - last 24 hr 05/30/23 06:37: WBC 6.4, RBC 4.22, Hgb 12.4, Hct 37.4, MCV 88.6, MCH 29.4, MCHC 33.2, RDW Std Deviation 41.7, RDW Coeff of Paula 12.9, Plt Count 217, MPV 9.6, Immature Gran % (Auto) 0.600, Neut % (Auto) 86.3 H, Lymph % (Auto) 9.5 L, [place] % (Auto) 3.6, Eos % (Auto) 0.0, Baso % (Auto) 0.0, Absolute Neuts (auto) 5.5, Absolute Lymphs (auto) 0.61 L, Nucleated RBC % 0, Sodium 141, Potassium 4.1, Chloride 110 H, Carbon Dioxide 25.0, Anion Gap 6, BUN 29 H, Creatinine 1.03 H, Estim Creat Clear Calc 34.48, Est GFR (MDRD) Af Amer 65, Est GFR (MDRD) Non-Af 54 L, BUN/Creatinine Ratio 28.2 H, Glucose 131 H, Calcium 8.8 Physical Exam Narrative GENERAL: cooperative HEENT: Atraumatic; normocephalic EYES; Anicteric, Normal Conjunctiva NECK; supple, normal thyroid, RESPIRATORY: Diminished to auscultation CARDIOVASCULAR: Regular S1 S2, GI: soft, normoactive bowel sounds, : No Renal angle tenderness; EXTREMITIES: No edema, no clubbing, MUSCULOSKELETAL: no muscle wasting NEURO: Awake; no lateralizing signs. SKIN: No Rash PSYCH; Flat affect Assessment & Plan Assessment/Plan (1) Intractable back pain: PLAN: Plan Patient is an 87-year-old lady who presented with intractable low back pain 1. Intractable lower back pain w/ hx of chronic T12 and L4 compression fractures ? Patient underwent kyphoplasty by Dr. Kishore Galvan on 05/29/2023 2. Chronic kidney disease stage IIIb ? Kidney function at baseline 3. Leukocytosis ?Thought to be reactive resolved. 4. DVT prophylaxis ? Bilateral s overall evaluation,decision-making process, review of diagnostic data, adjustment of management, discussion with other providers, nursing and ancillary staff involved in patient's care documentation, 36 minutes. Charges/Coding Visit Charges Inpatient E&M: 54597 Subs Hosp L2
[2023-05-30] MEDS: Ascorbic Acid 500 MG Tablet 1000 MG PO (09:43)
[2023-05-30] MEDS: Calcium Carbonate 500 MG Tablet PO (09:43)
[2023-05-30] MEDS: Pantoprazole Sodium 40 MG Tablet PO (09:43)
[2023-05-30] MEDS: Cholecalciferol (VIT D3) 25 MCG TABLET (1,000 UNITS) 50 MCG PO (09:43)
[2023-05-30] MEDS: hydroCHLOROthiazide 12.5mg 12.5 MG PO (09:44)
[2023-05-30] MEDS: Methenamine Hippurate 1 GM Tablet PO (09:44)
[2023-05-30] MEDS: Calcitonin-Salmon 1 SPRAY SPRAY NARES (09:44)
[2023-05-30] MEDS: Losartan Potassium 25 MG Tablet PO (09:44)
[2023-05-30] MEDS: amLODIPine 5 MG Tablet PO (09:45)
[2023-05-30] MEDS: Paroxetine 20 MG Tablet 40 MG PO (09:45)
[2023-05-30 09:58] VITALS: BP 138/79; PULSE 88; RESP 16; TEMP 36.8; O2SAT 96
--- NOTE | 2023-05-30 10:52 | DS.PCM_ITS ---
Providers Date of Admission: 05/27/23 Date of Discharge: 06/17/23 Primary Care Physician: Bell Gaffney, CHIRAG Consultations 05/27/23 22:10 Consult: Pain Management Routine Consulting Provider: Kishore Galvan Reason for Consult: Back pain EMERGENT Consult: No Notified: Yes Date Notified: 05/27/23 Time Notified: 21:38 Method of Notification: ED Physician Initiated 05/28/23 16:06 Consult: Orthopedics Routine Consulting Provider: Jad Kwon Reason for Consult: possible kyphoplasty EMERGENT Consult: No Notified: Yes Date Notified: 05/28/23 Time Notified: 16:07 Method of Notification: Verbal Reason For Visit: INTRACTABLE BACK PAIN Diagnosis Discharge Diagnosis (1) Intractable back pain: Status: Acute Code(s): M54.9 - Dorsalgia, unspecified Plan Patient is an 87-year-old lady who presented with intractable low back pain 1. Intractable lower back pain w/ hx of chronic T12 and L4 compression fractures ? Patient underwent kyphoplasty by Dr. Kishore Galvan on 05/29/2023 2. Chronic kidney disease stage IIIb ? Kidney function at baseline 3. Leukocytosis ?Thought to be reactive resolved. 4. DVT prophylaxis ? Bilateral s overall evaluation,decision-making process, review of diagnostic data, adjustment of management, discussion with other providers, nursing and ancillary staff involved in patient's care documentation, 36 minutes. Medications at Discharge Home Medications Omeprazole [Prilosec] 40 mg PO DAILY 08/23/14 amlodipine 5 mg tablet 5 mg PO DAILY 08/23/14 paroxetine HCl 40 mg tablet (Paxil) 40 mg PO DAILY 08/23/14 albuterol sulfate 90 mcg/actuation aerosol inhaler (ProAir HFA) 1 puff inhalation DAILY PRN sob 12/04/17 calcium carbonate 600 mg calcium (1,500 mg) tablet 600 mg PO DAILY 12/04/17 cholecalciferol (vitamin D3) 50 mcg (2,000 unit) chewable tablet 2,000 unit PO BID 12/04/17 levothyroxine 50 mcg tablet 50 mcg PO DAILY 12/04/17 pyridoxine (vitamin B6) 25 mg tablet (Vitamin B-6) 25 mg PO DAILY 12/04/17 triamcinolone acetonide 55 mcg nasal spray aerosol (Nasacort) 1 spray NS DAILY 12/04/17 oxycodone-acetaminophen 5 mg-325 mg tablet 1 tab PO Q6H PRN PRN pain 5 days #20 TABLETS 05/19/23 ascorbic acid (vitamin C) 500 mg tablet (Vitamin C) 1 g PO DAILY 05/27/23 calcitonin (salmon) 200 unit/actuation nasal spray 1 spray intranasal (ALT) DAILY PRN see 05/27/23 hydrochlorothiazide 12.5 mg capsule 12.5 mg PO DAILY 05/27/23 losartan 25 mg tablet 25 mg PO DAILY 05/27/23 methenamine hippurate 1 gram tablet 1 g PO DAILY PRN prevent uti 05/27/23 rosuvastatin 5 mg tablet 5 mg PO QODAY 05/27/23 tizanidine 2 mg tablet 1 mg PO QHS 05/27/23 Hospital Course Summary of Care Provided Minutes Spent on Discharge: 35 Physical Exam Narrative GENERAL: cooperative HEENT: Atraumatic; normocephalic EYES; Anicteric, Normal Conjunctiva NECK; supple, normal thyroid, RESPIRATORY: Diminished to auscultation CARDIOVASCULAR: Regular S1 S2, GI: soft, normoactive bowel sounds, : No Renal angle tenderness; EXTREMITIES: No edema, no clubbing, MUSCULOSKELETAL: no muscle wasting NEURO: Awake; no lateralizing signs. SKIN: No Rash PSYCH; Flat affect Weight / BMI Weight Weight: 68.2 kg Body Mass Index (BMI) 25.8 ABG / Lab / Microbiology Data 05/30/23 06:37 05/30/23 06:37 Laboratory: Laboratory Results - last 24 hr 05/30/23 06:37: WBC 6.4, RBC 4.22, Hgb 12.4, Hct 37.4, MCV 88.6, MCH 29.4, MCHC 33.2, RDW Std Deviation 41.7, RDW Coeff of Paula 12.9, Plt Count 217, MPV 9.6, Immature Gran % (Auto) 0.600, Neut % (Auto) 86.3 H, Lymph % (Auto) 9.5 L, [place] % (Auto) 3.6, Eos % (Auto) 0.0, Baso % (Auto) 0.0, Absolute Neuts (auto) 5.5, Absolute Lymphs (auto) 0.61 L, Nucleated RBC % 0, Sodium 141, Potassium 4.1, Chloride 110 H, Carbon Dioxide 25.0, Anion Gap 6, BUN 29 H, Creatinine 1.03 H, Estim Creat Clear Calc 34.48, Est GFR (MDRD) Af Amer 65, Est GFR (MDRD) Non-Af 54 L, BUN/Creatinine Ratio 28.2 H, Glucose 131 H, Calcium 8.8 D/C Instructions Discharge Diet: No restrictions Discharge Activity: Return to Normal Activity Call your doctor if you observe: Fever of 101 or Higher, Shortness of breath, Fainting spells and Chest pain Meaningful Use Info Meaningful Use Diagnoses (Choose all that apply): None applicable Discharge Plan Admission Admit Date/Time: 05/27/23 21:31 Attending Provider: Bakari Aguero Primary Care Provider: Bell Gaffney Consulting Providers: Aldair Birch; Jad Kwon; Kishore Galvan; Janine Vergara; Bakari Aguero Discharge Orders/Prescriptions Prescriptions: Continued amlodipine 5 MG tablet 5 mg PO DAILY Patient Comments: ELEVATED BLOOD PRESSURE paroxetine HCl [Paxil] 40 MG tablet 40 mg PO DAILY Patient Comments: DEPRESSION Omeprazole [Prilosec] 40 MG capsule 40 mg PO DAILY Patient Comments: STOMACH/INDIGESTION pyridoxine (vitamin B6) [Vitamin B-6] 25 MG tablet 25 mg PO DAILY calcium carbonate 600 MG tablet 600 mg PO DAILY levothyroxine 50 MCG tablet 50 mcg PO DAILY triamcinolone acetonide [Nasacort] 1 SPRAY aerosol,spray 1 spray NS DAILY albuterol sulfate [ProAir HFA] 1 PUFF inhaler 1 puff inhalation DAILY PRN (Reason: sob) cholecalciferol (vitamin D3) 2,000 UNIT tablet,chewable 2,000 unit PO BID oxycodone-acetaminophen 5-325 mg tablet 1 tab PO Q6H PRN PRN (Reason: pain) 5 Days Qty: 20 0RF hydrochlorothiazide 12.5 mg capsule 12.5 mg PO DAILY losartan 25 mg tablet 25 mg PO DAILY methenamine hippurate 1 gram tablet 1 g PO DAILY PRN rosuvastatin 5 mg tablet 5 mg PO QODAY Hold Instructions: pt doesnt want it tizanidine 2 mg tablet 1 mg PO QHS ascorbic acid (vitamin C) [Vitamin C] 500 mg tablet 1 g PO DAILY calcitonin (salmon) 200 unit/actuation spray,non-aerosol 1 spray intranasal (ALT) DAILY PRN (Reason: see md) Discontinued oxycodone 5 mg tablet 5 mg PO Q6H Rx Instructions: as needed for pain Referrals / Follow Up: Bell Gaffney ORTHOPEDIC PHYSICIAN-C [Primary Care Provider] - Disposition Disposition (needs filled in before D/C Order can be placed): Home, Self Care Charges/Coding Visit Charges Inpatient E&M: 94999 Disch Hosp >30min
--- NOTE | 2023-05-30 11:50 | CASEMGMT ---
Addendum entered by Rocio Bernal 05/30/23 12:17: Pt would like outpatient PT/OT. Script for outpatient Pt/OT prepared and sent to Dr. Aguero for his signature. Original Note: KAVITA GREER in to patient room to discuss desire for HHC/ HHC preferences. Pt. states she is not interested in having any type of HHC at this time. She states she would prefer to go somewhere outside of her home for her PT/OT, as she does think she needs these services to help her regain some strength. She is agreeable to still taking the HHC list to review. A list of HHC providers including quality and resource use data and consistent with the patient?s preferred geographical region, medical needs, and insurance network were provided from the [employer] Guide. Pt. reiterates that she would just like to go home. KAVITA GREER acknowledged this and validated pt. Pt. denies having further questions/concerns at this time.
[2023-05-30 14:52] VITALS: BP 134/73; PULSE 85; RESP 16; TEMP 36.6; O2SAT 95
== END 2023-05-30 15:16 | disposition home or self-care (01) ==
LOC: ED 20:32 → MS3 21:58
PROVIDERS: Anesthesiology; Internal Medicine; Admitting Provider Hospitalist; Emergency Provider Emergency Medicine; PCP Nurse Practitioner Family; Visit Provider Internal Medicine
PROC: (CPT 22513; principal; 2023-05-29 13:45)
DX: M80.08XA Age-related osteoporosis with current pathological fracture, vertebra(e), initial encounter for fracture (principal); N18.32 Chronic kidney disease, stage 3b; E07.9 Disorder of thyroid, unspecified; G89.29 Other chronic pain; M48.061 Spinal stenosis, lumbar region without neurogenic claudication; M62.830 Muscle spasm of back; I12.9 Hypertensive chronic kidney disease with stage 1 through stage 4 chronic kidney disease, or unspecified chronic kidney disease; M19.90 Unspecified osteoarthritis, unspecified site; Z79.899 Other long term (current) drug therapy; Z79.891 Long term (current) use of opiate analgesic; Z79.890 Hormone replacement therapy
CPT/HCPCS: 22513; 01941; 36415; 72070; 72100; 72148; 76000; 80048; 81001; 84443; 85025; 93005; 96361; 96374; 96375; 96376; 97110; 97116; 97162; 97165; 97530; 99221; 99285; J7030; A4216; G0378; J2405

== ENCOUNTER 2023-08-18 15:00 | Outpatient (RCR) | payer MEDICARE, SELFPAY ==
--- NOTE | 2023-08-14 15:48 | HP.PTEVAL_ITS ---
Patient's Visit Information Visit Information Visit Information: LINDSAY SALDIVAR is a 87 year old F referred to Physical Therapy by Dr. Kishore Galvan MD with a diagnosis of MYALGIA ,SPASMS. Date of Evaluation: 08/14/23 Physical Therapist: Jack Larson, PT, Cert MDT, OCS Visit Plan Frequency: 2x /Week Duration: 4 Weeks Plan: S/P KYPHOPLASTY T12 PT INTERVENTIONS POSTURAL EX'S ,DLS , FUNCTIONAL STRENGTHENING BLE ,ENDURANCE PROGRAM AND BALANCE TRAINING Subjective Subjective: This 87 y/o female presents to physical therapy with mid back pain. Patient kyphoplasty T12 on May 29 done [facility] at [facility] . Patient was in hospital for 3 days . Patient had MRI showed T 12 compression fx and old compression fx ,extrusion disc.. Patient has h/o osteoporosis . Patient has not been taking medication. Patient seen DT yesterday and did steriod injection. Pain located located LS . Patient taking just teylonal. Aggravating factors standing 15 mins and walking with cane ,difficulty lifting. Alleviating rest ,heat. Denies paresthesia/tingling-. Coughing/sneezing-. Bowel/bladder -. Sleeping okay. Patient pain affects and function. Patient had h/o falls in summer. Patient condition affects QOL and function. Patient gaols to decrease pain SOCIAL: RETIRED: Pain Bilateral Back: Pain Intensity (Out of 10): 2 Pain Intensity Range: 10 Objective Objective: POSTURE: mod thoracic kyphosis GAIT: reciprocal pattern with cane mild forward posture 2 point gait SYMMTRIES: align PALAPTION: unremarkable MMT: quads/hams 4/5 ,hip flexion 4-/5 ,ankle 4/5 LUMBAR ROM: flexion mod loss ,extension mod loss ,side glides mod loss FLEXABLITY: hamstrings min tight Special Tests L/S Slump test left side: Negative L/S Slump test right side: Negative L/S Left Straight Leg Raise: Negative L/S Right Straight Leg Raise: Negative Balance/Special Test Scores Oswestry Low Back Score: 29 Goals Goal 1:: Patient to be I with HEP for back Goal Time Frame: 4-6 Weeks Goal 2:: Patient to demonstrate 50 % improvement with less pain and improved function. Goal Time Frame: 4-6 Weeks Goal 3:: Patient to improve lumbar ROM for function of recovery for ADLS Goal Time Frame: 4-6 Weeks Goal 4:: Patient to improve back oswestry score by 5 point to improve QOL and function Goal Time Frame: 4-6 Weeks Goal 5:: Patient be able to perform Housework tasks and ADLS with min limitations Goal Time Frame: 4-6 Weeks Rehabilitation Potential Physical Therapy Diagnosis: This patient had compression fx T12 with kyphoplasty and L2-5 compression fx with decrease gait ,balance ,and weakness thus benefit from skilled PT Rehabilitation Potential: Good Anticipated Interventions Patient/Client Instruction: Educate patient on: Condition, Plan of Care and Risk Factors For the Purpose of:: To decrease pain, To increase ROM, To increase tolerance to activity/condition/position, To improve performance and independence with ADL's, To improve ability of physical actions for home/community/work/leisure, To improve health of tissue, To decrease soft tissue restriction, To increase flexibility/ROM and To improve tolerance to ADL's Therapeutic Exercise to Include: Strength training, Endurance training, Balance training, Body mechanics, Postural training, Flexibilty training and Dynamic Lumbar Stabilization Comment: BLE For the Purpose of:: To decrease pain, To increase ROM, To improve muscle performance and motor function, To increase tolerance to activity/condition/position, To improve ability of physical actions for home/community/work/leisure, To improve health of tissue, To decrease soft tissue restriction, To increase flexibility/ROM, To improve balance, To reduce risk of recurrence and To improve tolerance to ADL's Text: Thank you for the opportunity to evaluate your patient. For Medicare and Medicare HMO plans, please review the plan of care and approve it. It will need to be FAXED BACK to us at [phone] for Medicare purposes. For Medicare only, by signing this I certify the plan of care. Please let me know if there are questions or concerns regarding this plan of care. Physician Signature: Date:
--- NOTE | 2023-11-30 12:03 | HP.PT.NRP ---
Patient Information Patient Information: LINDSAY SALDIVAR was seen in my office for initial evaluation on 08/14/23. The following Plan of Care was established for this patient: POC Established Initial Frequency: 2x /Week Initial Duration: 4 Weeks Anticipated Interventions Patient/Client Instruction: Educate patient on: Condition, Plan of Care and Risk Factors For the Purpose of:: To decrease pain, To increase ROM, To increase tolerance to activity/condition/position, To improve performance and independence with ADL's, To improve ability of physical actions for home/community/work/leisure, To improve health of tissue, To decrease soft tissue restriction, To increase flexibility/ROM and To improve tolerance to ADL's Therapeutic Exercise to Include: Strength training, Endurance training, Balance training, Body mechanics, Postural training, Flexibilty training and Dynamic Lumbar Stabilization For the Purpose of:: To decrease pain, To increase ROM, To improve muscle performance and motor function, To increase tolerance to activity/condition/position, To improve ability of physical actions for home/community/work/leisure, To improve health of tissue, To decrease soft tissue restriction, To increase flexibility/ROM, To improve balance, To reduce risk of recurrence and To improve tolerance to ADL's Last Seen Last Seen: This patient was last seen in our office . Pertinent comments regarding their Physical therapy will appear below: Patient seen for PT for thoracic kyphoplasty for HEP. At this point I will be discontinuing this patient from physical therapy. I would be happy to see this patient again in the future if found appropriate by the physician. Thank you! Jack Larson, PT, Cert MDT, OCS Balance/Gait/Functional tests Balance/Special Test Scores Oswestry Low Back Score: 29
== END 2023-08-18 19:00 | disposition home or self-care (01) ==
LOC: PT 15:00
PROVIDERS: PCP Nurse Practitioner Family; Referring Provider Anesthesiology; Visit Provider Anesthesiology
DX: M46.1 Sacroiliitis, not elsewhere classified (principal); R25.2 Cramp and spasm; M79.10 Myalgia, unspecified site
CPT/HCPCS: 97110; 97112; 97162

== ENCOUNTER → 2023-11-05 | Outpatient (CLI) | payer MEDICARE, SELFPAY ==
--- NOTE | 2023-11-05 14:46 | BD_ITS ---
STUDY: DUAL ENERGY X-RAY ABSORPTIOMETRY / DXA REASON FOR EXAM: Female, 87 years old. 733.00OsteoporosisBONE DENSITY REASON FOR EXAM TECHNIQUE: Bone Mineral Density (BMD) measurements of lumbar spine and bilateral hips were obtained. COMPARISON: Comparison is made with prior study dated August 14, 2020. FINDINGS: Lumbar Spine (L1-L4): g/cm2 (0.623) / T-score (-3.9) / Z-score (-1.0) Findings are suggestive of osteoporosis with a high fracture risk. Left Femur Total: g/cm2 (0.675) / T-score (-2.2) / Z-score (0.1) Left Femoral Neck: g/cm2 (0.579) / T-score (-2.4) / Z-score (0.1) Right Femur Total: g/cm2 (0.679) / T-score (-2.2) / Z-score (0.2) Right Femoral Neck: g/cm2 (0.483) / T-score (-3.3) / Z-score (-0.8) The T-Scores on the most recent prior examination were: Lumbar Spine (L1-L4): There has been worsening of bone density since the previous examination. Left Femur Total: which represents a worsening of 2.1%. Right Femur Total: which represents an improvement of 0.1%. BD/Dexa Bone Density Study IMPRESSION: The patient is considered osteoporotic as outlined below according to World Anthony Organization (WHO) criteria with a high fracture risk. There has been worsening of bone density since the previous examination. Reference Information: The T-score is the number of standard deviations above or below the standard which is normal for young adults at their peak bone mineral density. The World Health Organization (WHO) interprets the T-scores as follows: Above -1 Normal bone density Between -1 and -2.5 Osteopenia Equal to / or below -2.5 Osteoporosis As a practical clinical guideline, osteopenia may be graded as follows: Mild -1 through -1.5 Moderate -1.6 through -2.0 Severe -2.1 through -2.4 The Z-score is the number of standard deviations above or below age-matched controls. A Z-score of less than -1.5 would be considered abnormal. References: 1. NIH Osteoporosis and Related Bone Diseases www osteo.org 2. International Society for Clinical Densitometry www iscd.org 3. National Osteoporosis Foundation www nof.org Electronically Signed: Justen Norton MD at 14:54 EDT ,
== END | disposition home or self-care (01) ==
LOC: OPBD 14:42
PROVIDERS: PCP Nurse Practitioner Family; Referring Provider Nurse Practitioner Family; Visit Provider Nurse Practitioner Family
DX: M81.0 Age-related osteoporosis without current pathological fracture (principal)
CPT/HCPCS: 77080

== ENCOUNTER → 2024-10-21 | Outpatient (CLI) | payer MEDICARE, SELFPAY ==
--- NOTE | 2024-10-21 13:44 | CT_ITS ---
PROCEDURE: CT ABD/PELVIS W/WO CONTRAST REASON FOR EXAM: Microscopic hematuria. Left renal cyst. TECHNIQUE: Abdomen and pelvis CT with intravenous contrast. No oral contrast. IV CONTRAST: 100 cc of Isovue 300. COMPARISON: Comparison is made with prior study dated May 10, 2023. FINDINGS: Lung bases: Minimal increased linear markings at the lung bases suggestive of atelectasis and/or scarring. There is calcification of the mitral valve annulus as well as coronary artery calcification. Liver: Unremarkable. Gallbladder: Surgically absent. Spleen: Unremarkable. Pancreas: Unremarkable. Adrenals: Unremarkable. Kidneys: There is a 5.6 cm x 5.5 cm cyst in the upper the left kidney. This is stable. Bladder: Unremarkable. Reproductive Organs: The patient is status post hysterectomy. There is a 3.2 cm x 3.3 cm cyst in the left ovary. Bowel: Unremarkable. Appendix: Normal. Lymph nodes: No suspicious lymph node enlargement. Vasculature: Atherosclerotic plaque formation of the aortic arch as well as the major visceral branches. Peritoneum / Retroperitoneum: No ascites. No free air. Bones: Almost complete collapse of the T12 vertebrae. Prior vertebroplasty. Loss of height of the L4 vertebrae. CT/CT Abd/Pelvis W/WO Contrast IMPRESSION: Stable examination. One or more dose reduction techniques were used (e.g., Automated exposure contr ol, adjustment of the mA and/or kV according to patient size, use of iterative reconstruction technique). Reading Location: [id number]
== END | disposition home or self-care (01) ==
LOC: CT 13:42
PROVIDERS: PCP Nurse Practitioner Family; Referring Provider Nurse Practitioner Family; Visit Provider Nurse Practitioner Family
DX: R31.9 Hematuria, unspecified (principal)
CPT/HCPCS: 74178; Q9967

== ENCOUNTER 2025-06-06 15:06 | Emergency (ER) | payer MEDICARE, SELFPAY ==
[2025-06-06] VITALS (8 sets, daily range): BP systolic 98–146; BP diastolic 65–93; PULSE 73–140; RESP 16–18; TEMP 36.6; O2SAT 95–98; BMI 25.9
[2025-06-06 15:44] LABS: Hematocrit 43.6 % (37-47); Hemoglobin 14.5 g/dL (12.0-15.0); Immature Granulocytes Count 0.020 X10^3/uL (0.0-0.0); Mean Corp Hgb Conc 33.3 g/dL (32-36); Mean Corpuscular Volume 86.7 fL (81-99); Mean Platelet Vol. 10.0 fl (6.2-12.0); NRBC Flagged by Analyzer 0 % (0-5); Platelet Count 221 K/mm3 (150-450); RBC Distribution Width CV 13.7 % (11.6-14.6); RBC Distribution Width SD 43.4 fl (35.1-43.9); Red Blood Count 5.03 M/mm3 (4.2-5.4); White Blood Count 9.6 K/mm3 (4.4-11.0)
[2025-06-06 16:28] LABS: Anion Gap 14 (5-15); BUN 38 mg/dL (4-19); BUN/Creat Ratio 23.4 RATIO (10-20); Calcium,Total 9.8 mg/dL (7.6-11.0); Carbon Dioxide 23.1 mmol/L (21.0-32.0); Chloride 102 mmol/L (98-108); Estimated Creatinine Clearance 23.40 ml/min (50-250); Glucose 134 mg/dL (70-99); Magnesium 2.3 mg/dL (1.5-2.2); Potassium 4.0 mmol/L (3.3-5.1); Pro- Brain NATRIURETIC PEPTIDE 3848 pg/mL (<=1800)
[2025-06-06 16:36] LABS: D-Dimer Quantitative (DVT/PE) 0.46 FEU/ug/m (0.27-0.49)
[2025-06-06 17:24] LABS: Troponin T High Sensitivity 34 ng/L (<=14)
[2025-06-06 18:03] LABS: Troponin T High Sens 2 HR 33 ng/L (<=14)
[2025-06-06] MEDS: APIXABAN 2.5 MG TABLET (WCH) PO (19:07)
== END 2025-06-06 19:19 | disposition home or self-care (01) ==
PROVIDERS: Emergency Provider Surgery; PCP Nurse Practitioner Family; Visit Provider Surgery
DX: I48.91 Unspecified atrial fibrillation (principal); R06.09 Other forms of dyspnea; I10 Essential (primary) hypertension; I34.0 Nonrheumatic mitral (valve) insufficiency; E07.9 Disorder of thyroid, unspecified; N28.9 Disorder of kidney and ureter, unspecified; M81.0 Age-related osteoporosis without current pathological fracture; M19.90 Unspecified osteoarthritis, unspecified site; Z79.890 Hormone replacement therapy; Z79.899 Other long term (current) drug therapy
CPT/HCPCS: 71046; 80048; 83735; 83880; 84439; 84443; 84484; 85025; 85379; 93005; 96374; 96376; 99284; A4216

== ENCOUNTER → 2025-06-06 | Outpatient (CLI) | payer MEDICARE, SELFPAY ==
--- NOTE | 2025-06-06 13:53 | ECHOD_ITS ---
Reason For Study Reason For Study: HTN Procedure This was a 2D Doppler, Color Flow transthoracic echocardiogram. Exam performed in department. Left Ventricle Normal size and thickness. Left ventricular systolic function is hyperdynamic. The left ventricular ejection fraction is 70 %. Unable to assess diastolic dysfunction due to arrhythmia. Right Ventricle Normal right ventricle. Atria The left atrium is severely enlarged. The right atrium is moderately enlarged. Mitral Valve Severe mitral annular calcification. Mild-Moderate (1-2+) mitral valve insufficiency. Tricuspid Valve Mild (1+) tricuspid valve insufficiency. Right ventricular systolic pressure estimated to be 45 mmHg. Aortic Valve Trisinus/trileaflet aortic valve. Aortic sclerosis, no stenosis. Pulmonic Valve The pulmonic valve is not well visualized. Great Vessels Normal sized aortic root. Pericardium/Pleural Trivial pericardial effusion. MMode/2D Measurements & Calculations LVIDd: 3.2 cm IVSd: 0.91 cm LVOT diam: 1.7 cm LVIDs: 2.0 cm LVPWd: 0.90 cm LVOT area: 2.2 cm2 RVDd: 2.6 cm FS: 38.4 % asc Aorta Diam: 3.2 cm LAV(MOD-bp): 45.1 ml LVAd ap4: 11.4 cm2 LAV(MOD-bp) Indexed: 26.5 ml/m2 LVLd ap4: 5.1 cm LAV(MOD-sp2): 54.4 ml EDV(MOD-sp4): 21.4 ml LAV(MOD-sp4): 36.6 ml EDV(sp4-el): 21.9 ml LVAs ap4: 5.8 cm2 LVLs ap4: 4.3 cm ESV(MOD-sp4): 7.0 ml ESV(sp4-el): 6.7 ml EF(MOD-sp4): 67.0 % EF(sp4-el): 69.2 % LVAd ap2: 11.9 cm2 SV(MOD-sp4): 14.3 ml SV(MOD-sp2): 14.4 ml LVLd ap2: 5.4 cm SI(MOD-sp4): 8.4 ml/m2 SI(MOD-sp2): 8.5 ml/m2 EDV(MOD-sp2): 20.9 ml EDV(sp2-el): 22.3 ml LVAs ap2: 6.0 cm2 LVLs ap2: 4.5 cm ESV(MOD-sp2): 6.5 ml ESV(sp2-el): 6.7 ml EF(MOD-sp2): 68.7 % SV(sp4-el): 15.2 ml Ao sinus diam: 2.[address] Junction: 2.0 cm LA dimension(2D): 3.5 cm LA A4 area: 16.7 cm2 RA A4 area: 8.8 cm2 TAPSE: 1.4 cm Time Measurements MV dec time: 0.14 sec Doppler Measurements & Calculations MV E max gibson: 148.2 cm/sec Lat Peak E' Gibson: 8.6 cm/sec Med Peak E' Gibson: 8.8 cm/sec E/E' lat: 17.3 E/E' med: 16.9 MV V2 max: 174.8 cm/sec MV P1/2t max gibson: 173.6 cm/sec Ao V2 max: 138.8 cm/sec MV max P.2 mmHg Ao max P.7 mmHg MV V2 mean: 124.9 cm/sec Ao V2 mean: 102.8 cm/sec MV mean P.9 mmHg Ao mean P.7 mmHg MV V2 VTI: 29.1 cm Ao V2 VTI: 24.0 cm MVA(VTI): 1.3 cm2 AV (velocity ratio): 0.69 MONISHA(I,D): 1.5 cm2 MONISHA(V,D): 1.9 cm2 LV V1 max: 118.3 cm/sec SV(LVOT): 36.9 ml PA V2 max: 82.8 cm/sec LV V1 max P.6 mmHg LV V1 mean P.6 mmHg LV V1 mean: 92.8 cm/sec LV V1 VTI: 16.5 cm TR max gibson: 273.0 cm/sec TR max P.8 mmHg ECHO/Echo Complete Interpretation Summary The left ventricular ejection fraction is 70 %. The left atrium is severely enlarged. The right atrium is moderately enlarged. Severe mitral annular calcification. Mild-Moderate (1-2+) mitral valve insufficiency. Mild (1+) tricuspid valve insufficiency. Right ventricular systolic pressure estimated to be 45 mmHg. Ordering Physician: Bell Gaffney Referring Physician: Bell Gaffney Performed By: Joanne Gill RDCS
--- NOTE | 2025-06-06 15:00 | EKG12_ITS ---
Test Reason : TACHYCARDIA Blood Pressure : */* mmHG Vent. Rate : 139 BPM Atrial Rate : 147 BPM P-R Int : * ms QRS Dur : 64 ms QT Int : 322 ms P-R-T Axes : * 12 95 degrees QTcB Int : 489 ms Atrial fibrillation Abnormal ECG Confirmed by Skip Garcia [id number]), department editor MARCOS BERUMEN ([id number]) on 06/07/2025 9:15:36 AM Referred By: Bell Gaffney Confirmed By: Skip Garcia
== END | disposition home or self-care (01) ==
LOC: CVS 13:50
PROVIDERS: PCP Nurse Practitioner Family; Referring Provider Nurse Practitioner Family; Visit Provider Nurse Practitioner Family
DX: R60.0 Localized edema (principal); I10 Essential (primary) hypertension
CPT/HCPCS: 93005; 93306

== ENCOUNTER 2025-06-18 09:02 | Inpatient (IN) | payer MEDICARE, SELFPAY ==
[2025-06-18] VITALS (28 sets, daily range): BP systolic 97–157; BP diastolic 46–91; PULSE 78–119; RESP 15–27; TEMP 36.3–37; O2SAT 89–100; BMI 27.5; BMI 27.4
--- NOTE | 2025-06-18 09:23 | ED.VIS.CHEST ---
HPI History of Present Illness Chief Complaint: Palpitations Informant: patient Onset/Context/Timing Onset: Weeks (1.5) Timing: Continuous Quality: Positive for - (Racing) Location: Substernal Worsened By: Nothing Relieved By: Nothing Associated Symptoms: Positive for Dyspnea and Palpitations; Negative for Nausea, Vomiting, Diaphoresis, Cough, Fever, Lightheadedness or Acid Reflux Narrative Narrative: Patient presents with palpitations that became worse today. Patient states she was recently diagnosed with atrial fibrillation. Patient states she was started on Eliquis when she was diagnosed with. Patient states he feels like her heart is racing. Patient states she feels short of breath when she walks across the room. Patient states nothing makes her symptoms better and nothing makes them worse. Patient denies any cough. Patient denies any fevers or chills. CVD Risk Factors: Negative for Hypertension, Diabetes, Hypercholesterolemia, Family History 1' </=55 or Smoking PE Risk Factors: Negative for Recent Travel/Surgery, Recent Immobilization, Prior DVT or PE, Cancer or OCP + Smoking + >/=35 PFSH PFSH Medical History Anxiety Depression Kidney disease GERD (gastroesophageal reflux disease) Non-smoker Atrial fibrillation Migraines Recurrent UTI Acquired renal cyst Hyperlipidemia Hypothyroidism Osteoporosis Thyroid disease Knee pain Hemorrhoids Arthritis Hypertension Home Medications ?Medication ?Instructions ?Recorded ?Last Taken ?Type Omeprazole [Prilosec] 40 mg PO DAILY 08/23/14 05/27/23 History paroxetine HCl 40 mg tablet (Paxil) 40 mg PO DAILY 08/23/14 05/27/23 History calcium carbonate 600 mg PO DAILY 12/04/17 05/27/23 History cholecalciferol (vitamin D3) 50 2,000 unit PO BID 12/04/17 05/27/23 History mcg (2,000 unit) chewable tablet levothyroxine 50 mcg tablet 50 mcg PO DAILY 12/04/17 05/27/23 History triamcinolone acetonide 55 mcg 1 spray NS DAILY 12/04/17 Unknown History nasal spray aerosol (Nasacort) ascorbic acid (vitamin C) 500 mg 1 g PO DAILY 05/27/23 05/27/23 History tablet (Vitamin C) calcitonin (salmon) 200 1 spray intranasal (ALT) DAILY PRN 05/27/23 Unknown History unit/actuation nasal spray see md hydrochlorothiazide 12.5 mg capsule 12.5 mg PO DAILY 05/27/23 05/27/23 History tizanidine 2 mg tablet 1 mg PO QHS 05/27/23 05/26/23 History albuterol sulfate 90 mcg/actuation 1 puff inhalation DAILY PRN sob 06/07/25 Unknown History aerosol inhaler (ProAir HFA) methenamine hippurate 1 gram tablet 1 g PO QDAY PRN prevent uti 06/07/25 Unknown History diltiazem HCl 360 mg 360 mg PO QDAY #90 caps 06/08/25 Unknown Rx capsule,extended release 24 hr (Cardizem CD) apixaban 2.5 mg tablet (Eliquis) 2.5 mg PO .COMPLEX #180 tabs 06/13/25 Unknown Rx Allergy/AdvReac Type Severity Reaction Status Date / Time rosuvastatin Allergy severe Verified 06/18/25 09:03 myalgias Sulfa (Sulfonamide Allergy Rash Verified 06/18/25 09:03 Antibiotics) amoxicillin (From Augmentin) AdvReac Diarrhea Verified 06/18/25 09:03 belladonna alkaloids AdvReac Other Verified 06/18/25 09:03 clavulanic acid (From AdvReac Diarrhea Verified 06/18/25 09:03 Augmentin) Family History Sister Hypertension Sister Hypertension Father CVA (cerebral vascular accident) Hypertension Mother Hypertension Anxiety disorder Brother Hypertension Surgical History H/O colonoscopy History of surgery History of carpal tunnel surgery H/O lumpectomy Hx of cholecystectomy H/O: hysterectomy Social History household members: spouse Smoking Status: Never smoker substance use type: does not use ROS ROS ED Constitutional Constitutional ED: Denies chills or fever(s) Eyes Eyes: Denies blurry vision or change in vision ENT ENT ED: Reports rhinorrhea; Denies sore throat Cardiovascular Cardiovascular: Reports palpitations and racing heartbeat; Denies chest pain Respiratory/Chest Respiratory/Chest: Reports dyspnea and dyspnea on exertion; Denies cough Gastrointestinal Gastrointestinal: Denies nausea or vomiting Genitourinary Genitourinary ED: Denies dysuria or hematuria Musculoskeletal Musculoskeletal: Denies back pain or neck pain Integumentary Denies abscess or rash Neurologic Neurologic: Reports headache(s); Denies weakness Allergic/Immunologic Allergic/Immunologic ED: Denies mouth swelling or urticaria EXAM Physical Exam Const Vital Signs: 06/18/25 09:03 06/18/25 09:17 06/18/25 10:14 Temperature 98.6 F Temperature Source Oral Pulse Rate 119 H 117 H Respiratory Rate 20 H 23 H Respiratory Pattern Tachypnea Blood Pressure 157/80 H 139/86 H Blood Pressure Mean 105 103 Pulse Ox 98 94 Oxygen Delivery Method Room Air 06/18/25 11:00 06/18/25 12:00 06/18/25 12:30 Temperature Temperature Source Pulse Rate 88 88 Respiratory Rate 15 Respiratory Pattern Blood Pressure 106/68 126/91 H Blood Pressure Mean 79 103 Pulse Ox 93 92 94 Oxygen Delivery Method 06/18/25 12:45 06/18/25 13:00 06/18/25 13:00 Temperature Temperature Source Pulse Rate 119 H 78 Respiratory Rate 22 H 18 Respiratory Pattern Blood Pressure 112/70 132/77 H 127/67 H Blood Pressure Mean 83 95 85 Pulse Ox 94 92 Oxygen Delivery Method Room Air 06/18/25 13:15 06/18/25 13:15 06/18/25 13:30 Temperature Temperature Source Pulse Rate 78 82 Respiratory Rate 15 17 Respiratory Pattern Blood Pressure 125/69 H 125/69 H 124/73 H Blood Pressure Mean 85 85 84 Pulse Ox 92 90 Oxygen Delivery Method 06/18/25 13:47 06/18/25 13:55 06/18/25 14:00 Temperature Temperature Source Pulse Rate 119 H 118 H Respiratory Rate 18 22 H Respiratory Pattern Blood Pressure 132/77 H 122/75 H Blood Pressure Mean 91 89 Pulse Ox 90 94 95 Oxygen Delivery Method Positive well nourished and well developed General Appearance ED: well developed and NAD HEENT Reports moist mucous membranes Neck supple and no JVD Resp normal respiratory effort and clear to auscultation bilaterally Cardio Rate: tachycardic Rhythm: abnormal rhythm irregularly irregular GI soft to palpation, non-tender and non-distended Extremity General Extremety ED: Yes edema; Negative for tenderness General Extremity: edema Neuro oriented x3, CN's II-XII intact bilaterally and no sensory deficits noted Sensorium / Orientation: awake and alert Motor Exam: strength 5/5 throughout Psych mental status grossly normal MDM MDM MDM Narrative Medical decision making narrative: Differential diagnosis includes cardiac dysrhythmia, cardiac ischemia, pneumonia, bronchitis, dehydration, electrolyte abnormality, congestive heart failure, and anxiety. EKG will be obtained to assess for cardiac dysrhythmia and cardiac ischemia. Chest x-ray will be obtained to assess for congestive heart failure, pneumonia, and bronchitis. CBC will be obtained to assess for leukocytosis and anemia. Basic metabolic profile will be obtained to assess for electrolyte abnormality and renal function. High-sensitivity troponin will be obtained to assess for cardiac ischemia. 2-hour repeat high-sensitivity troponin will be obtained to assess for ongoing cardiac ischemia. BNP will be obtained to assess for congestive heart failure. History & Record Review Additional record(s) reviewed:: Prior ED visit and Prior labs Lab Data Attestation: I reviewed the patient's lab results. Lab results narrative: CBC was reviewed. There is a mild leukocytosis of 11.1. The remainder is within normal limits. PT with INR and PTT were reviewed. Pro time is 16.2 and INR is 1.3. PTT was 28.6. Basic metabolic profile was reviewed. CO2 was slightly low at 17. BUN was slightly elevated at 23 and creatinine was slightly elevated at 1.21. High-sensitivity troponin was reviewed and was 18. 2-hour repeat high-sensitivity troponin was reviewed and was 21. 4-hour repeat high-sensitivity troponin was reviewed and was 18. Urinalysis was reviewed. There is no evidence of urinary tract infection or hematuria. Labs: Laboratory Results - last 24 hr 06/18/25 06/18/25 06/18/25 09:17 10:03 12:16 WBC 11.1 H RBC 4.87 Hgb 14.1 Hct 42.9 MCV 88.1 MCH 29.0 MCHC 32.9 RDW Std Deviation 45.4 H RDW Coeff of Paula 14.1 Plt Count 233 MPV 10.3 Immature Gran % (Auto) 0.400 Neut % (Auto) 82.8 H Lymph % (Auto) 9.9 L [place] % (Auto) 5.2 Eos % (Auto) 1.3 Baso % (Auto) 0.4 Absolute Neuts (auto) 9.2 H Absolute Lymphs (auto) 1.10 Nucleated RBC % 0 PT 16.2 H INR 1.3 APTT 28.6 Sodium 137 Potassium 4.1 Chloride 102 Carbon Dioxide 17.0 L Anion Gap 18 H BUN 23 H Creatinine 1.21 H Estim Creat Clear Calc 32.01 L Est GFR (MDRD) Non-Af 43 L BUN/Creatinine Ratio 18.6 Glucose 169 H Calcium 9.9 Troponin T High Sens 18 H D Troponin T Hi Sens 2 Hr Troponin T Hi Sens 4Hr Urine Color Yellow Urine Clarity Clear Urine pH 7.0 Ur Specific [place] 1.010 Urine Protein 15 H Urine Glucose (UA) Normal Urine Ketones Negative Urine Occult Blood 25 H Urine Nitrite Negative Urine Bilirubin Negative Urine Urobilinogen Normal Ur Leukocyte Esterase Negative Urine RBC 0-5 SEEN Urine WBC 0-5 SEEN Ur Squamous Epith Cells 0-5 SEEN Urine Bacteria 0 SEEN Urine Mucus 0 SEEN 06/18/25 06/18/25 12:44 14:06 WBC RBC Hgb Hct MCV MCH MCHC RDW Std Deviation RDW Coeff of Paula Plt Count MPV Immature Gran % (Auto) Neut % (Auto) Lymph % (Auto) [place] % (Auto) Eos % (Auto) Baso % (Auto) Absolute Neuts (auto) Absolute Lymphs (auto) Nucleated RBC % PT INR APTT Sodium Potassium Chloride Carbon Dioxide Anion Gap BUN Creatinine Estim Creat Clear Calc Est GFR (MDRD) Non-Af BUN/Creatinine Ratio Glucose Calcium Troponin T High Sens Troponin T Hi Sens 2 Hr 21 H Troponin T Hi Sens 4Hr 18 H Urine Color Urine Clarity Urine pH Ur Specific [place] Urine Protein Urine Glucose (UA) Urine Ketones Urine Occult Blood Urine Nitrite Urine Bilirubin Urine Urobilinogen Ur Leukocyte Esterase Urine RBC Urine WBC Ur Squamous Epith Cells Urine Bacteria Urine Mucus Radiography Chest X-Ray - ED: 2 View, Read by ED Physician, Read by Radiologist, No Acute Disease and Cardiomegaly Diagnostic Testing: Clinical Impression(s) from Imaging Studies Chest X-Ray 06/18/25 10:20 IMPRESSION: 1. Bibasilar atelectasis or pneumonia. 2. Cardiomegaly with mild congestion. 3. Bilateral pleural effusions. Reading Location: [facility] Chest CTA 06/18/25 14:31 IMPRESSION: No acute process detected. No pulmonary embolism. Sizable bilateral pleural effusions with associated airspace disease Reading Location: [facility] PA and lateral chest x-ray was obtained. There are 2 views. On my independent interpretation, lung khan show bibasilar atelectasis and mild congestion. There are mild bilateral pleural effusions. There is cardiomegaly. Bony thorax is normal. Radiologist also interpreted the x-ray and agrees. EKG Initial EKG: Attestation: I personally reviewed and interpreted this EKG as follows: Interpretation: Atrial Fibrillation (116) and Non-Specific ST Changes Comments: EKG was obtained. Interpretation, shows atrial fibrillation with a rate of 116. QRS and was normal at 66 ms. QTc interval was normal at 333 ms. [place] was normal. There are nonspecific ST-T wave changes noted in the lateral leads. Prior EKG tracings: available for review Prior: Unchanged (06/08/2025) Management Discussion w/another healthcare provider: Hospitalist and [employer] (Dr. Kenyon) Treatment and Re-Evaluation :: Patient was given a dose of Cardizem here. Patient had shortness of breath and weakness while walking to the bathroom. Because of this, CTA of the chest was obtained. There is no evidence of pulmonary embolism or pneumonia. Patient still feels weak on reevaluation. Because of this, I recommended admission to the hospital. Case was also discussed with cardiology. He recommended starting Lopressor 25 mg twice daily and decreasing the Cardizem to 240 mg daily. Case was discussed with the hospitalist. She will admit the patient to her service. She recommended adding on a lactate and BNP. These were ordered. Patient and family understand and are agreeable with the plan. All questions were answered. Discharge Plan Dx/Rx/DC Orders Clinical Impression: Atrial fibrillation, General weakness, Elevated blood pressure reading Disposition Disposition: Acute Care Hospital [facility]
[2025-06-18 10:12] LABS: Hematocrit 42.9 % (37-47); Hemoglobin 14.1 g/dL (12.0-15.0); Immature Granulocytes Count 0.040 X10^3/uL (0.0-0.0); Mean Corp Hgb Conc 32.9 g/dL (32-36); Mean Corpuscular Volume 88.1 fL (81-99); Mean Platelet Vol. 10.3 fl (6.2-12.0); NRBC Flagged by Analyzer 0 % (0-5); Platelet Count 233 K/mm3 (150-450); RBC Distribution Width CV 14.1 % (11.6-14.6); RBC Distribution Width SD 45.4 fl (35.1-43.9); Red Blood Count 4.87 M/mm3 (4.2-5.4); White Blood Count 11.1 K/mm3 (4.4-11.0)
--- NOTE | 2025-06-18 10:20 | RAD_ITS ---
RAD/Chest PA and Lateral
[2025-06-18 10:23] LABS: Partial Thromboplast Time 28.6 Seconds (24.1-36.2); Prothrombin Time (Protime)PT. 16.2 SECONDS (11.7-14.9)
[2025-06-18 10:24] LABS: Troponin T High Sensitivity 18 ng/L (<=14)
[2025-06-18 10:43] LABS: Anion Gap 18 (5-15); BUN 23 mg/dL (4-19); BUN/Creat Ratio 18.6 RATIO (10-20); Calcium,Total 9.9 mg/dL (7.6-11.0); Carbon Dioxide 17.0 mmol/L (21.0-32.0); Chloride 102 mmol/L (98-108); Estimated Creatinine Clearance 32.01 ml/min (50-250); Glucose 169 mg/dL (70-99); Potassium 4.1 mmol/L (3.3-5.1)
[2025-06-18 12:20] LABS: Mucous, Urine 0 SEEN /hpf (<or=2+)
[2025-06-18 12:22] LABS: Color, Urine Yellow (Yellow); Glucose, Dipstick Normal (Normal); Ketone-Dipstick Negative (Negative); Leukocyte Esterase-Dipstick Negative /ul (Negative); Nitrite-Dipstick Negative (Negative); Occult Blood-Urine 25 /ul (Negative); Protein-Dipstick 15 mg/dl (Negative); Specific Gravity, Urine 1.010 (1.002-1.030); Urine Bilirubin Dipstick Negative (Negative)
[2025-06-18 12:32] LABS: Red Blood Cells-Urine 0-5 SEEN /hpf (0-5); Squamous Epithelial Cells - UA 0-5 SEEN /hpf (5-10)
[2025-06-18 13:23] LABS: Troponin T High Sens 2 HR 21 ng/L (<=14)
--- NOTE | 2025-06-18 13:53 | ED.RN ---
when pt ambulated back from restroom, pt was having increased palpitations and sob. pt resp increased to [address] Valentin notified
[2025-06-18] MEDS: 0.9% Normal Saline (1000mL) 1,000 ML 999 ML IV (14:15)
--- NOTE | 2025-06-18 14:31 | CT_ITS ---
PROCEDURE: CT/CTA Chest W/WO Contrast
[2025-06-18 14:45] LABS: Troponin T High Sens 4 HR 18 ng/L (<=14)
[2025-06-18 17:15] LABS: Pro- Brain NATRIURETIC PEPTIDE 1695 pg/mL (<=1800)
--- NOTE | 2025-06-18 17:39 | PCM.HP.STD ---
HPI - General General Date of Admission: 06/18/25 Date of Service: 06/18/25 Chief Complaint: Shortness of breath HPI Narrative LINDSAY SALDIVAR, is a89 y/o F with a history of hypothyroidism, GERD, UTI, anxiety, recent diagnosis of atrial fibrillation started on Eliquis when she was diagnosed who presented [facility] ED 06/18/2025 with palpitations that became worse today and felt associated shortness of breath and walking across the room. In the ED heart rate 119 with a temp of 98.6, blood pressure 157/80, respiratory rate 28 pulse ox 98% on room air. CBC with white count 11.1, hemoglobin 14.1, troponin of 18, 21, then 18 again. No UTI. BMP with a bicarb of 17, gap of 18, BUN of 23 and a creatinine of 1.21 with a glucose of 169. Chest x-ray showed bibasilar atelectasis or pneumonia, cardiomegaly with mild congestion and bilateral pleural effusions. CTA showed sizable bilateral pleural effusions with associated airspace disease and no PE noted. It was felt patient was in RVR with rate in the 120s and patient was given a diltiazem bolus and cardiology was contacted who recommended decreasing Cardizem to 240 and starting Lopressor 25 mg twice daily. Given patient still feeling short of breath hospitalist contacted for admission. Patient evaluated at bedside, reports she has had increased shortness of breath over several weeks however over the past several days its been to the point where it is hard for her to get around, also notes increased lower extremity edema over that time. Has a little bit of a dry cough but nothing productive, no fevers, reports just feeling short of breath on exertion not as much at rest, no chest pain. [facility] Medical History Anxiety Depression Kidney disease GERD (gastroesophageal reflux disease) Non-smoker Atrial fibrillation Migraines Recurrent UTI Acquired renal cyst Hyperlipidemia Hypothyroidism Osteoporosis Thyroid disease Knee pain Hemorrhoids Arthritis Hypertension Home Medications ?Medication ?Instructions ?Recorded ?Last Taken ?Type Omeprazole [Prilosec] 40 mg PO DAILY 08/23/14 05/27/23 History paroxetine HCl 40 mg tablet (Paxil) 40 mg PO DAILY 08/23/14 05/27/23 History calcium carbonate 1,200 mg PO DAILY 12/04/17 05/27/23 History cholecalciferol (vitamin D3) 50 2,000 unit PO BID 12/04/17 05/27/23 History mcg (2,000 unit) chewable tablet levothyroxine 50 mcg tablet 50 mcg PO DAILY 12/04/17 05/27/23 History ascorbic acid (vitamin C) 500 mg 1 g PO DAILY 05/27/23 05/27/23 History tablet (Vitamin C) hydrochlorothiazide 12.5 mg capsule 12.5 mg PO DAILY 05/27/23 05/27/23 History albuterol sulfate 90 mcg/actuation 1 puff inhalation DAILY PRN sob 06/07/25 Unknown History aerosol inhaler (ProAir HFA) methenamine hippurate 1 gram tablet 1 g PO QDAY PRN prevent uti 06/07/25 Unknown History diltiazem HCl 360 mg 360 mg PO QDAY #90 caps 06/08/25 Unknown Rx capsule,extended release 24 hr (Cardizem CD) apixaban 2.5 mg tablet (Eliquis) 2.5 mg PO .COMPLEX #180 tabs 06/13/25 Unknown Rx Allergy/AdvReac Type Severity Reaction Status Date / Time rosuvastatin Allergy severe Verified 06/18/25 09:03 myalgias Sulfa (Sulfonamide Allergy Rash Verified 06/18/25 09:03 Antibiotics) amoxicillin (From Augmentin) AdvReac Diarrhea Verified 06/18/25 09:03 belladonna alkaloids AdvReac Other Verified 06/18/25 09:03 clavulanic acid (From AdvReac Diarrhea Verified 06/18/25 09:03 Augmentin) Family History Sister Hypertension Sister Hypertension Father CVA (cerebral vascular accident) Hypertension Mother Hypertension Anxiety disorder Brother Hypertension Surgical History H/O colonoscopy History of surgery History of carpal tunnel surgery H/O lumpectomy Hx of cholecystectomy H/O: hysterectomy Social History household members: spouse Smoking Status: Never smoker substance use type: does not use ROS ROS Narrative General: Denies fever/chills HENT: Denies headache, denies stuffy nose, denies sore throat EYES: Denies changes in vision Resp: Slight cough nonproductive, shortness of breath increasing worse on exertion Cardiac: Denies chest pain GI: Denies abdominal pain, denies changes in bowel, notes she stays constipated, denies nausea/vomiting : Denies changes in urination Extremity: Some increase swelling in lower extremities MSK: Feels little bit generally weak Neuro: Denies any numbness/tingling Heme: Denies any bleeding or bruising Skin: Denies rashes Psychiatric: No complaints voiced Vital Signs Vital Signs Vital Signs: 06/18/25 09:03 06/18/25 09:17 06/18/25 10:14 Temperature 98.6 F Temperature Source Oral Pulse Rate 119 H 117 H Respiratory Rate 20 H 23 H Respiratory Pattern Tachypnea Blood Pressure 157/80 H 139/86 H Blood Pressure Mean 105 103 Pulse Ox 98 94 Oxygen Delivery Method Room Air 06/18/25 11:00 06/18/25 12:00 06/18/25 12:30 Temperature Temperature Source Pulse Rate 88 88 Respiratory Rate 15 Respiratory Pattern Blood Pressure 106/68 126/91 H Blood Pressure Mean 79 103 Pulse Ox 93 92 94 Oxygen Delivery Method 06/18/25 12:45 06/18/25 13:00 06/18/25 13:00 Temperature Temperature Source Pulse Rate 119 H 78 Respiratory Rate 22 H 18 Respiratory Pattern Blood Pressure 112/70 132/77 H 127/67 H Blood Pressure Mean 83 95 85 Pulse Ox 94 92 Oxygen Delivery Method Room Air 06/18/25 13:15 06/18/25 13:15 06/18/25 13:30 Temperature Temperature Source Pulse Rate 78 82 Respiratory Rate 15 17 Respiratory Pattern Blood Pressure 125/69 H 125/69 H 124/73 H Blood Pressure Mean 85 85 84 Pulse Ox 92 90 Oxygen Delivery Method 06/18/25 13:47 06/18/25 13:55 06/18/25 14:00 Temperature Temperature Source Pulse Rate 119 H 118 H Respiratory Rate 18 22 H Respiratory Pattern Blood Pressure 132/77 H 122/75 H Blood Pressure Mean 91 89 Pulse Ox 90 94 95 Oxygen Delivery Method 06/18/25 14:15 06/18/25 14:15 06/18/25 14:30 Temperature Temperature Source Pulse Rate 108 H Respiratory Rate 20 H Respiratory Pattern Blood Pressure 108/76 108/76 120/53 L Blood Pressure Mean 86 86 73 Pulse Ox 94 91 Oxygen Delivery Method 06/18/25 14:30 06/18/25 14:45 06/18/25 15:00 Temperature Temperature Source Pulse Rate 91 92 Respiratory Rate 20 H 20 H Respiratory Pattern Blood Pressure 120/53 L 97/46 L 126/68 H Blood Pressure Mean 73 61 84 Pulse Ox 90 92 Oxygen Delivery Method 06/18/25 15:15 06/18/25 15:30 06/18/25 15:45 Temperature Temperature Source Pulse Rate 87 105 H 85 Respiratory Rate 20 H 24 H 27 H Respiratory Pattern Blood Pressure 116/67 125/87 H 123/73 H Blood Pressure Mean 79 94 83 Pulse Ox 89 93 92 Oxygen Delivery Method 06/18/25 16:00 06/18/25 16:15 06/18/25 16:30 Temperature Temperature Source Pulse Rate 86 97 92 Respiratory Rate 18 19 H 16 Respiratory Pattern Blood Pressure 115/82 H 129/83 H 116/82 H Blood Pressure Mean 92 98 92 Pulse Ox 93 96 94 Oxygen Delivery Method 06/18/25 16:45 06/18/25 16:53 06/18/25 17:00 Temperature 98 F Temperature Source Pulse Rate 92 86 85 Respiratory Rate 19 H 18 19 H Respiratory Pattern Blood Pressure 115/82 H Blood Pressure Mean 93 Pulse Ox 95 93 100 Oxygen Delivery Method Weight Weight: 72.7 kg Body Mass Index (BMI) 27.5 Physical Exam Narrative General: Alert, oriented, no apparent distress HEENT: Atraumatic, normocephalic Eyes: Anicteric, normal conjunctiva, extraocular movements grossly intact Neck: Supple Respiratory: Tachypneic with slightly increased respiratory effort, diminished at bases Cardiovascular: Irregularly irregular GI: Soft, nontender, nondistended Extremities: 1-2+ bilateral lower extremity edema Musculoskeletal: Moving all extremities Neuro: No overt focal neurological deficits Skin: No rashes appreciated Psych: Cooperative Results Lab / Micro Data 06/18/25 09:17 06/18/25 09:17 Labs: Laboratory Results - last 24 hr 06/18/25 09:17: WBC 11.1 H, RBC 4.87, Hgb 14.1, Hct 42.9, MCV 88.1, MCH 29.0, MCHC 32.9, RDW Std Deviation 45.4 H, RDW Coeff of Paula 14.1, Plt Count 233, MPV 10.3, Immature Gran % (Auto) 0.400, Neut % (Auto) 82.8 H, Lymph % (Auto) 9.9 L, [place] % (Auto) 5.2, Eos % (Auto) 1.3, Baso % (Auto) 0.4, Absolute Neuts (auto) 9.2 H, Absolute Lymphs (auto) 1.10, Nucleated RBC % 0, Sodium 137, Potassium 4.1, Chloride 102, Carbon Dioxide 17.0 L, Anion Gap 18 H, BUN 23 H, Creatinine 1.21 H, Estim Creat Clear Calc 32.01 L, Est GFR (MDRD) Non-Af 43 L, BUN/Creatinine Ratio 18.6, Glucose 169 H, Calcium 9.9, Troponin T High Sens 18 H D 06/18/25 10:03: PT 16.2 H, INR 1.3, APTT 28.6 06/18/25 12:16: Urine Color Yellow, Urine Clarity Clear, Urine pH 7.0, Ur Specific [place] 1.010, Urine Protein 15 H, Urine Glucose (UA) Normal, Urine Ketones Negative, Urine Occult Blood 25 H, Urine Nitrite Negative, Urine Bilirubin Negative, Urine Urobilinogen Normal, Ur Leukocyte Esterase Negative, Urine RBC 0-5 SEEN, Urine WBC 0-5 SEEN, Ur Squamous Epith Cells 0-5 SEEN, Urine Bacteria 0 SEEN, Urine Mucus 0 SEEN 06/18/25 12:44: Troponin T Hi Sens 2 Hr 21 H 06/18/25 14:06: Troponin T Hi Sens 4Hr 18 H, NT pro BNP II 1695 06/18/25 16:44: Lactic Acid 1.6 Imaging Radiology Impression Chest X-Ray 06/18/25 10:20 IMPRESSION: 1. Bibasilar atelectasis or pneumonia. 2. Cardiomegaly with mild congestion. 3. Bilateral pleural effusions. Reading Location: [id number] Chest CTA 06/18/25 14:31 IMPRESSION: No acute process detected. No pulmonary embolism. Sizable bilateral pleural effusions with associated airspace disease [facility] Assessment & Plan Assessment/Plan (1) Atrial fibrillation: (2) Pleural effusion: PLAN: Plan #Afib w/ RVR -Admit to telemetry -Initial rate in ED: 119 -EKG: A-fib with a rate of [address] changes -Rate control: Patient improved with heart rate in 80s to 90s on after she got a Cardizem bolus, cardiology contacted and recommended Lopressor 25 twice daily and decreasing Cardizem to 240, orders entered -AC: Continue home Eliquis -Echocardiogram: Did have recent echo 06/06/2025 however given patient now has increased bilateral effusions we will repeat limited echo to assess EF -TSH: Within normal limits on 06/06/2025 #Increased shortness of breath - Patient with bilateral pleural effusions seen on chest x-ray and CTA that were not there 2 weeks ago -BNP is actually lower than it was however at the time patient had been in RVR with rate in 140s, given effusions with increased lower extremity swelling and shortness of breath do think it is reasonable to repeat limited echo -May need to consider thoracentesis if symptoms not improving -Pending symptoms and echocardiogram may need to consider Lasix or other intervention though sx may improve w/ improved HR control -Daily weights, I's and O's #Hypothyroidism -Continue Synthroid #Depression/anxiety -Continue home medications #GERD -Continue PPI #DVT ppx: Not indicated already on full dose Vanessaququentin Vergara MD Charges/Coding Visit Charges Inpatient E&M: 89974 Init Hosp L2
--- NOTE | 2025-06-18 18:37 | ECHOL_ITS ---
Reason For Study ECHO/Echo, Limited Study
[2025-06-18] MEDS: APIXABAN 2.5 MG TABLET (WCH) PO (20:35)
[2025-06-18] MEDS: Cholecalciferol (VIT D3) 25 MCG TABLET (1,000 UNITS) 50 MCG PO (20:36)
[2025-06-19 03:15] VITALS: BP 130/77; PULSE 60; RESP 16; TEMP 37; O2SAT 94
[2025-06-19 03:22] VITALS: BMI 27.2
[2025-06-19 04:53] LABS: Hematocrit 39.1 % (37-47); Hemoglobin 12.9 g/dL (12.0-15.0); Immature Granulocytes Count 0.020 X10^3/uL (0.0-0.0); Mean Corp Hgb Conc 33.0 g/dL (32-36); Mean Corpuscular Volume 87.3 fL (81-99); Mean Platelet Vol. 10.3 fl (6.2-12.0); NRBC Flagged by Analyzer 0 % (0-5); Platelet Count 214 K/mm3 (150-450); RBC Distribution Width CV 14.2 % (11.6-14.6); RBC Distribution Width SD 45.7 fl (35.1-43.9); Red Blood Count 4.48 M/mm3 (4.2-5.4); White Blood Count 9.9 K/mm3 (4.4-11.0)
[2025-06-19 05:18] LABS: Anion Gap 11 (5-15); BUN 19 mg/dL (4-19); BUN/Creat Ratio 18.5 RATIO (10-20); Calcium,Total 9.0 mg/dL (7.6-11.0); Carbon Dioxide 20.8 mmol/L (21.0-32.0); Chloride 106 mmol/L (98-108); Estimated Creatinine Clearance 36.72 ml/min (50-250); Glucose 119 mg/dL (70-99); Potassium 4.2 mmol/L (3.3-5.1)
[2025-06-19 09:30] VITALS: BP 126/77; PULSE 80; RESP 18; TEMP 36.2; O2SAT 93
[2025-06-19 09:31] VITALS: PULSE 80
[2025-06-19] MEDS: Calcium (Elemental) 500 MG Tablet PO (09:31)
[2025-06-19] MEDS: APIXABAN 2.5 MG TABLET (WCH) PO ×2 (09:31→22:22)
[2025-06-19] MEDS: Cholecalciferol (VIT D3) 25 MCG TABLET (1,000 UNITS) 50 MCG PO ×2 (09:31→22:22)
--- NOTE | 2025-06-19 10:25 | RAD_ITS ---
PROCEDURE: RAD/Chest PA and Lateral
--- NOTE | 2025-06-19 11:46 | CASEMGMT ---
KAVITA GREER Assessment Face to Face with patient for initial transition planning/care coordination assessment. KAVITA GREER introduced self and role at [facility], pt voices understanding. Pt is A&Ox4 and is resting comfortably in bed and is calm. Pt's at the bedside. Care providers, pharmacy, and demographics verified. Admitting dx: MALGORZATA MONROE Strata: 2 PCP: [facility] Specialists: MAILE Preferred Pharmacy: [facility] Insurance: [facility] Prescription Benefit: Yes LNOK: Jack (H) Living Arrangements: Pt lives with her in a 2 story home with one step to enter ADLs/IADLs: Pt reports that she is indep at baseline. Current 6-Click score is 18 and PT is pending. Pt denies concerns at this time Transportation: Self, DME: Cane, BP Machine, pulse ox. Pt refuses the need for a FWW at this time. Pt is currently requiring additional oxygen and may qualify for home oxygen use. A verbal list of local in-network DME companies were provided to the pt at this time. Pt prefers [facility] HHC/SNF: Pt adamantly declines the need including OP Tx. Pt?s goal: Home Plan: Home with pt's , follow for oxygen needs. Pt reports that she recently started taking home Eliquis and that her heart doctor provided information on getting the medication out of [facility] for a better malik. Pt reports that she filled her first months supply through [employer] for 150$ and that the [facility] Eliquis is coming in the mail in 1-2 months. Pt was educated about the free trial card. Pt states that she has not used this and that she would like to. Informed the pt that this can only be used once. Pt states understanding. Card provided. Pt and pt's thank this sports writer and deny any further DC needs or concerns. Report given to [facility] ETIOLOGIST CM. Amrit Whipple RN, CM
[2025-06-19 13:16] LABS: Pro- Brain NATRIURETIC PEPTIDE 1450 pg/mL (<=1800)
[2025-06-19 13:20] VITALS: BP 119/84; PULSE 84; RESP 18; TEMP 36.2; O2SAT 96
[2025-06-19] MEDS: Furosemide 20 MG/2 ML VIAL IV ×2 (13:22→16:24)
--- NOTE | 2025-06-19 17:33 | PN.HOSP_ITS ---
Reason for Visit
--- NOTE | 2025-06-19 17:33 | PCM.PN.HOSP ---
Reason for Visit Chief Complaint: Shortness of breath Subjective Subjective Patient reports still feeling short of breath especially on exertion, lower extremity swelling similar to yesterday, no chest pain Objective Data Objective Data Vital Signs: Vital Signs Temp Pulse Resp BP Pulse Ox O2 Del Method O2 Flow Rate 97.1 F L 84 18 119/84 H 96 Nasal Cannula 3 06/19/25 13:20 06/19/25 13:20 06/19/25 13:20 06/19/25 13:20 06/19/25 13:20 06/19/25 14:00 06/19/25 14:00 FiO2 93 06/19/25 14:00 Oxygen Flow Rate (L/min) 3 Oxygen Delivery Method Nasal Cannula Weight: 72 kg Body Mass Index (BMI) 27.2 Intake & Output: Intake and Output for Last 24 Hours 06/17/25 06/18/25 06/19/25 23:59 22:59 23:59 Intake Total 1000 / 1000 500 / 500 Balance 1000 / 1000 500 / 500 Lab / Micro Data 06/19/25 03:37 06/19/25 03:37 Labs: Laboratory Results - last 24 hr 06/19/25 03:37: WBC 9.9, RBC 4.48, Hgb 12.9, Hct 39.1, MCV 87.3, MCH 28.8, MCHC 33.0, RDW Std Deviation 45.7 H, RDW Coeff of Paula 14.2, Plt Count 214, MPV 10.3, Immature Gran % (Auto) 0.200, Neut % (Auto) 79.1 H, Lymph % (Auto) 11.3 L, [place] % (Auto) 6.9, Eos % (Auto) 2.1, Baso % (Auto) 0.4, Absolute Neuts (auto) 7.9 H, Absolute Lymphs (auto) 1.12, Nucleated RBC % 0, Sodium 139, Potassium 4.2, Chloride 106, Carbon Dioxide 20.8 L, Anion Gap 11, BUN 19, Creatinine 1.05, Estim Creat Clear Calc 36.72 L, Est GFR (MDRD) Non-Af 51 L, BUN/Creatinine Ratio 18.5, Glucose 119 H, Calcium 9.0, NT pro BNP II 1450 Radiography Diagnostic Testing: Radiology Impression Echocardiogram 06/18/25 18:37 Interpretation Summary The left ventricular ejection fraction is 70 %. Mild concentric left ventricular hypertrophy. The left atrium is severely enlarged. The right atrium is moderately enlarged. Severe mitral annular calcification. Mild (1+) mitral valve insufficiency. Mild-Moderate (1-2+) tricuspid valve insufficiency. Pulmonary artery systolic pressure is 50 mmHg. Compared to prior study, there is no significant change. Ordering Physician: Janine Vergara Referring Physician: Bell Gaffney Performed By: Carol Guerrero RCS Chest X-Ray 06/19/25 10:25 IMPRESSION: Bilateral pleural effusions and bibasilar infiltrative airspace opacities with possible right infrahilar focal airspace disease. Reading Location: [place] [address] Physical Exam Narrative General: Alert, oriented, no apparent distress HEENT: Atraumatic, normocephalic Eyes: Anicteric, normal conjunctiva, extraocular movements grossly intact Neck: Supple Respiratory: Tachypneic with slightly increased respiratory effort, diminished throughout Cardiovascular: Irregularly irregular GI: Soft, nontender, nondistended Extremities: 1-2+ bilateral lower extremity edema Musculoskeletal: Moving all extremities Neuro: No overt focal neurological deficits Skin: No rashes appreciated Psych: Cooperative Assessment & Plan Assessment/Plan (1) Atrial fibrillation: (2) Pleural effusion: PLAN: Plan #Afib w/ RVR -Admit to telemetry -Initial rate in ED: 119 -EKG: A-fib with a rate of [address] changes -Rate control: Patient improved with heart rate in 80s to 90s on after she got a Cardizem bolus, cardiology contacted and recommended Lopressor 25 twice daily and decreasing Cardizem to 240, orders entered -AC: Continue home Eliquis -Echocardiogram: Did have recent echo 06/06/2025 however given patient now has increased bilateral effusions we will repeat limited echo to assess EF -TSH: Within normal limits on 06/06/2025 -06/19: Heart rates been 80s to 90s but without improvement, query if patient was RVR or if this was physiologic tachycardia in the setting of A-fib, discussed with cardiology and given patient's symptoms concerned that symptoms may be exacerbated by being in A-fib patients to be switched to 200 mg 3 times daily of p.o. Amio and will hold metoprolol and Cardizem #Increased shortness of breath - Patient with bilateral pleural effusions seen on chest x-ray and CTA that were not there 2 weeks ago -BNP is actually lower than it was however at the time patient had been in RVR with rate in 140s, given effusions with increased lower extremity swelling and shortness of breath do think it is reasonable to repeat limited echo -May need to consider thoracentesis if symptoms not improving -Pending symptoms and echocardiogram may need to consider Lasix or other intervention though sx may improve w/ improved HR control -Daily weights, I's and O's -06/19: Chest x-ray today appeared worse, echo with EF 70% with mild concentric left ventricular hypertrophy, mild to moderate tricuspid valve insufficiency, PASP of 50 and no significant change from prior echocardiogram. Chest x-ray did look worse, patient may not tolerate being in A-fib, switching to p.o. Amio. Additionally will order thoracentesis for symptomatic relief and patient was placed on IV Lasix Chronic medical problems and/or problems not being actively addressed during today's encounter: #Hypothyroidism -Continue Synthroid #Depression/anxiety -Continue home medications #GERD -Continue PPI #DVT ppx: Not indicated already on full dose Rita Vergara MD Time spent in the patient's overall evaluation,decision-making process, review of diagnostic data, adjustment of management, discussion with other providers, nursing nursing and ancillary staff involved in patient's care documentation, 40 Minutes Charges/Coding Visit Charges Inpatient E&M: 91939 [facility] H[facility] L2
[2025-06-19 22:14] VITALS: BP 127/91; PULSE 115; RESP 18; TEMP 36.4; O2SAT 94
[2025-06-20] VITALS (12 sets, daily range): BP systolic 120–141; BP diastolic 76–99; PULSE 113–120; RESP 14–22; TEMP 36.5–37; O2SAT 93–98; BMI 27.6
[2025-06-20 04:20] LABS: Hematocrit 40.7 % (37-47); Hemoglobin 13.6 g/dL (12.0-15.0); Immature Granulocytes Count 0.060 X10^3/uL (0.0-0.0); Mean Corp Hgb Conc 33.4 g/dL (32-36); Mean Corpuscular Volume 86.6 fL (81-99); Mean Platelet Vol. 10.1 fl (6.2-12.0); NRBC Flagged by Analyzer 0 % (0-5); Platelet Count 216 K/mm3 (150-450); RBC Distribution Width CV 14.0 % (11.6-14.6); RBC Distribution Width SD 44.6 fl (35.1-43.9); Red Blood Count 4.70 M/mm3 (4.2-5.4); White Blood Count 12.4 K/mm3 (4.4-11.0)
[2025-06-20 04:43] LABS: Anion Gap 14 (5-15); BUN 23 mg/dL (4-19); BUN/Creat Ratio 19.3 RATIO (10-20); Calcium,Total 9.3 mg/dL (7.6-11.0); Carbon Dioxide 23.1 mmol/L (21.0-32.0); Chloride 102 mmol/L (98-108); Estimated Creatinine Clearance 32.61 ml/min (50-250); Glucose 128 mg/dL (70-99); Potassium 3.4 mmol/L (3.3-5.1)
[2025-06-20 05:55] LABS: LDH 175 U/L (84-246)
--- NOTE | 2025-06-20 07:00 | US_ITS ---
PROCEDURE: US/Thoracentesis W US
[2025-06-20] MEDS: Calcium (Elemental) 500 MG Tablet PO (09:33)
[2025-06-20] MEDS: Cholecalciferol (VIT D3) 25 MCG TABLET (1,000 UNITS) 50 MCG PO ×2 (09:34→21:53)
[2025-06-20] MEDS: APIXABAN 2.5 MG TABLET (WCH) PO ×2 (09:52→21:54)
--- NOTE | 2025-06-20 12:00 | PN.HOSP_ITS ---
Reason for Visit
--- NOTE | 2025-06-20 12:00 | PCM.PN.HOSP ---
Reason for Visit Chief Complaint: Shortness of breath Subjective Subjective Still short of breath, thinks possibly slightly better than yesterday, patient for thoracentesis today Objective Data Objective Data Vital Signs: Vital Signs Temp Pulse Resp BP Pulse Ox O2 Del Method O2 Flow Rate 97.7 F L 115 H 16 134/95 H 95 Nasal Cannula 2 06/20/25 15:00 06/20/25 15:00 06/20/25 15:00 06/20/25 15:00 06/20/25 15:00 06/20/25 15:00 06/20/25 15:00 FiO2 93 06/19/25 14:00 Oxygen Flow Rate (L/min) 2 Oxygen Delivery Method Nasal Cannula Weight: 73 kg Body Mass Index (BMI) 27.6 Intake & Output: Intake and Output for Last 24 Hours 06/18/25 06/19/25 06/20/25 22:59 23:59 23:59 Intake Total 1000 / 1000 900 / 900 660 / 660 Output Total 1420 / 1420 Balance 1000 / 1000 900 / 700 -760 / -760 Lab / Micro Data 06/20/25 04:07 06/20/25 04:07 Labs: Laboratory Results - last 24 hr 06/19/25 03:37: Total Protein 6.8 06/19/25 13:35: Fluid Glucose 143, Fluid Total Protein 1.9, Fluid LDH 62 06/20/25 04:07: WBC 12.4 H, RBC 4.70, Hgb 13.6, Hct 40.7, MCV 86.6, MCH 28.9, MCHC 33.4, RDW Std Deviation 44.6 H, RDW Coeff of Paula 14.0, Plt Count 216, MPV 10.1, Immature Gran % (Auto) 0.500, Neut % (Auto) 80.9 H, Lymph % (Auto) 9.3 L, [place] % (Auto) 6.8, Eos % (Auto) 2.2, Baso % (Auto) 0.3, Absolute Neuts (auto) 10.1 H, Absolute Lymphs (auto) 1.16, Nucleated RBC % 0, Sodium 138, Potassium 3.4, Chloride 102, Carbon Dioxide 23.1, Anion Gap 14, BUN 23 H, Creatinine 1.19, Estim Creat Clear Calc 32.61 L, Est GFR (MDRD) Non-Af 44 L, BUN/Creatinine Ratio 19.3, Glucose 128 H, Calcium 9.3, Lactate Dehydrogenase 175 06/20/25 13:35: Fluid WBC 0.325, Fluid Tot Cell Count 0.336 H, Fld Polynuclear WBCs # 0.017, Fld Polynuclear WBCs % 5.2, Fluid Mononuclear WBCs 0.308, Fld Mononuclear WBCs % 94.8 Radiography Diagnostic Testing: Radiology Impression Thoracentesis Ultrasound 06/20/25 07:00 IMPRESSION: Successful therapeutic and diagnostic ultrasound-guided right thoracentesis. Laboratory results pending. Reading Location: [place] [address] Physical Exam Narrative General: Alert, oriented, no apparent distress HEENT: Atraumatic, normocephalic Eyes: Anicteric, normal conjunctiva, extraocular movements grossly intact Neck: Supple Respiratory: Diminished throughout, work of breathing slightly improved from yesterday Cardiovascular: Irregularly irregular GI: Soft, nontender, nondistended Extremities: Still at least 1+ bilateral lower extremity edema but appears to have some wrinkles Musculoskeletal: Moving all extremities Neuro: No overt focal neurological deficits Skin: No rashes appreciated Psych: Cooperative Assessment & Plan Assessment/Plan (1) Pleural effusion: (2) Atrial fibrillation: PLAN: Plan #Increased shortness of breath - Patient with bilateral pleural effusions seen on chest x-ray and CTA that were not there 2 weeks ago -BNP is actually lower than it was however at the time patient had been in RVR with rate in 140s, given effusions with increased lower extremity swelling and shortness of breath do think it is reasonable to repeat limited echo -May need to consider thoracentesis if symptoms not improving -Pending symptoms and echocardiogram may need to consider Lasix or other intervention though sx may improve w/ improved HR control -Daily weights, I's and O's -06/19: Chest x-ray today appeared worse, echo with EF 70% with mild concentric left ventricular hypertrophy, mild to moderate tricuspid valve insufficiency, PASP of 50 and no significant change from prior echocardiogram. Chest x-ray did look worse, patient may not tolerate being in A-fib, switching to p.o. Amio. Additionally will order thoracentesis for symptomatic relief and patient was placed on IV Lasix -06/20: Improving slightly on IV Lasix, thoracentesis x 1 today, tomorrow will have thoracentesis on the other side to help with quicker symptom relief #Afib w/ elevated rate -Admit to telemetry -Initial rate in ED: 119 -EKG: A-fib with a rate of [address] changes -Rate control: Patient improved with heart rate in 80s to 90s on after she got a Cardizem bolus, cardiology contacted and recommended Lopressor 25 twice daily and decreasing Cardizem to 240, orders entered -AC: Continue home Eliquis -Echocardiogram: Did have recent echo 06/06/2025 however given patient now has increased bilateral effusions we will repeat limited echo to assess EF -TSH: Within normal limits on 06/06/2025 -06/19: Heart rates been 80s to 90s but without improvement, query if patient was RVR or if this was physiologic tachycardia in the setting of A-fib, discussed with cardiology and given patient's symptoms concerned that symptoms may be exacerbated by being in A-fib patients to be switched to 200 mg 3 times daily of p.o. Amio and will hold metoprolol and Cardizem -06/20: Heart rate had been 110-120, given well clinical picture suspect that this was actually A-fib with a physiologic/compensatory tachycardia due to her work of breathing and not true RVR, management of underlying symptoms as above, patient switched over to amiodarone and attempt to help rhythm and rate Chronic medical problems and/or problems not being actively addressed during today's encounter: #Hypothyroidism -Continue Synthroid #Depression/anxiety -Continue home medications #GERD -Continue PPI #DVT ppx: Not indicated already on full dose Vanessaquis Janine Vergara MD Time spent in the patient's overall evaluation,decision-making process, review of diagnostic data, adjustment of management, discussion with other providers, nursing nursing and ancillary staff involved in patient's care documentation, 37 Minutes Charges/Coding Visit Charges Inpatient E&M: 25277 [facility] Hosp L2
--- NOTE | 2025-06-20 13:35 | FLU_PTH ---
PATIENT: LINDSAY SALDIVAR LOC: [facility] U#:[id number] AGE/SX: 89/F ROOM: [facility] RE06/18/[address]: Dr. Janine Vergara MD : [id number] BED: 1 DIS: 06/23/2025 SPEC #: [id number] RECD: 06/20/25 13:41 STATUS: ZEYAD REQ #: [id number] BROOKE: 06/20/25 13:[address]: Janine Vergara DEPT: CYTOLOGY RECD BY: Power Trinidad ENTERED: 06/21/25 13:41 SP TYPE: Fluid OTHR DR: Bell Gaffney, SET UP WORKER-C Tissues: A - Pleural fluid, NOS Procedures: Special Stain Group II Surgery Specimen Level IV Cytospin Fluid HEADER OPERATION: Ultrasound guided thoracentesis - right PRE-OP DIAGNOSIS: Pleural effusion TISSUE SUBMITTED: A- Thoracentesis fluid for cytology DIAGNOSIS CYTOLOGY A. Pleural effusion, thoracentesis (cytospin, cellblock): - No malignant cells identified. CYTOLOGY STUDY Slides are reviewed. CYTOLOGY GROSS A. Received is 110 ml of hazy-yellow fluid labeled with the patient's name and and designated per the requisition as Thoracentesis fluid. Submitted for cytology and cell block preparation. 06/21/2025 CPT: 30009,51587
[2025-06-20] MEDS: Lidocaine 2% (20 ml mdv) 20 ML Vial INFILT (13:36)
[2025-06-20 14:12] LABS: Cytology, Body Fluid / CSF SEE PATHOLOGY REPORT
[2025-06-20 14:38] LABS: Body Fluid Mononuclear WBC # 0.308 10^3/uL; Body Fluid Mononuclear WBC % 94.8 %; Body Fluid Polynuclear WBC # 0.017 10^3/uL; Body Fluid Polynuclear WBC % 5.2 %; White Blood Count/Body Fluid 0.325 10^3/uL
[2025-06-20 15:46] LABS: Glucose, Body Fluid 143 mg/dL (Not Establ.)
[2025-06-20 17:06] LABS: Auto B Fluid Analyzer BKGD Ct COUNTS W/IN LIMITS (W/IN LIMITS); Source- Body Fluid PLEURAL FLUID
[2025-06-20 17:08] LABS: Appearance/Body Fluid CLEAR; Color/Body Fluid LT YEL
[2025-06-20 17:09] LABS: Body Fluid QC Type(s) BF1Q
[2025-06-20 17:28] LABS: Red Cell Count/Body Fluid 344 /mm3
[2025-06-20 20:52] LABS: Neutrophil (Segs) 4 %
[2025-06-20 20:54] LABS: Other Cell Type/BF 0 %
[2025-06-21] VITALS (15 sets, daily range): BP systolic 114–141; BP diastolic 68–90; PULSE 113–118; RESP 14–18; TEMP 36–37.2; O2SAT 93–98; BMI 26.9
[2025-06-21 05:06] LABS: Hematocrit 38.8 % (37-47); Hemoglobin 13.0 g/dL (12.0-15.0); Immature Granulocytes Count 0.050 X10^3/uL (0.0-0.0); Mean Corp Hgb Conc 33.5 g/dL (32-36); Mean Corpuscular Volume 86.6 fL (81-99); Mean Platelet Vol. 10.5 fl (6.2-12.0); NRBC Flagged by Analyzer 0 % (0-5); Platelet Count 204 K/mm3 (150-450); RBC Distribution Width CV 14.0 % (11.6-14.6); RBC Distribution Width SD 44.9 fl (35.1-43.9); Red Blood Count 4.48 M/mm3 (4.2-5.4); White Blood Count 10.2 K/mm3 (4.4-11.0)
[2025-06-21 05:34] LABS: Anion Gap 13 (5-15); BUN 22 mg/dL (4-19); BUN/Creat Ratio 17.1 RATIO (10-20); Calcium,Total 8.7 mg/dL (7.6-11.0); Carbon Dioxide 25.7 mmol/L (21.0-32.0); Chloride 100 mmol/L (98-108); Estimated Creatinine Clearance 30.42 ml/min (50-250); Glucose 111 mg/dL (70-99); Potassium 3.2 mmol/L (3.3-5.1)
[2025-06-21] MEDS: Calcium (Elemental) 500 MG Tablet PO (08:28)
[2025-06-21] MEDS: Potassium Chloride Oral Tablet 20 MEQ 40 MEQ PO (08:31)
[2025-06-21] MEDS: APIXABAN 2.5 MG TABLET (WCH) PO ×2 (08:32→20:00)
[2025-06-21] MEDS: Cholecalciferol (VIT D3) 25 MCG TABLET (1,000 UNITS) 50 MCG PO ×2 (08:33→20:00)
[2025-06-21 08:45] LABS: Pathologist Comment/Body Fluid Reviewed
--- NOTE | 2025-06-21 11:02 | PN.HOSP_ITS ---
Reason for Visit
--- NOTE | 2025-06-21 11:02 | PCM.PN.HOSP ---
Reason for Visit Chief Complaint: Shortness of breath Subjective Subjective Still short of breath but breathing is improved from yesterday postthoracentesis and with Lasix Objective Data Objective Data Vital Signs: Vital Signs Temp Pulse Resp BP Pulse Ox O2 Del Method O2 Flow Rate 97.8 F 117 H 14 122/87 H 96 Nasal Cannula 2 06/21/25 08:41 06/21/25 08:41 06/21/25 08:41 06/21/25 08:41 06/21/25 08:41 06/21/25 08:41 06/21/25 08:41 FiO2 93 06/19/25 14:00 Oxygen Flow Rate (L/min) 2 Oxygen Delivery Method Nasal Cannula Weight: 71.1 kg Body Mass Index (BMI) 26.9 Intake & Output: Intake and Output for Last 24 Hours 06/19/25 06/20/25 06/21/25 23:59 23:59 23:59 Intake Total 900 / 900 1210 / 1210 Output Total 1420 / 1420 Balance 900 / 700 -210 / -210 Lab / Micro Data 06/21/25 03:38 06/21/25 03:38 Labs: Laboratory Results - last 24 hr 06/19/25 13:35: Fluid Glucose 143, Fluid Total Protein 1.9, Fluid LDH 62 06/20/25 13:35: Fluid Source PLEURAL FLUID, Fluid Color LT YEL, Fluid Appearance CLEAR, Fluid WBC 0.325, Fluid RBC 344, Fluid Tot Cell Count 0.336 H, Fld Polynuclear WBCs # 0.017, Fld Polynuclear WBCs % 5.2, Fluid Mononuclear WBCs 0.308, Fld Mononuclear WBCs % 94.8, Fluid Neutrophils 4, Fluid Lymphocytes 24, Fluid Monocytes 5, Fluid Macrophages 63, Fld Mesothelial Cells 4, Fluid Other Cells 0, Fl Pathologist Comment Reviewed, Fluid Comment 2 SEE COMMENT 06/21/25 03:38: WBC 10.2, RBC 4.48, Hgb 13.0, Hct 38.8, MCV 86.6, MCH 29.0, MCHC 33.5, RDW Std Deviation 44.9 H, RDW Coeff of Paula 14.0, Plt Count 204, MPV 10.5, Immature Gran % (Auto) 0.500, Neut % (Auto) 77.3 H, Lymph % (Auto) 11.5 L, [place] % (Auto) 7.5, Eos % (Auto) 2.7, Baso % (Auto) 0.5, Absolute Neuts (auto) 7.9 H, Absolute Lymphs (auto) 1.17, Nucleated RBC % 0, Sodium 139, Potassium 3.2 L, Chloride 100, Carbon Dioxide 25.7, Anion Gap 13, BUN 22 H, Creatinine 1.26 H, Estim Creat Clear Calc 30.42 L, Est GFR (MDRD) Non-Af 41 L, BUN/Creatinine Ratio 17.1, Glucose 111 H, Calcium 8.7 Micro: Microbiology 06/20/25 13:35 Fluid - Pleural (Lung) Body Fluid Culture - Preliminary No growth-Final to follow Radiography Diagnostic Testing: Radiology Impression Thoracentesis Ultrasound 06/20/25 07:00 IMPRESSION: Successful therapeutic and diagnostic ultrasound-guided right thoracentesis. Laboratory results pending. Reading Location: [place] [address] Physical Exam Narrative General: Alert, oriented, no apparent distress HEENT: Atraumatic, normocephalic Eyes: Anicteric, normal conjunctiva, extraocular movements grossly intact Neck: Supple Respiratory: Improved aeration of right lung, left lung still dull bases Cardiovascular: Low-grade tachycardia GI: Soft, nontender, nondistended Extremities: 1+ bilateral lower extremity edema but wrinkles present Musculoskeletal: Moving all extremities Neuro: No overt focal neurological deficits Skin: No rashes appreciated Psych: Cooperative Assessment & Plan Assessment/Plan (1) Pleural effusion: (2) Atrial fibrillation: PLAN: Plan #Increased shortness of breath secondary to bilateral pleural effusions and fluid overload - Patient with bilateral pleural effusions seen on chest x-ray and CTA that were not there 2 weeks ago -BNP is actually lower than it was however at the time patient had been in RVR with rate in 140s, given effusions with increased lower extremity swelling and shortness of breath do think it is reasonable to repeat limited echo -May need to consider thoracentesis if symptoms not improving -Pending symptoms and echocardiogram may need to consider Lasix or other intervention though sx may improve w/ improved HR control -Daily weights, I's and O's -06/19: Chest x-ray today appeared worse, echo with EF 70% with mild concentric left ventricular hypertrophy, mild to moderate tricuspid valve insufficiency, PASP of 50 and no significant change from prior echocardiogram. Chest x-ray did look worse, patient may not tolerate being in A-fib, switching to p.o. Amio. Additionally will order thoracentesis for symptomatic relief and patient was placed on IV Lasix -06/20: Improving slightly on IV Lasix, thoracentesis x 1 today, tomorrow will have thoracentesis on the other side to help with quicker symptom relief -06/21: Patient underwent right thoracentesis with some improvement in symptoms, to undergo left thoracentesis, has been responding to Lasix as well, continue supportive care and mobilizing as able. Repeat EKG as it appears patient may be back in sinus rhythm, suspect that she may not tolerate being in atrial fibrillation very well which may lead to her fluid overload on top of her LVH and pulmonary hypertension. Continue amiodarone #Afib w/ elevated rate -Admit to telemetry -Initial rate in ED: 119 -EKG: A-fib with a rate of [address] changes -Rate control: Patient improved with heart rate in 80s to 90s on after she got a Cardizem bolus, cardiology contacted and recommended Lopressor 25 twice daily and decreasing Cardizem to 240, orders entered -AC: Continue home Eliquis -Echocardiogram: Did have recent echo 06/06/2025 however given patient now has increased bilateral effusions we will repeat limited echo to assess EF -TSH: Within normal limits on 06/06/2025 -06/19: Heart rates been 80s to 90s but without improvement, query if patient was RVR or if this was physiologic tachycardia in the setting of A-fib, discussed with cardiology and given patient's symptoms concerned that symptoms may be exacerbated by being in A-fib patients to be switched to 200 mg 3 times daily of p.o. Amio and will hold metoprolol and Cardizem -06/20: Heart rate had been 110-120, given well clinical picture suspect that this was actually A-fib with a physiologic/compensatory tachycardia due to her work of breathing and not true RVR, management of underlying symptoms as above, patient switched over to amiodarone and attempt to help rhythm and rate -06/21: Repeating EKG as patient low-grade tachycardia however appears more regular but difficult to assess for P waves on her telemetry due to artifact Chronic medical problems and/or problems not being actively addressed during today's encounter: #Hypothyroidism -Continue Synthroid #Depression/anxiety -Continue home medications #GERD -Continue PPI #DVT ppx: Not indicated already on full dose Vanessaququentin Vergara MD Time spent in the patient's overall evaluation,decision-making process, review of diagnostic data, adjustment of management, discussion with other providers, nursing nursing and ancillary staff involved in patient's care documentation, 36 Minutes Charges/Coding Visit Charges Inpatient E&M: 29023 [facility] Hosp L2
[2025-06-21] MEDS: Lidocaine 2% (20 ml mdv) 20 ML Vial INFILT (12:15)
[2025-06-21] MEDS: 0.9% Saline Lock 10 ML Syringe IV (15:38)
--- NOTE | 2025-06-21 16:50 | US_ITS ---
PROCEDURE: US/Thoracentesis W US
[2025-06-22] VITALS (9 sets, daily range): BP systolic 104–134; BP diastolic 72–98; PULSE 112–117; RESP 16–18; TEMP 36.1–36.8; O2SAT 94–98; BMI 26.4
[2025-06-22 06:17] LABS: Hematocrit 41.8 % (37-47); Hemoglobin 14.0 g/dL (12.0-15.0); Immature Granulocytes Count 0.040 X10^3/uL (0.0-0.0); Mean Corp Hgb Conc 33.5 g/dL (32-36); Mean Corpuscular Volume 86.4 fL (81-99); Mean Platelet Vol. 10.4 fl (6.2-12.0); NRBC Flagged by Analyzer 0 % (0-5); Platelet Count 224 K/mm3 (150-450); RBC Distribution Width CV 13.7 % (11.6-14.6); RBC Distribution Width SD 43.4 fl (35.1-43.9); Red Blood Count 4.84 M/mm3 (4.2-5.4); White Blood Count 9.8 K/mm3 (4.4-11.0)
[2025-06-22 06:55] LABS: Anion Gap 12 (5-15); BUN 23 mg/dL (4-19); BUN/Creat Ratio 18.4 RATIO (10-20); Calcium,Total 9.1 mg/dL (7.6-11.0); Carbon Dioxide 26.2 mmol/L (21.0-32.0); Chloride 101 mmol/L (98-108); Estimated Creatinine Clearance 30.44 ml/min (50-250); Glucose 111 mg/dL (70-99); Potassium 3.3 mmol/L (3.3-5.1)
[2025-06-22] MEDS: APIXABAN 2.5 MG TABLET (WCH) PO ×2 (08:33→21:25)
[2025-06-22] MEDS: Cholecalciferol (VIT D3) 25 MCG TABLET (1,000 UNITS) 50 MCG PO ×2 (08:33→21:25)
[2025-06-22] MEDS: Calcium (Elemental) 500 MG Tablet PO (08:33)
[2025-06-22] MEDS: 0.9% Saline Lock 10 ML Syringe IV ×3 (10:29→17:46)
--- NOTE | 2025-06-22 16:44 | PN.HOSP_ITS ---
Reason for Visit
--- NOTE | 2025-06-22 16:44 | PCM.PN.HOSP ---
Reason for Visit Chief Complaint: Shortness of breath Subjective Subjective Shortness of breath progressively improving, lower extremity edema also improving, exercise tolerance improving Objective Data Objective Data Vital Signs: Vital Signs Temp Pulse Resp BP Pulse Ox O2 Del Method O2 Flow Rate 97.8 F 117 H 18 114/98 H 98 Room Air 2 06/22/25 13:35 06/22/25 13:36 06/22/25 13:35 06/22/25 13:35 06/22/25 13:35 06/22/25 13:41 06/21/25 14:45 FiO2 93 06/19/25 14:00 Oxygen Flow Rate (L/min) 2 Oxygen Delivery Method Room Air Weight: 70 kg Body Mass Index (BMI) 26.4 Intake & Output: Intake and Output for Last 24 Hours 06/20/25 06/21/25 06/22/25 23:59 23:59 23:59 Intake Total 1210 / 1210 960 / 1260 790 / 790 Output Total 1420 / 1420 310 / 310 Balance -210 / -210 650 / 950 790 / 790 Lab / Micro Data 06/22/25 05:35 06/22/25 05:35 Labs: Laboratory Results - last 24 hr 06/22/25 05:35: WBC 9.8, RBC 4.84, Hgb 14.0, Hct 41.8, MCV 86.4, MCH 28.9, MCHC 33.5, RDW Std Deviation 43.4, RDW Coeff of Paula 13.7, Plt Count 224, MPV 10.4, Immature Gran % (Auto) 0.400, Neut % (Auto) 74.9 H, Lymph % (Auto) 14.1 L, Iron % (Auto) 7.5, Eos % (Auto) 2.5, Baso % (Auto) 0.6, Absolute Neuts (auto) 7.3, Absolute Lymphs (auto) 1.38, Nucleated RBC % 0, Sodium 139, Potassium 3.3, Chloride 101, Carbon Dioxide 26.2, Anion Gap 12, BUN 23 H, Creatinine 1.25 H, Estim Creat Clear Calc 30.44 L, Est GFR (MDRD) Non-Af 42 L, BUN/Creatinine Ratio 18.4, Glucose 111 H, Calcium 9.1 Micro: Microbiology 06/20/25 13:35 Fluid - Pleural (Lung) Gram Stain - Final 06/20/25 13:35 Fluid - Pleural (Lung) Body Fluid Culture - Preliminary No growth-Final to follow 06/20/25 13:35 Fluid - Pleural (Lung) Anaerobic Culture - Preliminary No growth in 48 hours. Physical Exam Narrative General: Alert, oriented, no apparent distress HEENT: Atraumatic, normocephalic Eyes: Anicteric, normal conjunctiva, extraocular movements grossly intact Neck: Supple Respiratory: Improved aeration of both lungs with slight crackles at the bases Cardiovascular: Low-grade tachycardia GI: Soft, nontender, nondistended Extremities: 1+ bilateral lower extremity edema still but wrinkles present Musculoskeletal: Moving all extremities Neuro: No overt focal neurological deficits Skin: Chronic changes, no overt rashes appreciated Psych: Cooperative Assessment & Plan Assessment/Plan (1) Pleural effusion: (2) Atrial fibrillation: PLAN: Plan #Increased shortness of breath secondary to bilateral pleural effusions and fluid overload - Patient with bilateral pleural effusions seen on chest x-ray and CTA that were not there 2 weeks ago -BNP is actually lower than it was however at the time patient had been in RVR with rate in 140s, given effusions with increased lower extremity swelling and shortness of breath do think it is reasonable to repeat limited echo -May need to consider thoracentesis if symptoms not improving -Pending symptoms and echocardiogram may need to consider Lasix or other intervention though sx may improve w/ improved HR control -Daily weights, I's and O's -06/19: Chest x-ray today appeared worse, echo with EF 70% with mild concentric left ventricular hypertrophy, mild to moderate tricuspid valve insufficiency, PASP of 50 and no significant change from prior echocardiogram. Chest x-ray did look worse, patient may not tolerate being in A-fib, switching to p.o. Amio. Additionally will order thoracentesis for symptomatic relief and patient was placed on IV Lasix -06/20: Improving slightly on IV Lasix, thoracentesis x 1 today, tomorrow will have thoracentesis on the other side to help with quicker symptom relief -06/21: Patient underwent right thoracentesis with some improvement in symptoms, to undergo left thoracentesis, has been responding to Lasix as well, continue supportive care and mobilizing as able. Repeat EKG as it appears patient may be back in sinus rhythm, suspect that she may not tolerate being in atrial fibrillation very well which may lead to her fluid overload on top of her LVH and pulmonary hypertension. Continue amiodarone -06/22: Patient underwent bilateral thoracenteses and is improving, she has continued on IV Lasix and is having improved ability to ambulate. Continue current medications, possible DC tomorrow after walk test patient doing well #Afib w/ elevated rate -Admit to telemetry -Initial rate in ED: 119 -EKG: A-fib with a rate of [address] changes -Rate control: Patient improved with heart rate in 80s to 90s on after she got a Cardizem bolus, cardiology contacted and recommended Lopressor 25 twice daily and decreasing Cardizem to 240, orders entered -AC: Continue home Eliquis -Echocardiogram: Did have recent echo 06/06/2025 however given patient now has increased bilateral effusions we will repeat limited echo to assess EF -TSH: Within normal limits on 06/06/2025 -06/19: Heart rates been 80s to 90s but without improvement, query if patient was RVR or if this was physiologic tachycardia in the setting of A-fib, discussed with cardiology and given patient's symptoms concerned that symptoms may be exacerbated by being in A-fib patients to be switched to 200 mg 3 times daily of p.o. Amio and will hold metoprolol and Cardizem -06/20: Heart rate had been 110-120, given well clinical picture suspect that this was actually A-fib with a physiologic/compensatory tachycardia due to her work of breathing and not true RVR, management of underlying symptoms as above, patient switched over to amiodarone and attempt to help rhythm and rate -06/21: Repeating EKG as patient low-grade tachycardia however appears more regular but difficult to assess for P waves on her telemetry due to artifact -06/22: Currently in a junctional tachycardia has been pretty consistent at 115 with normal blood pressure, metoprolol added, given IV metoprolol to try to further slow rate, on amiodarone, will continue to titrate medications Chronic medical problems and/or problems not being actively addressed during today's encounter: #Hypothyroidism -Continue Synthroid #Depression/anxiety -Continue home medications #GERD -Continue PPI #DVT ppx: Not indicated already on full dose Rita Vergara MD Time spent in the patient's overall evaluation,decision-making process, review of diagnostic data, adjustment of management, discussion with other providers, nursing nursing and ancillary staff involved in patient's care documentation, 37 Minutes Charges/Coding Visit Charges Inpatient E&M: 68639 Subs Hosp L2
[2025-06-23 04:43] LABS: Hematocrit 39.8 % (37-47); Hemoglobin 13.7 g/dL (12.0-15.0); Immature Granulocytes Count 0.050 X10^3/uL (0.0-0.0); Mean Corp Hgb Conc 34.4 g/dL (32-36); Mean Corpuscular Volume 85.8 fL (81-99); Mean Platelet Vol. 10.0 fl (6.2-12.0); NRBC Flagged by Analyzer 0 % (0-5); Platelet Count 229 K/mm3 (150-450); RBC Distribution Width CV 13.8 % (11.6-14.6); RBC Distribution Width SD 42.7 fl (35.1-43.9); Red Blood Count 4.64 M/mm3 (4.2-5.4); White Blood Count 10.8 K/mm3 (4.4-11.0)
[2025-06-23 05:00] VITALS: BP 134/96; PULSE 112; RESP 16; TEMP 36.6; O2SAT 96
[2025-06-23 05:04] LABS: Anion Gap 13 (5-15); BUN 30 mg/dL (4-19); BUN/Creat Ratio 22.3 RATIO (10-20); Calcium,Total 9.0 mg/dL (7.6-11.0); Carbon Dioxide 25.3 mmol/L (21.0-32.0); Chloride 100 mmol/L (98-108); Estimated Creatinine Clearance 28.83 ml/min (50-250); Glucose 113 mg/dL (70-99); Magnesium 2.0 mg/dL (1.5-2.2); Potassium 3.5 mmol/L (3.3-5.1)
[2025-06-23] MEDS: 0.9% Saline Lock 10 ML Syringe IV (05:08)
[2025-06-23 05:50] VITALS: BMI 25.6
[2025-06-23 08:10] VITALS: BP 113/78; PULSE 110; RESP 17; TEMP 37.2; O2SAT 94
[2025-06-23] MEDS: Cholecalciferol (VIT D3) 25 MCG TABLET (1,000 UNITS) 50 MCG PO (08:56)
[2025-06-23] MEDS: APIXABAN 2.5 MG TABLET (WCH) PO (08:56)
[2025-06-23] MEDS: Calcium (Elemental) 500 MG Tablet PO (08:56)
[2025-06-23 08:57] VITALS: PULSE 110
[2025-06-23 09:51] VITALS: O2SAT 96
[2025-06-23 10:03] VITALS: O2SAT 96; O2SAT 97
[2025-06-23 13:05] VITALS: BP 122/76; PULSE 78; RESP 16; TEMP 37.1; O2SAT 96
--- NOTE | 2025-06-23 14:57 | DCINST_ITS ---
Discharge Instructions
--- NOTE | 2025-06-23 14:58 | PCM.DC.SUM ---
Providers Date of Admission: 06/18/25 Date of Discharge: 06/23/25 Primary Care Physician: Bell Gaffney, JUANC Reason For Visit: SHORTNESS OF BREATH Diagnosis Discharge Diagnosis (1) Pleural effusion: Status: Acute Code(s): J90 - Pleural effusion, not elsewhere classified (2) Atrial fibrillation: Status: Acute Code(s): I48.91 - Unspecified atrial fibrillation Plan #Increased shortness of breath secondary to bilateral pleural effusions and fluid overload #Afib w/ intermittent junctional tachycardia #Hypothyroidism #Depression/anxiety #GERD Medications at Discharge Home Medications Omeprazole [Prilosec] 40 mg PO DAILY 08/23/14 paroxetine HCl 40 mg tablet (Paxil) 40 mg PO DAILY 08/23/14 calcium carbonate 1,200 mg PO DAILY 12/04/17 cholecalciferol (vitamin D3) 50 mcg (2,000 unit) chewable tablet 2,000 unit PO BID 12/04/17 levothyroxine 50 mcg tablet 50 mcg PO DAILY 12/04/17 ascorbic acid (vitamin C) 500 mg tablet (Vitamin C) 1 g PO DAILY 05/27/23 albuterol sulfate 90 mcg/actuation aerosol inhaler (ProAir HFA) 1 puff inhalation DAILY PRN sob 06/07/25 methenamine hippurate 1 gram tablet 1 g PO QDAY PRN prevent uti 06/07/25 apixaban 2.5 mg tablet (Eliquis) 2.5 mg PO .COMPLEX #180 tabs 06/13/25 amiodarone 200 mg tablet 200 mg PO TID 30 days #90 tabs 06/23/25 furosemide 20 mg tablet (Lasix) 20 mg PO DAILY #10 tabs 06/23/25 metoprolol tartrate 25 mg tablet 25 mg PO BID 30 days #60 tabs 06/23/25 Hospital Course Procedures Thoracentesis and Transthoracic echo Summary of Care Provided Minutes Spent on Discharge: 31 Hospital Course: LINDSAY SALDIVAR, is a89 y/o F with a history of hypothyroidism, GERD, UTI, anxiety, recent diagnosis of atrial fibrillation started on Eliquis when she was diagnosed who presented [facility] ED 06/18/2025 with palpitations that became worse today and felt associated shortness of breath and walking across the room. In the ED heart rate 119 with a temp of 98.6, blood pressure 157/80, respiratory rate 28 pulse ox 98% on room air. CBC with white count 11.1, hemoglobin 14.1, troponin of 18, 21, then 18 again. No UTI. BMP with a bicarb of 17, gap of 18, BUN of 23 and a creatinine of 1.21 with a glucose of 169. Chest x-ray showed bibasilar atelectasis or pneumonia, cardiomegaly with mild congestion and bilateral pleural effusions. CTA showed sizable bilateral pleural effusions with associated airspace disease and no PE noted. Given patient was in A-fib with rate in the 120s patient was given a diltiazem bolus and cardiology was contacted who recommended decreasing Cardizem to 240 and starting Lopressor 25 mg twice daily. Given patient still feeling short of breath hospitalist contacted for admission. She was admitted and echocardiogram obtained to see if there were any significant changes from her recent 1 given she did not have significant fluid overload or pleural effusions previously but went on to develop and had worsened chest x-ray. Echo with EF and mild concentric left ventricular hypertrophy and PASP of 50 with no significant change from prior echo. Suspected that patient, given lack of significant worsening with echocardiogram, likely did not tolerate the elevated heart rate and consistently being in atrial fibrillation. Patient transitioned to amiodarone 3 times daily with plans to follow-up with her outpatient customer service advocate. She then went into a junctional tachycardia, addition of metoprolol ultimately improved heart rate to the 70s to 80s, still intermittently in fib however overall stable compared to presentation. She did require bilateral thoracenteses due to significant bilateral pleural effusions with significant improvement in respiratory status and also received IV Lasix with continued improvement in breathing and lower extremity swelling. Patient's significant shortness of breath limiting her ambulation significantly improved to the point where she was able to ambulate appropriate distances then did not desaturate did not require home O2. Verbally discussed discharge instructions with patient. She notes she has appointment with cardiology next week. No new or acute complaints on day of discharge and is feeling much better. Discharge instructions as follows: - Please follow-up with your customer service advocate next week as you have indicated you have an appointment scheduled. If there are any questions about this appointment please call their office upon discharge - You have had several medication changes, you will no longer be taking diltiazem or hydrochlorothiazide - You will be taking amiodarone 200 mg 3 times daily and metoprolol tartrate 25 mg twice daily - Additionally you will be discharged with furosemide (Lasix) 20 mg tabs to take daily until your follow-up appointment with cardiology, at that time it can be assessed if this medication needs continued or if any additional changes need to be made. If there are any concerns prior to your appointment please contact the cardiology office or your primary care physician -Weigh yourself every day. A sudden weight gain can mean you are retaining fluid. Weigh yourself at the same time of day and in the same kind of clothes. Ideally, weigh yourself first thing in the morning after you empty your bladder, but before you eat breakfast. -Please call your physician if your weight goes up by more than 2 pounds in 1 day or 5 pounds in 1 week. This can be a sign that you are retaining more fluid than you should be. - These medications have been sent into preferred pharmacy on file, [facility] in [place] - Continue your other home medications -Would recommend lab work (BMP) to check your kidney function and potassium in 3-4 days through your primary care physician's office. Please call their office upon discharge to obtain order for lab work and schedule hospital follow-up appointment. -Please call your primary care provider's office upon discharge to schedule a hospital follow up within 1 week. -For any concerning signs or symptoms please call 911 or proceed to the nearest emergency department Physical Exam Narrative General: Alert, oriented, no apparent distress HEENT: Atraumatic, normocephalic Eyes: Anicteric, normal conjunctiva, extraocular movements grossly intact Neck: Supple Respiratory: Still slight crackles but significantly improved aeration overall Cardiovascular: Regular rate GI: Soft, nontender, nondistended Extremities: Trace bilateral lower extremity edema with wrinkles, improved Musculoskeletal: Moving all extremities Neuro: No overt focal neurological deficits Skin: Chronic changes, no overt rashes appreciated Psych: Cooperative Weight / BMI Weight Weight: 67.8 kg Body Mass Index (BMI) 25.6 ABG / Lab / Microbiology Data 06/23/25 04:01 06/23/25 04:01 Laboratory: Laboratory Results - last 24 hr 06/23/25 04:01: WBC 10.8, RBC 4.64, Hgb 13.7, Hct 39.8, MCV 85.8, MCH 29.5, MCHC 34.4, RDW Std Deviation 42.7, RDW Coeff of Paula 13.8, Plt Count 229, MPV 10.0, Immature Gran % (Auto) 0.500, Neut % (Auto) 73.9 H, Lymph % (Auto) 13.1 L, [place] % (Auto) 8.2, Eos % (Auto) 3.7, Baso % (Auto) 0.6, Absolute Neuts (auto) 8.0 H, Absolute Lymphs (auto) 1.41, Nucleated RBC % 0, Sodium 138, Potassium 3.5, Chloride 100, Carbon Dioxide 25.3, Anion Gap 13, BUN 30 H, Creatinine 1.32 H, Estim Creat Clear Calc 28.83 L, Est GFR (MDRD) Non-Af 39 L, BUN/Creatinine Ratio 22.3 H, Glucose 113 H, Calcium 9.0, Magnesium 2.0 Microbiology: Microbiology 06/20/25 13:35 Fluid - Pleural (Lung) Gram Stain - Final 06/20/25 13:35 Fluid - Pleural (Lung) Body Fluid Culture - Final Culture exhibits no growth. 06/20/25 13:35 Fluid - Pleural (Lung) Anaerobic Culture - Preliminary No growth in 48 hours. D/C Instructions DC O2, CPAP, BIPAP Needs Home O2 Discharge instructions: No Meaningful Use Info Meaningful Use Meaningful Use Diagnoses (Choose all that apply): None applicable Discharge Plan Admission Admit Date/Time: 06/18/25 17:39 Primary Reason for Your Visit: Shortness of breath Attending Provider: Janine Vergara Primary Care Provider: Bell Gaffney Instructions Patient Instructions: Furosemide Additional Instructions / Restrictions: DISCHARGE INSTRUCTIONS PLEASE READ *Please take this with you to your next doctors appointment* - Please follow-up with your customer service advocate next week as you have indicated you have an appointment scheduled. If there are any questions about this appointment please call their office upon discharge - You have had several medication changes, you will no longer be taking diltiazem or hydrochlorothiazide - You will be taking amiodarone 200 mg 3 times daily and metoprolol tartrate 25 mg twice daily - Additionally you will be discharged with furosemide (Lasix) 20 mg tabs to take daily until your follow-up appointment with cardiology, at that time it can be assessed if this medication needs continued or if any additional changes need to be made. If there are any concerns prior to your appointment please contact the cardiology office or your primary care physician -Weigh yourself every day. A sudden weight gain can mean you are retaining fluid. Weigh yourself at the same time of day and in the same kind of clothes. Ideally, weigh yourself first thing in the morning after you empty your bladder, but before you eat breakfast. -Please call your physician if your weight goes up by more than 2 pounds in 1 day or 5 pounds in 1 week. This can be a sign that you are retaining more fluid than you should be. - These medications have been sent into preferred pharmacy on file, [facility] in [place] - Continue your other home medications -Would recommend lab work (BMP) to check your kidney function and potassium in 3-4 days through your primary care physician's office. Please call their office upon discharge to obtain order for lab work and schedule hospital follow-up appointment. -Please call your primary care provider's office upon discharge to schedule a hospital follow up within 1 week. -For any concerning signs or symptoms please call 911 or proceed to the nearest emergency department Discharge Orders/Prescriptions Prescriptions: New amiodarone 200 mg Tablet 200 mg PO TID 30 Days Qty: 90 0RF furosemide [Lasix] 20 mg tablet 20 mg PO DAILY Qty: 10 0RF metoprolol tartrate 25 mg Tablet 25 mg PO BID 30 Days Qty: 60 0RF Continued paroxetine HCl [Paxil] 40 MG tablet 40 mg PO DAILY Patient Comments: DEPRESSION Omeprazole [Prilosec] 40 MG capsule 40 mg PO DAILY Patient Comments: STOMACH/INDIGESTION calcium carbonate 600 MG tablet 1,200 mg PO DAILY levothyroxine 50 MCG tablet 50 mcg PO DAILY cholecalciferol (vitamin D3) 2,000 UNIT tablet,chewable 2,000 unit PO BID albuterol sulfate [ProAir HFA] 90 mcg/actuation HFA aerosol inhaler 1 puff inhalation DAILY PRN (Reason: sob) ascorbic acid (vitamin C) [Vitamin C] 500 mg tablet 1 g PO DAILY methenamine hippurate 1 gram tablet 1 g PO QDAY PRN (Reason: prevent uti) Eliquis 2.5 mg tablet 2.5 mg PO .COMPLEX Qty: 180 3RF Rx Instructions: 2.5 mg orally Twice a Day: fax to [facility]; Discontinued diltiazem HCl [Cardizem CD] 360 mg capsule,extended release 24hr 360 mg PO QDAY Qty: 90 3RF hydrochlorothiazide 12.5 mg capsule 12.5 mg PO DAILY Referrals / Follow Up: Skip Garcia MD [Med Staff - Active Staff, Cardiology] Bell Gaffney NP-C [Primary Care Provider, Internal Medicine] - Within 1 Week Disposition Disposition (needs filled in before D/C Order can be placed): Home, Self Care Charges/Coding Visit Charges Inpatient E&M: 41393 Disch Hosp >30min
--- NOTE | 2025-06-23 15:29 | PHA.DC_ITS ---
Pharmacy DC Med Rec Counseling
--- NOTE | 2025-06-23 15:29 | PHA.DC.MC.R ---
Pharmacy [facility] Counseling Pharmacy Service has performed discharge medication reconciliation and counseling for this patient. 1. AMIODARONE 200MG PO TID 2. FUROSEMIDE 20MG PO DAILY 3. METOPROLOL TARTRATE 25MG PO BID 4. STOP DILTIAZEM AND HCTZ The patient's discharge medication list was reviewed for discrepancies and discrepancies were resolved. The patient was counseled on the following discharge medications and changes in medications for homegoing were reviewed. The Reason for Use, instructions for use, and potential side effects were reviewed for all new medications. The patient's questions regarding all of their medications were answered. The patient was able to verbally demonstrate an understanding of their discharge medications. Patient counseled by student services repHugh. Medications at Discharge Home Medications Omeprazole [Prilosec] 40 mg PO DAILY 08/23/14 paroxetine HCl 40 mg tablet (Paxil) 40 mg PO DAILY 08/23/14 calcium carbonate 1,200 mg PO DAILY 12/04/17 cholecalciferol (vitamin D3) 50 mcg (2,000 unit) chewable tablet 2,000 unit PO BID 12/04/17 levothyroxine 50 mcg tablet 50 mcg PO DAILY 12/04/17 ascorbic acid (vitamin C) 500 mg tablet (Vitamin C) 1 g PO DAILY 05/27/23 albuterol sulfate 90 mcg/actuation aerosol inhaler (ProAir HFA) 1 puff inhalation DAILY PRN sob 06/07/25 methenamine hippurate 1 gram tablet 1 g PO QDAY PRN prevent uti 06/07/25 apixaban 2.5 mg tablet (Eliquis) 2.5 mg PO .COMPLEX #180 tabs 06/13/25 amiodarone 200 mg tablet 200 mg PO TID 30 days #90 tabs 06/23/25 furosemide 20 mg tablet (Lasix) 20 mg PO DAILY #10 tabs 06/23/25 metoprolol tartrate 25 mg tablet 25 mg PO BID 30 days #60 tabs 06/23/25
== END 2025-06-23 16:47 | disposition home or self-care (01) | DRG 291 ==
LOC: ED 16:29 → PCU 16:57
PROVIDERS: Admitting Provider Internal Medicine; Emergency Provider Emergency Medicine; PCP Nurse Practitioner Family; Visit Provider Internal Medicine
DX: I11.0 Hypertensive heart disease with heart failure (principal); I50.33 Acute on chronic diastolic (congestive) heart failure; I47.19 Other supraventricular tachycardia; J91.8 Pleural effusion in other conditions classified elsewhere; I27.20 Pulmonary hypertension, unspecified; E03.9 Hypothyroidism, unspecified; F32.A Depression, unspecified; I34.0 Nonrheumatic mitral (valve) insufficiency; I48.91 Unspecified atrial fibrillation; F41.9 Anxiety disorder, unspecified; K21.9 Gastro-esophageal reflux disease without esophagitis; E78.5 Hyperlipidemia, unspecified; Z79.01 Long term (current) use of anticoagulants; M81.0 Age-related osteoporosis without current pathological fracture; R06.02 Shortness of breath; Z90.49 Acquired absence of other specified parts of digestive tract; Z79.890 Hormone replacement therapy; Z79.899 Other long term (current) drug therapy; Z87.440 Personal history of urinary (tract) infections
CPT/HCPCS: 32555; 36415; 71046; 71275; 80048; 81001; 82945; 83605; 83615; 83735; 83880; 84155; 84157; 84484; 85025; 85610; 85730; 87070; 87075; 87205; 88108; 88305; 88313; 89050; 93005; 93308; 94668; 97116; 97162; 97530; 99285; Q9957; Q9967; A4216; J1938

== ENCOUNTER → 2025-06-29 | Outpatient (CLI) | payer MEDICARE, SELFPAY ==
[2025-06-29 13:24] LABS: Anion Gap 10 (5-15); BUN 23 mg/dL (4-19); BUN/Creat Ratio 17.3 RATIO (10-20); Calcium,Total 9.5 mg/dL (7.6-11.0); Carbon Dioxide 27.0 mmol/L (21.0-32.0); Chloride 103 mmol/L (98-108); Glucose 89 mg/dL (70-99); Potassium 3.9 mmol/L (3.3-5.1)
== END | disposition home or self-care (01) ==
LOC: LAB 11:33
PROVIDERS: Internal Medicine Cardiovascular Disease; Referring Provider Nurse Practitioner Gerontology; Visit Provider Nurse Practitioner Gerontology
DX: I48.91 Unspecified atrial fibrillation (principal); N28.9 Disorder of kidney and ureter, unspecified
CPT/HCPCS: 36415; 80048

== ENCOUNTER 2025-07-10 08:05 | Emergency (ER) | payer MEDICARE, SELFPAY ==
[2025-07-10] VITALS (9 sets, daily range): BP systolic 138–163; BP diastolic 77–121; PULSE 90–115; RESP 16–21; TEMP 36.4; O2SAT 92–95; BMI 25.5
--- NOTE | 2025-07-10 08:24 | ED.VIS.DYS ---
HPI History of Present Illness Chief Complaint: Shortness of Breath Informant: patient Onset/Context/Timing Onset: Weeks (1) Context: gradual Timing: Continuous Quality: Positive for Dyspnea on exertion and - (Fullness) Worsened by: Exertion (Going up stairs) Relieved by: Nothing Associated Symptoms cough, rhinorrhea and white sputum; Negative for post nasal drip, ear pain, fever, sore throat, chills, sweats, clear sputum, yellow sputum or green sputum Narrative Narrative: Patient presents with some shortness of breath that has been gradually getting worse over the past week. Patient states it has been constant. Patient states she feels like there is a fullness in her chest. Patient states it is worse with going up stairs. Patient states nothing seems to help with it. Patient admits to a cough with some white sputum. Patient also admits to some rhinorrhea. Patient denies any fevers or chills. Patient denies any chest pain. PE Risk Factors: Negative for Cancer, OCP + Smoking + > 35, Prior DVT or PE, Recent immobilization or Recent surgery [facility] Medical History Elevated blood pressure reading Anxiety Depression Kidney disease GERD (gastroesophageal reflux disease) Non-smoker Atrial fibrillation Migraines Recurrent UTI Acquired renal cyst Hyperlipidemia Hypothyroidism Osteoporosis Thyroid disease Knee pain Hemorrhoids Arthritis Hypertension Home Medications ?Medication ?Instructions ?Recorded ?Last Taken ?Type Omeprazole [Prilosec] 40 mg PO DAILY 08/23/14 05/27/23 History paroxetine HCl 40 mg tablet (Paxil) 40 mg PO DAILY 08/23/14 05/27/23 History calcium carbonate 1,200 mg PO DAILY 12/04/17 05/27/23 History cholecalciferol (vitamin D3) 50 2,000 unit PO BID 12/04/17 05/27/23 History mcg (2,000 unit) chewable tablet levothyroxine 50 mcg tablet 50 mcg PO DAILY 12/04/17 05/27/23 History ascorbic acid (vitamin C) 500 mg 1 g PO DAILY 05/27/23 05/27/23 History tablet (Vitamin C) albuterol sulfate 90 mcg/actuation 1 puff inhalation DAILY PRN sob 06/07/25 Unknown History aerosol inhaler (ProAir HFA) methenamine hippurate 1 gram tablet 1 g PO QDAY PRN prevent uti 06/07/25 Unknown History amiodarone 200 mg tablet 200 mg PO TID 30 days #90 tabs 06/23/25 Unknown Rx apixaban 2.5 mg tablet (Eliquis) 2.5 mg PO BID 4 days #8 tabs 06/23/25 Unknown Rx metoprolol tartrate 25 mg tablet 25 mg PO BID 30 days #60 tabs 06/23/25 Unknown Rx mecobalamin (vitamin B12) 1,000 1,000 mcg PO QDAY 06/29/25 Unknown History mcg chewable tablet albuterol sulfate 90 mcg/actuation 1 - 2 puff inhalation Q4H PRN PRN 07/10/25 Unknown Rx aerosol inhaler (Ventolin HFA) Wheezing ##1 Allergy/AdvReac Type Severity Reaction Status Date / Time rosuvastatin Allergy severe Verified 07/10/25 08:07 myalgias Sulfa (Sulfonamide Allergy Rash Verified 07/10/25 08:07 Antibiotics) amoxicillin (From Augmentin) AdvReac Diarrhea Verified 07/10/25 08:07 belladonna alkaloids AdvReac Other Verified 07/10/25 08:07 clavulanic acid (From AdvReac Diarrhea Verified 07/10/25 08:07 Augmentin) Family History Sister Hypertension Sister Hypertension Father CVA (cerebral vascular accident) Hypertension Mother Hypertension Anxiety disorder Brother Hypertension Surgical History H/O colonoscopy History of surgery History of carpal tunnel surgery H/O lumpectomy Hx of cholecystectomy H/O: hysterectomy Social History household members: spouse Smoking Status: Never smoker substance use type: does not use ROS ROS ED Constitutional Constitutional ED: Denies chills or fever(s) Eyes Eyes: Denies blurry vision or change in vision ENT ENT ED: Reports rhinorrhea; Denies sore throat Cardiovascular Cardiovascular: Denies chest pain or palpitations Respiratory/Chest Respiratory/Chest: Reports cough and dyspnea Gastrointestinal Gastrointestinal: Denies nausea or vomiting Genitourinary Genitourinary ED: Denies dysuria or hematuria Musculoskeletal Musculoskeletal: Denies back pain or neck pain Integumentary Denies abscess or rash Neurologic Neurologic: Denies headache(s) or weakness Allergic/Immunologic Allergic/Immunologic ED: Denies mouth swelling or urticaria EXAM Physical Exam Const Vital Signs: 07/10/25 08:05 07/10/25 08:11 07/10/25 09:00 Temperature 97.6 F L Temperature Source Oral Pulse Rate 115 H 90 Respiratory Rate 18 Respiratory Effort Short of Breath Respiratory Depth Normal Respiratory Pattern Tachypnea Blood Pressure 163/121 H 140/102 H Blood Pressure Mean 135 114 Pulse Ox 92 92 Oxygen Delivery Method Room Air Room Air Room Air 07/10/25 10:17 07/10/25 11:00 07/10/25 12:00 Temperature Temperature Source Pulse Rate 104 H 94 95 Respiratory Rate 21 H 17 Respiratory Effort Respiratory Depth Respiratory Pattern Blood Pressure 138/77 H 149/83 H 150/103 H Blood Pressure Mean 97 105 118 Pulse Ox 94 95 94 Oxygen Delivery Method 07/10/25 13:00 Temperature Temperature Source Pulse Rate 105 H Respiratory Rate Respiratory Effort Respiratory Depth Respiratory Pattern Blood Pressure 144/111 H Blood Pressure Mean 122 Pulse Ox Oxygen Delivery Method Positive well nourished and well developed General Appearance ED: well developed and NAD HEENT Reports moist mucous membranes atraumatic Eyes PERRL and EOMs intact bilaterally Neck supple, no meningeal signs and no JVD Resp normal respiratory effort and clear to auscultation bilaterally Cardio Rhythm: abnormal rhythm irregularly irregular GI non-tender and non-distended Palpation: soft Extremity General Extremety ED: Negative for edema or tenderness General Extremity: Negative for edema Neuro oriented x3, CN's II-XII intact bilaterally and no sensory deficits noted Mena Coma Scale: document GCS findings Spontaneous Obeys Commands Oriented 15 Sensorium / Orientation: alert Speech: speech normal Motor Exam: strength 5/5 throughout Psych mental status grossly normal MDM MDM MDM Narrative Medical decision making narrative: Differential diagnosis includes pneumonia, bronchitis, viral illness, cardiac dysrhythmia, cardiac ischemia, electrolyte abnormality, dehydration, gastroesophageal reflux disease, and anxiety. EKG will be obtained to assess for cardiac dysrhythmia and cardiac ischemia. Chest x-ray will be obtained to assess for pneumonia or bronchitis. CBC will be obtained to assess for leukocytosis and anemia. Basic metabolic profile will be obtained to assess for electrolyte abnormality renal function. D-dimer will be obtained to assess for pulmonary embolism. High-sensitivity troponin will be obtained to assess for cardiac ischemia. PT with INR and PTT will be obtained to assess for coagulopathy. COVID-19, influenza, RSV PCR will be obtained to assess for viral illness. History & Record Review Additional record(s) reviewed:: Prior inpatient record, Prior ED visit and Prior labs Lab Data Attestation: I reviewed the patient's lab results. Lab results narrative: CBC was reviewed and was within normal limits. Basic metabolic profile was reviewed BUN was slightly elevated at 21 and creatinine was slightly elevated at 1.29. These are consistent with previous results. PT with INR and PTT were reviewed. Pro time was 19.3 and INR is 1.6. PTT was normal at 30.8. Initial high-sensitivity troponin was reviewed and was 17. D-dimer was reviewed and was 0.56. This was normal for the patient's age. 2-hour high-sensitivity troponin was reviewed and was normal at 16. COVID-19 PCR was reviewed and was negative. Influenza PCR was reviewed and was negative for influenza A and influenza B. RSV PCR was reviewed and was negative. Labs: Laboratory Results - last 24 hr 07/10/25 07/10/25 08:45 10:53 WBC 9.4 RBC 4.55 Hgb 13.3 Hct 40.9 MCV 89.9 MCH 29.2 MCHC 32.5 RDW Std Deviation 46.6 H RDW Coeff of Paula 14.5 Plt Count 188 MPV 10.1 Immature Gran % (Auto) 0.500 Neut % (Auto) 85.4 H Lymph % (Auto) 8.2 L Catron % (Auto) 4.0 Eos % (Auto) 1.6 Baso % (Auto) 0.3 Absolute Neuts (auto) 8.0 H Absolute Lymphs (auto) 0.77 L Nucleated RBC % 0 PT 19.3 H INR 1.6 APTT 30.8 D-Dimer Quant (PE/DVT) 0.56 H* Sodium 141 Potassium 3.7 Chloride 105 Carbon Dioxide 23.0 Anion Gap 13 BUN 21 H Creatinine 1.29 H Estim Creat Clear Calc 29.03 L Est GFR (MDRD) Non-Af 40 L BUN/Creatinine Ratio 16.5 Glucose 157 H Calcium 9.2 Troponin T High Sens 17 H Troponin T Hi Sens 2 Hr 16 H Radiography Chest X-Ray - ED: 2 View, Read by ED Physician, Read by Radiologist and No Acute Disease Diagnostic Testing: Clinical Impression(s) from Imaging Studies Chest X-Ray 07/10/25 08:26 IMPRESSION: Interstitial edema is mild. Improved aeration inferior right upper lobe, right middle lobe, left lower lobe Reading Location: [facility] [place] and lateral chest x-ray was obtained. There are 2 views. On my independent interpretation, lung khan show mild interstitial edema. There is normal cardiac silhouette. Bony thorax is normal. There is no acute process noted. Radiologist also interpreted the x-ray and agrees. EKG Initial EKG: Attestation: I personally reviewed and interpreted this EKG as follows: Interpretation: Atrial Fibrillation (92) and Non-Specific ST Changes Comments: EKG was obtained. On my independent interpretation, shows atrial fibrillation with a rate of 92. QRS interval is normal at 74 ms. QTc interval is normal at 358 ms. [place] was normal. There are nonspecific ST-T wave changes. This is unchanged compared to previous EKG dated 06/29/2025. Prior EKG tracings: available for review Prior: Unchanged (06/29/2025) Treatment and Re-Evaluation :: Patient was advised of her findings. Patient was given a DuoNeb aerosol. Patient was feeling better after this. Patient was ambulated in the emergency department and maintain pulse oximeter of 93 to 95%. Patient was instructed to follow-up with her primary care physician in 5 to 7 days. Patient was given a prescription for an albuterol inhaler. Patient was instructed to return if worse in any way. Patient understood and was agreeable with the plan. All questions were answered. Discharge Plan Triage Chief Complaint: Shortness of Breath ED Provider: Gabino Valentin Dx/Rx/DC Orders Clinical Impression: Dyspnea, Atrial fibrillation Instructions: ED Dyspnea Prescriptions: New albuterol sulfate [Ventolin HFA] 90 mcg/actuation HFA aerosol inhaler 1 - 2 puff inhalation Q4H PRN PRN (Reason: Wheezing) Qty: 1 0RF No Action mecobalamin (vitamin B12) 1,000 mcg tablet,chewable 1,000 mcg PO QDAY paroxetine HCl [Paxil] 40 MG tablet 40 mg PO DAILY Patient Comments: DEPRESSION Omeprazole [Prilosec] 40 MG capsule 40 mg PO DAILY Patient Comments: STOMACH/INDIGESTION calcium carbonate 600 MG tablet 1,200 mg PO DAILY levothyroxine 50 MCG tablet 50 mcg PO DAILY cholecalciferol (vitamin D3) 2,000 UNIT tablet,chewable 2,000 unit PO BID albuterol sulfate [ProAir HFA] 90 mcg/actuation HFA aerosol inhaler 1 puff inhalation DAILY PRN (Reason: sob) ascorbic acid (vitamin C) [Vitamin C] 500 mg tablet 1 g PO DAILY methenamine hippurate 1 gram tablet 1 g PO QDAY PRN (Reason: prevent uti) amiodarone 200 mg Tablet 200 mg PO TID 30 Days Qty: 90 0RF metoprolol tartrate 25 mg Tablet 25 mg PO BID 30 Days Qty: 60 0RF Eliquis 2.5 mg tablet 2.5 mg PO BID 4 Days Qty: 8 0RF Rx Instructions: 2.5 mg orally Twice a Day: fax to [facility]; Primary Care Provider: Irasema Paige Referrals: Irasema Paige DO [Primary Care Provider, Internal Medicine] - 5-7 Days Care Physician,No Primary [Non-Staff, Medical] Print Language: Guatemalan Disposition Disposition: Home, Self Care
--- NOTE | 2025-07-10 08:26 | EKG12_ITS ---
Test Reason : SOB Blood Pressure : */* mmHG Vent. Rate : 92 BPM Atrial Rate : * BPM P-R Int : * ms QRS Dur : 74 ms QT Int : 290 ms P-R-T Axes : * 72 121 degrees QTcB Int : [address] & T wave abnormality, consider lateral ischemia Abnormal ECG Confirmed by JERICHO HUGHES, HARMONY ([id number]), editor managing newspaper ELIOT NETTLES ([id number]) on 07/12/2025 9:09:21 AM Referred By: Confirmed By: HARMONY ECHAVARRIA MD
--- NOTE | 2025-07-10 08:26 | RAD_ITS ---
PROCEDURE: CHEST PA AND LATERAL 07/10/2025 REASON FOR EXAM: DYSPNEA TECHNIQUE: Procedure Code: RADCXR Modality: DX Procedure: CHEST PA AND LATERAL COMPARISON: June 19, 2025, June 18, 2025 FINDINGS: Hardware: None EKG leads Heart: Enlarged Mediastinum: There are atherosclerotic calcifications of the thoracic aorta. Lungs: Linear interstitial markings are shown of the lung bases. Scant pleural fluid is seen at the lung bases on with likely compressive subsegmental atelectasis. Improved aeration inferior right upper lobe and right middle lobe. Improved aeration left lower lobe. Bones: Degenerative changes are identified within the thoracic spine. Prior vertebroplasty thoracolumbar region. RAD/Chest PA and Lateral IMPRESSION: Interstitial edema is mild. Improved aeration inferior right upper lobe, right middle lobe, left lower lobe Reading Location: [id number]
[2025-07-10 08:54] LABS: Hematocrit 40.9 % (37-47); Hemoglobin 13.3 g/dL (12.0-15.0); Immature Granulocytes Count 0.050 X10^3/uL (0.0-0.0); Mean Corp Hgb Conc 32.5 g/dL (32-36); Mean Corpuscular Volume 89.9 fL (81-99); Mean Platelet Vol. 10.1 fl (6.2-12.0); NRBC Flagged by Analyzer 0 % (0-5); Platelet Count 188 K/mm3 (150-450); RBC Distribution Width CV 14.5 % (11.6-14.6); RBC Distribution Width SD 46.6 fl (35.1-43.9); Red Blood Count 4.55 M/mm3 (4.2-5.4); White Blood Count 9.4 K/mm3 (4.4-11.0)
[2025-07-10 09:02] LABS: Prothrombin Time (Protime)PT. 19.3 SECONDS (11.7-14.9)
[2025-07-10 09:03] LABS: Partial Thromboplast Time 30.8 Seconds (24.1-36.2)
[2025-07-10 09:14] LABS: D-Dimer Quantitative (DVT/PE) 0.56 FEU/ug/m (0.27-0.49)
[2025-07-10 09:22] LABS: Anion Gap 13 (5-15); BUN 21 mg/dL (4-19); BUN/Creat Ratio 16.5 RATIO (10-20); Calcium,Total 9.2 mg/dL (7.6-11.0); Carbon Dioxide 23.0 mmol/L (21.0-32.0); Chloride 105 mmol/L (98-108); Estimated Creatinine Clearance 29.03 ml/min (50-250); Glucose 157 mg/dL (70-99); Potassium 3.7 mmol/L (3.3-5.1); Troponin T High Sensitivity 17 ng/L (<=14)
[2025-07-10 11:50] LABS: Troponin T High Sens 2 HR 16 ng/L (<=14)
--- NOTE | 2025-07-10 12:47 | ED.RN ---
This RN ambulated pt down hallway. Pt ambulates without assistive device. starting pulse ox 95%, dropped to 93%. Pt states she feels very short of breath. Pt breathing labored and HR up to 120BPM. Dr. Valentin notified. No new orders at this time.
== END 2025-07-10 13:31 | disposition home or self-care (01) ==
PROVIDERS: Emergency Provider Emergency Medicine; PCP Internal Medicine; Visit Provider Emergency Medicine
DX: R06.02 Shortness of breath (principal); I48.91 Unspecified atrial fibrillation; E78.5 Hyperlipidemia, unspecified; K21.9 Gastro-esophageal reflux disease without esophagitis; I10 Essential (primary) hypertension
CPT/HCPCS: 71046; 80048; 84484; 85025; 85379; 85610; 85730; 87631; 93005; 94640; 99284

== ENCOUNTER 2025-08-02 10:29 | Day surgery (SDC) | payer MEDICARE, SELFPAY ==
--- NOTE | 2025-07-25 10:01 | PCM.HP.BLA ---
History and Physical Date of Admission: 08/02/25 Patient is a very pleasant 89-year-old white female who presents for a cardioversion. The patient was evaluated in the emergency department June 06, 2025. She had come to the hospital for an echocardiogram due to lower extremity edema. Her edema has been present for about 2 years. Upon arrival she was noted to be in atrial fibrillation which was a new finding. The patient's heart rate was in the 140 bpm range. She had been previously evaluated in mid April 2025 and her primary care physician's office although no ECG was done her resting heart rate was 94 at that time. The patient has an old ECG from May 2023 with a sinus rhythm and a heart rate of 99 bpm. The patient was not aware that she was in atrial fibrillation. She had been out and had cleared her garden although she was wiped out she was able to do it without stopping. The patient has a family history of atrial fibrillation. She has never smoked, and has a history of hyperlipidemia-intolerant to statin therapy. She does have mild asthma. The patient's echocardiogram done June 06, 2025 showed left ventricular systolic function to be hyperdynamic with an ejection fraction of 70%. She had a normal right ventricle and the left atrium was severely enlarged the right atrium was moderately enlarged she had severe mitral annular calcification with mild to moderate 1-2+ MR she had 1+ TR with a right ventricular systolic pressure estimated 45 mmHg. There was aortic sclerosis with no stenosis the pulmonic valve was not well-visualized there was a normal size aortic root and a trivial pericardial effusion. She presented to the emergency room recently on 06/18/2025 with palpitations, she was noted to be in atrial fibrillation with RVR. She was admitted for further evaluation. During her hospitalization, she was put on amiodarone 200 mg 3 times a day, and metoprolol tartrate 25 mg twice daily. From a cardiac standpoint, the patient is doing well. She denies any palpitations, chest pain, pressure or heaviness. She states her SOB has improved. She denies Orthopnea, and PND. She does not have bleeding issues; no blood in urine, stool, or nosebleeds. She states she feels fatigued from the medication. She denies myalgias, or claudication. She does not have edema, or sudden weight gain. She denies lightheadedness, dizziness, syncopal or near syncopal episodes, and headaches. She states her heart rate at home is around 76. She also states that her blood pressures at home are lower that what it is today. Intake Vital Signs See EMR Allergies See EMR Medications See EMR PFSH Medical History Elevated blood pressure reading Anxiety Depression Kidney disease GERD (gastroesophageal reflux disease) Non-smoker Atrial fibrillation Migraines Recurrent UTI Acquired renal cyst Hyperlipidemia Hypothyroidism Osteoporosis Thyroid disease Knee pain Hemorrhoids Arthritis Hypertension Surgical History H/O colonoscopy History of surgery History of carpal tunnel surgery H/O lumpectomy Hx of cholecystectomy H/O: hysterectomy Family History Sister Hypertension Sister Hypertension Father CVA (cerebral vascular accident) Hypertension Mother Hypertension Anxiety disorder Brother Hypertension Social History household members: spouse Smoking Status: Never smoker substance use type: does not use ROS Const Const: Positive for fatigue; Negative for weakness, headache(s) or frequent falls Eyes Eyes: Negative for blurry vision ENT ENT: Negative for headache(s), dizziness or Nosebleed/epistaxis Cardio Chest Pain: No Palpitations: No Edema: None Muscle aches with walking: None Resp Respiratory: Negative for SOB with activity, SOB at rest or SOB orthopnea\SOB lying down GI GI: Negative nausea, vomiting, heartburn, bright, red blood in stools or black,tarry stools : Negative for hematuria Neuro Neuro: Negative for dizziness, lightheadedness, near syncope, syncope, frequent falls, headache(s), weakness or blurry vision Endo Endo: Positive for fatigue Cardiology Exam Const Appearance: cooperative, comfortable, no acute distress and well developed Nutritional Appearance: overweight Orientation: alert and oriented x3 Head Head: normal to inspection Ears: hearing grossly normal bilaterally Nose: external nose normal Face and Sinus: face symmetric Eyes General: appearance normal, both eyes and all related structures Eyelids: eyelids normal Conjunctivae: conjunctivae normal Pupils: PERRL and pupil size EOM: EOM intact bilaterally Neck Neck: normal visual inspection and no JVD Carotids: Negative bruit Chest Chest inspection: normal inspection of the chest Auscultation: Bilateral: Clear to Auscultation Cardio Palpation: normal PMI Rhythm: irregularly irregular Heart sounds: S1 normal, S2 normal and murmur; Negative rub or gallop Murmur: Grade 2/6, soft, mid systolic and LLSB GI GI: normal to inspection Neuro General: patient alert and patient oriented x3 Skin Skin: no rashes or lesions noted Extremities Pulses: Normal: Right Posterior Tibial Pulse, Left Posterior Tibial Pulse, Right Radial Pulse and Left Radial Pulse Lower Extremity Edema: +1: Bilateral Psych Psychological: normal affect Supplemental Info Supplemental Information Echocardiogram 06/18/2025: Interpretation Summary The left ventricular ejection fraction is 70 %. Mild concentric left ventricular hypertrophy. The left atrium is severely enlarged. The right atrium is moderately enlarged. Severe mitral annular calcification. Mild (1+) mitral valve insufficiency. Mild-Moderate (1-2+) tricuspid valve insufficiency. Pulmonary artery systolic pressure is 50 mmHg. Compared to prior study, there is no significant change. Echocardiogram 06/06/2025 Interpretation Summary: The left ventricular ejection fraction is 70 %. The left atrium is severely enlarged. The right atrium is moderately enlarged. Severe mitral annular calcification. Mild-Moderate (1-2+) mitral valve insufficiency. Mild (1+) tricuspid valve insufficiency. Right ventricular systolic pressure estimated to be 45 mmHg. Stress Test 07/31/2014 Conclusion: 1. Pharmacologic myocardial perfusion stress test with no evidence of ischemia. 2. Preserved ejection fraction. Chest X-Ray 06/06/2025 Impression: Bibasilar atelectasis, [id number]. No acute cardiopulmonary findings Venous Duplex US 01/06/2022 Interpretation Summary: There is no evidence of left lower extremity deep vein thrombosis. Left great saphenous vein appears patent and compressible segmentally. Normal flow patterns right common femoral vein Assessment and Plan Assessment and Plan (1) Atrial fibrillation with RVR: Status: Chronic Plan: Patient has a history of atrial fibrillation with RVR. Her echocardiogram on 06/18/2025 demonstrated ejection fraction of 70%, severely enlarged left atrium, and moderately enlarged right atrium. This was reviewed with patient. Her most recent EKG in the office demonstrated atrial fibrillation with a heart rate of 102 bpm, QT/QTc: 390/508. Did discuss with Dr. Garcia, will proceed with cardioversion. Cardioversion instructions were reviewed with patient. She verbalizes understanding. She will be asked to decrease amiodarone to 200 mg twice daily for 2 weeks and then 200 mg daily. She will continue Eliquis 5 mg twice daily without missed doses, and metoprolol tartrate 25 mg twice daily. She will continue to monitor for any concerning symptoms of atrial fibrillation.
[2025-08-01 08:04] VITALS: BMI 25.4
--- NOTE | 2025-08-02 12:12 | CARDIOVERS_ITS ---
Cardioversion Cardioversion: Patient was brought to the [facility] recovery area in a fasting state. She had been on uninterrupted Eliquis for greater than 4 weeks. She had also been fully loaded with amiodarone and is taking 200 mg daily. The patient was also on metoprolol 25 mg twice daily. After informed consent was given to the patient and her she was placed on telemetry monitoring and anterior and posterior defibrillation pads were placed. The patient received 40 mg of IV propofol. After appropriate anesthesia was documented the patient received a single 200 J synchronized cardioversion. The patient converted from atrial fibrillation into sinus bradycardia with a heart rate of 55-58 bpm. The patient's blood pressure was 136/82. And her O2 saturation remained above 93% throughout the procedure. The patient was easily arousable awoke had no obvious neurologic deficits. A full report was given to the patient's . Recommendations are for the patient to stop the metoprolol she should continue the Eliquis for at least 6 months of sinus rhythm. She should also follow-up in 1 week in the [facility] office for an ECG and blood pressure check. Given her bradycardia she may require alternative nonrate modulating medical therapy for her blood pressure. If it remains consistently above 135/85 would recommend adding low-dose amlodipine 5 mg daily. ECG following the procedure showed heart rate of 56 bpm in sinus rhythm. There were no significant ST or T wave changes. Procedures Coronary Therapeutic CF Procedures [id number]: [id number] Cardioversion electric ext
== END 2025-08-02 13:00 | disposition home or self-care (01) ==
PROVIDERS: PCP Internal Medicine; Referring Provider Internal Medicine Cardiovascular Disease; Visit Provider Internal Medicine Cardiovascular Disease
DX: I48.91 Unspecified atrial fibrillation (principal); E78.5 Hyperlipidemia, unspecified; J45.909 Unspecified asthma, uncomplicated; Z79.899 Other long term (current) drug therapy; K21.9 Gastro-esophageal reflux disease without esophagitis; I10 Essential (primary) hypertension; Z79.01 Long term (current) use of anticoagulants
CPT/HCPCS: 92960; 93005

== ENCOUNTER → 2025-08-07 | Outpatient (CLI) | payer MEDICARE, SELFPAY ==
[2025-08-07 14:34] LABS: Hematocrit 45.0 % (37-47); Hemoglobin 15.0 g/dL (12.0-15.0); Immature Granulocytes Count 0.030 X10^3/uL (0.0-0.0); Mean Corp Hgb Conc 33.3 g/dL (32-36); Mean Corpuscular Volume 88.9 fL (81-99); Mean Platelet Vol. 10.4 fl (6.2-12.0); NRBC Flagged by Analyzer 0 % (0-5); Platelet Count 196 K/mm3 (150-450); RBC Distribution Width CV 15.6 % (11.6-14.6); RBC Distribution Width SD 50.6 fl (35.1-43.9); Red Blood Count 5.06 M/mm3 (4.2-5.4); White Blood Count 8.7 K/mm3 (4.4-11.0)
[2025-08-07 15:03] LABS: Anion Gap 13 (7-18); BUN 14 mg/dL (4-19); BUN/Creat Ratio 11.2 RATIO (10-20); Calcium,Total 9.8 mg/dL (7.6-11.0); Carbon Dioxide 24.8 mmol/L (20.0-29.0); Chloride 104 mmol/L (96-106); Glucose 101 mg/dL (70-99); Potassium 3.3 mmol/L (3.5-5.1); Pro- Brain NATRIURETIC PEPTIDE 1747 pg/mL (<=1800)
== END | disposition home or self-care (01) ==
LOC: LAB 14:01
PROVIDERS: PCP Internal Medicine; Referring Provider Nurse Practitioner Family; Visit Provider Nurse Practitioner Family
DX: Z01.89 Encounter for other specified special examinations (principal); I48.91 Unspecified atrial fibrillation; E03.9 Hypothyroidism, unspecified; Z76.89 Persons encountering health services in other specified circumstances; N28.89 Other specified disorders of kidney and ureter; R05.9 Cough, unspecified; R06.00 Dyspnea, unspecified
CPT/HCPCS: 36415; 80048; 83880; 84443; 85025